=== PATIENT | female | born 1960 | race African-American/Black ===

== ENCOUNTER 2016-11-06 14:55 | Inpatient (IN) | payer OTHER ==
[~2016-11-06] VITALS: Ht 154.9 cm; Wt 86.2 kg
[2016-11-06] VITALS (18 sets, daily range): BP systolic 122–181; BP diastolic 47–84
[2016-11-06 15:55] LABS: BILIRUBIN,URINE SMALL (NEG); GLUCOSE,URINE NEGATIVE (NEG); NITRITE,URINE NEGATIVE (NEG); PH,URINE 5.5; PROTEIN,URINE NEGATIVE (NEG-TRACE); UROBILINOGEN,URINE 0.2 mg/dL (0.2 mg/dL)
[2016-11-06 15:58] LABS: BARBITURATES NEG (NEG); BENZODIAZEPINES NEG (NEG); CANNABINOIDS NEG (NEG); COCAINE NEG (NEG); METHADONE NEG (NEG); OPIATES NEG (NEG); PHENCYCLIDINE NEG (NEG)
[2016-11-06] MEDS ORDERED: hydrALAZINE 20 MG/ML VIAL. IVP ONE (16:00)
[2016-11-06] MEDS: fentaNYL PF VIAL 100 MCG/2 ML VIAL IV PRN ×2 (16:01→17:14)
[2016-11-06 16:04] LABS: BASO # 0.1 x10^3/uL (0.0-0.2); BASO % 1 % (0-3); EOS % 2 % (0-3); HEMATOCRIT 43.1 % (36.0-47.0); HEMOGLOBIN 13.9 g/dL (12.0-15.5); LYMPH # 1.9 x10^3/uL (1.0-4.8); LYMPH % 36 % (24-48); MEAN CORPUSCULAR HEMOGLOBIN 28 pg (25-35); MEAN CORPUSCULAR HGB CONC 32 g/dL (31-37); MEAN CORPUSCULAR VOLUME 87 fL (79-100); MONO % 9 % (0-9); NEUT % 53 % (31-73); PLATELET COUNT 262 x10^3/uL (140-400); RED BLOOD COUNT 4.98 x10^6/uL (3.50-5.40); RED CELL DISTRIBUTION WIDTH 14.3 % (11.5-14.5); WHITE BLOOD COUNT 5.4 x10^3/uL (4.0-11.0)
[2016-11-06 16:06] LABS: BACTERIA,URINE 0 /HPF (0-FEW); RBC,URINE 0 /HPF (0-2); SQUAMOUS EPITHELIAL CELL,UR MOD /LPF
[2016-11-06 16:13] LABS: INR 1.1 (0.8-1.1); PROTHROMBIN TIME PATIENT 13.3 SEC (11.7-14.0)
[2016-11-06 16:15] LABS: CALCIUM 9.4 mg/dL (8.5-10.1); CREATININE 0.8 mg/dL (0.6-1.0); GFR 89.1; POTASSIUM 3.9 mmol/L (3.5-5.1)
--- NOTE | 2016-11-06 16:18 | EKG ---
[facility] [address] [place] [address] Test Date: 2016-11-06 Test Time: 15:58:18 Pat Name: MIRELA PERALES Department: Room: Gender: F Education Analyst: : 1960 Requested By: YOLI HURTADO Order Number: [id number] Reading MD: Mau Ruggiero Measurements Intervals [place] Rate: 67 P: 45 [place]: 166 QRS: 27 QRSD: 82 T: 20 QT: 384 QTc: 409 Interpretive Statements SINUS RHYTHM Electronically Signed On 11-09-2016 8:42:53 CDT by Mau Ruggiero
[2016-11-06 16:21] LABS: ALBUMIN 3.7 g/dL (3.4-5.0); ALBUMIN/GLOBULIN RATIO 0.9 (1.0-1.7); TOTAL BILIRUBIN 0.3 mg/dL (0.2-1.0); TOTAL PROTEIN 7.8 g/dL (6.4-8.2)
--- NOTE | 2016-11-06 16:48 | RAD ---
CT HEAD WITHOUT CONTRAST History: htn headache . Comparison: CT head dated 07/23/2012. Procedure: Axial images are obtained of the head from the skull base through the vertex without IV contrast. Findings: Yates-white matter differentiation is preserved. The ventricles and sulci are normal for the patient's age.. No mass-effect, midline shift, hemorrhage or obvious acute infarction is identified. Basilar cisterns are patent. Bone windows demonstrate no significant calvarial abnormality.The visualized paranasal sinuses appear clear. Mastoid air cells are well aerated. IMPRESSION: No acute intracranial abnormality. PQRS Compliance Statement: One or more of the following individualized dose reduction techniques were utilized for this examination: 1. Automated exposure control 2. Adjustment of the mA and/or kV according to patient size 3. Use of iterative reconstruction technique
[2016-11-06] MEDS ORDERED: ONDANSETRON PF 4 MG/2 ML VIAL. IV PRN (17:15)
[2016-11-06] MEDS ORDERED: ACETAMINOPHEN 325 MG TABLET. PO PRN (17:15)
[2016-11-06] MEDS ORDERED: MORPHINE SULFATE 4 MG/ML DISP.SYRIN. IV PRN (17:15)
--- NOTE | 2016-11-06 17:34 | PHYS DOC ---
Past Medical History Past Medical History: No Pertinent History Past Surgical History: Cholecystectomy, Hysterectomy Alcohol Use: None Drug Use: None Adult General Chief Complaint Chief Complaint: HYPERTENSION HPI HPI Patient is a 56 year old female who presents with headache and hypertension. The patient states she woke up this morning with frontal throbbing headache. A coworker checked her blood pressure at work and found her systolic blood pressure to be greater than 200. She reports mild blurred vision. Denies speech changes, facial droop, extremity numbness or weakness, vomiting, chest pain, shortness of breath, lower extremity edema. Denies history of hypertension. Denies any known past medical history and does not take medications on a daily basis. Nonsmoker. Review of Systems Review of Systems Constitutional: Denies fever or chills Eyes: Reports blurred vision HENT: Denies nasal congestion or sore throat Respiratory: Denies cough or shortness of breath Cardiovascular: Denies chest pain or edema GI: Denies abdominal pain, nausea, vomiting Musculoskeletal: Denies back pain or joint pain Integument: Denies rash or skin lesions Neurologic: Reports headache, denies focal weakness or sensory changes Current Medications Current Medications Current Medications Medications (Trade) Dose Ordered Sig/Viv Start Time Stop Time Status Last Admin Dose Admin Fentanyl Citrate (Fentanyl 2ml Vial) 50 mcg PRN Q15MIN PRN 11/06/16 15:45 11/07/16 15:44 11/06/16 17:14 50 MCG Hydralazine HCl (Apresoline) 10 mg 1X ONCE 11/06/16 16:00 11/06/16 16:01 DC 11/06/16 16:03 10 MG Allergies Allergies Allergies Coded Allergies Type Severity Reaction Last Updated Verified No Known Drug Allergies 11/11/15 No Physical Exam Physical Exam Constitutional: obese, no acute distress, non-toxic appearance. HENT: Normocephalic, atraumatic, bilateral external ears normal, oropharynx moist, nose normal. Eyes: PERRLA, EOMI, conjunctiva normal, no discharge. Neck: supple, no stridor. no meningismus Cardiovascular: RRR, no murmurs, no edema. Lungs & Thorax: LCTAB, no wheezing, no respiratory distress. Abdomen: soft, nontender, nondistended. Skin: Warm, dry, no erythema, no rash. Back: No tenderness. Extremities: No tenderness, no edema. Neurologic: Alert and oriented X 3, CN2-12 grossly intact, symmetric strength/ sensation to UE & LE, no focal deficits noted. Psychologic: Affect normal, judgement normal, mood normal. Current Patient Data Vital Signs Vital Signs Date Time Temp Pulse Resp B/P (MAP) Pulse Ox O2 Delivery O2 Flow Rate FiO2 11/06/16 16:41 81 19 202/81 (121) 99 Room Air 11/06/16 15:08 97.9 97.9 Lab Values Laboratory Tests Test 11/06/16 15:00 11/06/16 15:50 Urine Collection Type Unknown Urine Color Yellow Urine Clarity Clear Urine pH 5.5 Urine Specific [place] 1.025 Urine Protein Negative mg/dL (NEG-TRACE) Urine Glucose (UA) Negative mg/dL (NEG) Urine Ketones (Stick) Negative mg/dL (NEG) Urine Blood Negative (NEG) Urine Nitrite Negative (NEG) Urine Bilirubin Small (NEG) Urine Urobilinogen Dipstick 0.2 mg/dL (0.2 mg/dL) Urine Leukocyte Esterase Small (NEG) Urine RBC 0 /HPF (0-2) Urine WBC 5-10 /HPF (0-4) Urine Squamous Epithelial Cells Mod /LPF Urine Transitional Epithelial Cells Few /LPF Urine Bacteria 0 /HPF (0-FEW) Urine Hyaline Casts Moderate /HPF Urine Mucus Marked /LPF Urine Opiates Screen Neg (NEG) Urine Methadone Screen Neg (NEG) Urine Barbiturates Neg (NEG) Urine Phencyclidine Screen Neg (NEG) Urine Amphetamine/Methamphetamine Neg (NEG) Urine Benzodiazepines Screen Neg (NEG) Urine Cocaine Screen Neg (NEG) Urine Cannabinoids Screen Neg (NEG) Urine Ethyl Alcohol Neg (NEG) White Blood Count 5.4 x10^3/uL (4.0-11.0) Red Blood Count 4.98 x10^6/uL (3.50-5.40) Hemoglobin 13.9 g/dL (12.0-15.5) Hematocrit 43.1 % (36.0-47.0) Mean Corpuscular Volume 87 fL (79-100) Mean Corpuscular Hemoglobin 28 pg (25-35) Mean Corpuscular Hemoglobin Concent 32 g/dL (31-37) Red Cell Distribution Width 14.3 % (11.5-14.5) Platelet Count 262 x10^3/uL (140-400) Neutrophils (%) (Auto) 53 % (31-73) Lymphocytes (%) (Auto) 36 % (24-48) Monocytes (%) (Auto) 9 % (0-9) Eosinophils (%) (Auto) 2 % (0-3) Basophils (%) (Auto) 1 % (0-3) Neutrophils # (Auto) 2.9 x10^3uL (1.8-7.7) Lymphocytes # (Auto) 1.9 x10^3/uL (1.0-4.8) Monocytes # (Auto) 0.5 x10^3/uL (0.0-1.1) Eosinophils # (Auto) 0.1 x10^3/uL (0.0-0.7) Basophils # (Auto) 0.1 x10^3/uL (0.0-0.2) Prothrombin Time 13.3 SEC (11.7-14.0) Prothrombin Time INR 1.1 (0.8-1.1) PTT 29 SEC (24-38) Sodium Level 139 mmol/L (136-145) Potassium Level 3.9 mmol/L (3.5-5.1) Chloride Level 103 mmol/L (98-107) Carbon Dioxide Level 26 mmol/L (21-32) Anion Gap 10 (6-14) Blood Urea Nitrogen 9 mg/dL (7-20) Creatinine 0.8 mg/dL (0.6-1.0) Estimated GFR (Cockcroft-Gault) 89.1 BUN/Creatinine Ratio 11 (6-20) Glucose Level 109 mg/dL (70-99) H Calcium Level 9.4 mg/dL (8.5-10.1) Total Bilirubin 0.3 mg/dL (0.2-1.0) Aspartate Amino Transferase (AST) 22 U/L (15-37) Alanine Aminotransferase (ALT) 18 U/L (14-59) Alkaline Phosphatase 72 U/L (46-116) Troponin I Quantitative < 0.017 ng/mL (0.000-0.055) GB-Jsd-[id number]-Type Natriuretic Peptide 66 pg/mL (0-124) Total Protein 7.8 g/dL (6.4-8.2) Albumin 3.7 g/dL (3.4-5.0) Albumin/Globulin Ratio 0.9 (1.0-1.7) L Laboratory Tests 11/06/16 15:50 Laboratory Tests 11/06/16 15:50 EKG EKG Interpreted by me: Normal sinus rhythm rate 67, no acute ST or T wave changes, normal intervals, no ectopy. [] Radiology/Procedures Radiology/Procedures PROCEDURE: CT HEAD WO CONTRAST CT HEAD WITHOUT CONTRAST History: htn headache . Comparison: CT head dated 07/23/2012. Procedure: Axial images are obtained of the head from the skull base through the vertex without IV contrast. Findings: Yates-white matter differentiation is preserved. The ventricles and sulci are normal for the patient's age.. No mass-effect, midline shift, hemorrhage or obvious acute infarction is identified. Basilar cisterns are patent. Bone windows demonstrate no significant calvarial abnormality.The visualized paranasal sinuses appear clear. Mastoid air cells are well aerated. IMPRESSION: No acute intracranial abnormality. PQRS Compliance Statement: One or more of the following individualized dose reduction techniques were utilized for this examination: 1. Automated exposure control 2. Adjustment of the mA and/or kV according to patient size 3. Use of iterative reconstruction technique DICTATED and SIGNED BY: BEELN VERDIN MD DATE: 11/06/16 1643[] Course & Med Decision Making Course & Med Decision Making Pertinent Labs and Imaging studies reviewed. (See chart for details) The patient presents with accelerated hypertension which is new diagnosis, and headache. Normal neurologic exam. Gave hydralazine and her blood pressure actually increased. Initiated Cardene drip. CT unremarkable for acute intracranial process. Recommended admission to hospital for further evaluation and treatment. The patient agreed with plan of care. Discussed with Dr. yates who agrees to admit to inpatient status, to the ICU. She is being admitted in stable condition. Critical care time: 35 minutes [] Dragon Disclaimer Dragon Disclaimer This electronic medical record was generated, in whole or in part, using a voice recognition dictation system. Departure Departure Impression: Primary Impression: Hypertensive emergency Disposition: ADMITTED INPATIENT Admitting Physician: Allison Yates Condition: GUARDED YOLI HURTADO MD Nov 06, 2016 17:34
--- NOTE | 2016-11-06 19:53 | PDOC1 ---
History and Physical Date of Admission Date of Admission DATE: 11/06/16 TIME: 19:48 Identification/Chief Complaint Chief Complaint headache Problems: Source Source: Chart review, Patient History of Present Illness History of Present Illness pt barreto scant med history, no meds, no MD visit in years today, came to the ER for headache, severe and generalized headache, now improved, pain was 7.10, now almost zero acclerated htn in ER, IV agents, not much better, cardene gtt started, and admit to unit Pt has prior renal stone, Hx of single kidney from , she works at [employer] Past Medical History Cardiovascular: No pertinent hx Pulmonary: No pertinent hx GI: No pertinent hx Heme/Onc: No pertinent hx Hepatobiliary: No pertinent hx Psych: No pertinent hx Rheumatologic: No pertinent hx Infectious disease: No pertinent hx ENT: No pertinent hx Past Surgical History Past Surgical History: Hysterectomy, Other (stone) Family History Family History: Other (COPD, fahter, tobaccoism) Family History: Parent Social History Smoke: No ALCOHOL: social Drugs: None Current Problem List Problem List Problems Medical Problems: (1) Hypertensive emergency Status: Acute Problems: Current Medications Current Medications Current Medications Hydralazine HCl (Apresoline) 10 mg 1X ONCE IVP Last administered on 11/06/16 16:03; Start 11/06/16 at 16:00; Stop 11/06/16 at 16:01; Status DC Fentanyl Citrate (Fentanyl 2ml Vial) 50 mcg PRN Q15MIN PRN IV PAIN GREATER THAN 3/10 Last administered on 11/06/16 17:14; Start 11/06/16 at 15:45; Stop at 15:44 Nicardipine HCl 50 mg/Sodium Chloride 270 ml @ 0 mls/hr CONT PRN IV SEE I/O RECORD Last administered on 11/06/16 17:02; Start 11/06/16 at 17:00 Ondansetron HCl (Zofran) 4 mg PRN Q8HRS PRN IV NAUSEA/VOMITING; Start 11/06/16 at 17:15; Stop 11/07/16 at 17:14 Morphine Sulfate 4 mg PRN Q2HR PRN IV PAIN; Start 11/06/16 at 17:15; Stop 11/07 at 17:14 Acetaminophen (Tylenol) 650 mg PRN Q4HRS PRN PO FEVER; Start 11/06/16 at 17:15 ; Stop 11/07/16 at 17:14 Metoprolol Tartrate (Lopressor) 25 mg BID PO ; Start 11/06/16 at 21:00; Status UNV Labetalol HCl (Normodyne) 40 mg PRN Q2HR PRN IVP HYPERTENSION, SEE COMMENTS; Start 11/06/16 at 20:00; Status UNV Zolpidem Tartrate (Ambien) 5 mg PRN QHS PRN PO INSOMNIA; Start 11/06/16 at 20: 00; Status UNV Active Scripts Active Reported No Known Medications Prior To Admisstion (Info) Each 1 Each Allergies Allergies: Coded Allergies: No Known Drug Allergies (Unverified , 11/11/15) ROS General: No: Chills, Night Sweats, Fatigue, Malaise, Appetite, Other PSYCHOLOGICAL ROS: No: Anxiety, Behavioral Disorder, Concentration difficultie , Decreased libido, Depression, Disorientation, Hallucinations, Hostility, Irritablity, Memory difficulties, Mood Swings, Obsessive thoughts, Suicidal ideation, Other Eyes: No Blurry vision, No Decreased vision, No Double vision, No Dry eyes, No Excessive tearing, No Eye Pain, No Itchy Eyes, No Loss of vision, No Photophobia , No Scotomata, No Uses contacts, No Uses glasses, No Other HEENT: YES: Heacaches, No: Visual Changes, Hearing change, Nasal congestion, Nasal discharge, Oral lesions, Sinus pain, Sore Throat, Epistaxis, Sneezing, Snoring, Tinnitus, Vertigo, Vocal changes, Other ENDOCRINE: No: Breast Changes, Galactorrhea, Hair Pattern Changes, Hot Flashes , Malaise/lethargy, Mood Swings, Palpitations, Polydipsia/polyuria, Skin Changes , Temperature Intolerance, Unexpected Weight Changes, Other Respiratory: No: Cough, Hemoptysis, Orthopnea, Pleuritic Pain, Shortness of breath, SOB with excertion, Sputum Changes, Stridor, Tachypnea, Wheezing, Other Cardiovascular: No Chest Pain, No Palpitations, No Orthopnea, No Paroxysmal Noc. Dyspnea, No Edema, No Lt Headedness, No Other Gastrointestinal: No Nausea, No Vomiting, No Abdominal Pain, No Diarrhea, No Constipation, No Melena, No Hematochezia, No Other Genitourinary: No Dysuria, No Frequency, No Incontinence, No Hematuria, No Retention, No Discharge, No Urgency, No Pain, No Flank Pain, No Other, No , No , No , No , No , No , No Musculoskeletal: No Gait Disturbance, No Joint Pain, No Joint Stiffness, No Joint Swelling, No Muscle Pain, No Muscular Weakness, No Pain In:, No Swelling In:, No Other Neurological: No Behavorial Changes, No Bowel/Bladder ControlChng, No Confusion , No Dizziness, No Gait Disturbance, No Headaches, No Impaired Coord/balance, No Memory Loss, No Numbness/Tingling, No Seizures, No Speech Problems, No Tremors, No Visual Changes, No Weakness, No Other Skin: No Dry Skin, No Eczema, No Hair Changes, No Lumps, No Mole Changes, No Mottling, No Nail Changes, No Pruritus, No Rash, No Skin Lesion Changes, No Other, No Acne Physical Exam General: Alert, Oriented X3, Cooperative, No acute distress HEENT: Atraumatic, PERRLA, EOMI, Mucous membr. moist/pink Lungs: Normal air movement Heart: no gallops, no murmurs Rectal Exam: not examined Extremities: No clubbing, No edema, Normal pulses Skin: No rashes, No significant lesion Neuro: Normal gait, Normal tone, Sensation intact, Cranial nerves 3-12 NL Psych/Mental Status: Mood NL Vitals Vitals Vital Signs Date Time Temp Pulse Resp B/P (MAP) Pulse Ox O2 Delivery O2 Flow Rate FiO2 11/06/16 19:04 84 17 172/84 (113) 97 Room Air 11/06/16 18:04 98.2 98.2 Labs Labs Laboratory Tests Test 11/06/16 15:00 11/06/16 15:50 Urine Collection Type Unknown Urine Color Yellow Urine Clarity Clear Urine pH 5.5 Urine Specific [place] 1.025 Urine Protein Negative mg/dL (NEG-TRACE) Urine Glucose (UA) Negative mg/dL (NEG) Urine Ketones (Stick) Negative mg/dL (NEG) Urine Blood Negative (NEG) Urine Nitrite Negative (NEG) Urine Bilirubin Small (NEG) Urine Urobilinogen Dipstick 0.2 mg/dL (0.2 mg/dL) Urine Leukocyte Esterase Small (NEG) Urine RBC 0 /HPF (0-2) Urine WBC 5-10 /HPF (0-4) Urine Squamous Epithelial Cells Mod /LPF Urine Transitional Epithelial Cells Few /LPF Urine Bacteria 0 /HPF (0-FEW) Urine Hyaline Casts Moderate /HPF Urine Mucus Marked /LPF Urine Opiates Screen Neg (NEG) Urine Methadone Screen Neg (NEG) Urine Barbiturates Neg (NEG) Urine Phencyclidine Screen Neg (NEG) Urine Amphetamine/Methamphetamine Neg (NEG) Urine Benzodiazepines Screen Neg (NEG) Urine Cocaine Screen Neg (NEG) Urine Cannabinoids Screen Neg (NEG) Urine Ethyl Alcohol Neg (NEG) White Blood Count 5.4 x10^3/uL (4.0-11.0) Red Blood Count 4.98 x10^6/uL (3.50-5.40) Hemoglobin 13.9 g/dL (12.0-15.5) Hematocrit 43.1 % (36.0-47.0) Mean Corpuscular Volume 87 fL (79-100) Mean Corpuscular Hemoglobin 28 pg (25-35) Mean Corpuscular Hemoglobin Concent 32 g/dL (31-37) Red Cell Distribution Width 14.3 % (11.5-14.5) Platelet Count 262 x10^3/uL (140-400) Neutrophils (%) (Auto) 53 % (31-73) Lymphocytes (%) (Auto) 36 % (24-48) Monocytes (%) (Auto) 9 % (0-9) Eosinophils (%) (Auto) 2 % (0-3) Basophils (%) (Auto) 1 % (0-3) Neutrophils # (Auto) 2.9 x10^3uL (1.8-7.7) Lymphocytes # (Auto) 1.9 x10^3/uL (1.0-4.8) Monocytes # (Auto) 0.5 x10^3/uL (0.0-1.1) Eosinophils # (Auto) 0.1 x10^3/uL (0.0-0.7) Basophils # (Auto) 0.1 x10^3/uL (0.0-0.2) Prothrombin Time 13.3 SEC (11.7-14.0) Prothromb Time International Ratio 1.1 (0.8-1.1) Activated Partial Thromboplast Time 29 SEC (24-38) Sodium Level 139 mmol/L (136-145) Potassium Level 3.9 mmol/L (3.5-5.1) Chloride Level 103 mmol/L (98-107) Carbon Dioxide Level 26 mmol/L (21-32) Anion Gap 10 (6-14) Blood Urea Nitrogen 9 mg/dL (7-20) Creatinine 0.8 mg/dL (0.6-1.0) Estimated GFR (Cockcroft-Gault) 89.1 BUN/Creatinine Ratio 11 (6-20) Glucose Level 109 mg/dL (70-99) Calcium Level 9.4 mg/dL (8.5-10.1) Total Bilirubin 0.3 mg/dL (0.2-1.0) Aspartate Amino Transf (AST/SGOT) 22 U/L (15-37) Alanine Aminotransferase (ALT/SGPT) 18 U/L (14-59) Alkaline Phosphatase 72 U/L (46-116) Troponin I Quantitative < 0.017 ng/mL (0.000-0.055) NU-Izt-O-Type Natriuretic Peptide 66 pg/mL (0-124) Total Protein 7.8 g/dL (6.4-8.2) Albumin 3.7 g/dL (3.4-5.0) Albumin/Globulin Ratio 0.9 (1.0-1.7) Laboratory Tests Test 11/06/16 15:00 11/06/16 15:50 Urine Collection Type Unknown Urine Color Yellow Urine Clarity Clear Urine pH 5.5 Urine Specific [place] 1.025 Urine Protein Negative mg/dL (NEG-TRACE) Urine Glucose (UA) Negative mg/dL (NEG) Urine Ketones (Stick) Negative mg/dL (NEG) Urine Blood Negative (NEG) Urine Nitrite Negative (NEG) Urine Bilirubin Small (NEG) Urine Urobilinogen Dipstick 0.2 mg/dL (0.2 mg/dL) Urine Leukocyte Esterase Small (NEG) Urine RBC 0 /HPF (0-2) Urine WBC 5-10 /HPF (0-4) Urine Squamous Epithelial Cells Mod /LPF Urine Transitional Epithelial Cells Few /LPF Urine Bacteria 0 /HPF (0-FEW) Urine Hyaline Casts Moderate /HPF Urine Mucus Marked /LPF Urine Opiates Screen Neg (NEG) Urine Methadone Screen Neg (NEG) Urine Barbiturates Neg (NEG) Urine Phencyclidine Screen Neg (NEG) Urine Amphetamine/Methamphetamine Neg (NEG) Urine Benzodiazepines Screen Neg (NEG) Urine Cocaine Screen Neg (NEG) Urine Cannabinoids Screen Neg (NEG) Urine Ethyl Alcohol Neg (NEG) White Blood Count 5.4 x10^3/uL (4.0-11.0) Red Blood Count 4.98 x10^6/uL (3.50-5.40) Hemoglobin 13.9 g/dL (12.0-15.5) Hematocrit 43.1 % (36.0-47.0) Mean Corpuscular Volume 87 fL (79-100) Mean Corpuscular Hemoglobin 28 pg (25-35) Mean Corpuscular Hemoglobin Concent 32 g/dL (31-37) Red Cell Distribution Width 14.3 % (11.5-14.5) Platelet Count 262 x10^3/uL (140-400) Neutrophils (%) (Auto) 53 % (31-73) Lymphocytes (%) (Auto) 36 % (24-48) Monocytes (%) (Auto) 9 % (0-9) Eosinophils (%) (Auto) 2 % (0-3) Basophils (%) (Auto) 1 % (0-3) Neutrophils # (Auto) 2.9 x10^3uL (1.8-7.7) Lymphocytes # (Auto) 1.9 x10^3/uL (1.0-4.8) Monocytes # (Auto) 0.5 x10^3/uL (0.0-1.1) Eosinophils # (Auto) 0.1 x10^3/uL (0.0-0.7) Basophils # (Auto) 0.1 x10^3/uL (0.0-0.2) Prothrombin Time 13.3 SEC (11.7-14.0) Prothromb Time International Ratio 1.1 (0.8-1.1) Activated Partial Thromboplast Time 29 SEC (24-38) Sodium Level 139 mmol/L (136-145) Potassium Level 3.9 mmol/L (3.5-5.1) Chloride Level 103 mmol/L (98-107) Carbon Dioxide Level 26 mmol/L (21-32) Anion Gap 10 (6-14) Blood Urea Nitrogen 9 mg/dL (7-20) Creatinine 0.8 mg/dL (0.6-1.0) Estimated GFR (Cockcroft-Gault) 89.1 BUN/Creatinine Ratio 11 (6-20) Glucose Level 109 mg/dL (70-99) Calcium Level 9.4 mg/dL (8.5-10.1) Total Bilirubin 0.3 mg/dL (0.2-1.0) Aspartate Amino Transf (AST/SGOT) 22 U/L (15-37) Alanine Aminotransferase (ALT/SGPT) 18 U/L (14-59) Alkaline Phosphatase 72 U/L (46-116) Troponin I Quantitative < 0.017 ng/mL (0.000-0.055) BX-Sqe-Y-Type Natriuretic Peptide 66 pg/mL (0-124) Total Protein 7.8 g/dL (6.4-8.2) Albumin 3.7 g/dL (3.4-5.0) Albumin/Globulin Ratio 0.9 (1.0-1.7) VTE Prophylaxis Ordered VTE Prophylaxis Devices: Yes VTE Pharmacological Prophylaxi: No Assessment/Plan Assessment/Plan Accelerated Htn admitted to ICU, cardene gtt, will add PO metoprolol, try to transition to PO CCB in Am single kidney, unsure if long needed for renal artery stenosis, CV consult, eval if BP much better in AM I held off on starting LEIDY-i for CV eval CT head negative Obesity, BMI 35 CECILIO BYRNES MD Nov 06, 2016 19:53
[2016-11-06] MEDS ORDERED: ZOLPIDEM 5 MG TABLET. PO PRN (20:00)
[2016-11-06] MEDS ORDERED: LABETALOL 20 MG/4 ML DISP.SYRIN. IVP PRN (20:00)
[2016-11-06] MEDS: METOPROLOL TART IMMED RELEASE 25 MG TABLET. PO SCH (21:07)
[2016-11-07] VITALS (17 sets, daily range): BP systolic 112–172; BP diastolic 49–72
--- NOTE | 2016-11-07 01:53 | ACF ---
Admission Forms Criteria HEADACHES Clinical Indications for Admission to Inpatient Care (Place 'X' for any and all applicable criteria): Admission is indicated for ANY ONE of the following(1)(2)(3)(4): [X]I. Inpatient admission required rather than observational care (Also use Headaches: Observation Care as appropriate) because of ANY ONE of the following: [ ]a) Severe pain requiring acute inpatient management [ ]b) Altered mental status that is severe or persistent [ ]c) Vomiting or dehydration that is severe or persistent [ ]d) New-onset focal neurologic deficit that is severe or persistent [X]e) Hypertension requiring inpatient treatment [ ]f) Severe (new) neurologic findings requiring inpatient care as indicated by ANY ONE of following(9)(10): [ ]1) Papilledema [ ]2) Cerebral edema [ ]3) Mass effect on CT scan [ ]4) Cerebral bleeding, ischemia, or vasospasm(16) [ ]5) Hydrocephalus(17) [ ]6) Uncontrolled seizures [ ]g) IV infusion of anticoagulation, platelet inhibitors vasoactive, or antiarrhythmic medication. [ ]h) Cerebral bleeding, hydrocephalus, or vasospasm monitoring (16) [ ]i) Increased intracranial pressure or cerebral edema monitoring (17) [ ]j) Other condition, treatment or monitoring requiring inpatient admission [ ]II. Unruptured but threatening aneurysm or vascular malformation [ ]III. Venous sinus thrombosis [ ]IV. Increased intracranial pressure [ ]V. Cerebral spinal fluid leak with decreased intracranial pressure [ ]. Medication-overuse headache that has failed all outpatient management options [ ]VII. Vasculitis (eg, giant cell (temporal) arteritis, central nervous system vasculitis) requiring IV corticosteroids, IV antithrombotic therapy, or inpatient monitoring (eg, visual symptoms or findings, other ischemic manifestations)[A](10)(11) Extended stay beyond goal length of stay may be needed for (27): [ ]a) Intractable migraine [ ]b) Subarachnoid or intracranial hemorrhage [ ]c) Malignant hypertension [ ]d) Detoxification from drug withdrawal in medication-overuse headache (29) The original [facility] content created by Marisa Girard has been revised. The portions of the content which have been revised are identified through the use of italic text or in bold, and Marisa Girard has neither reviewed nor approved the modified material.All other unmodified content is copyright [facility]. Please see references footnoted in the original [facility] edition 2016 Admission Criteria Met?: Yes DENISE COLOEY Nov 07, 2016 01:53
[2016-11-07 05:16] LABS: BASO # 0.1 x10^3/uL (0.0-0.2); BASO % 1 % (0-3); EOS % 2 % (0-3); HEMATOCRIT 42.2 % (36.0-47.0); HEMOGLOBIN 13.6 g/dL (12.0-15.5); LYMPH # 2.1 x10^3/uL (1.0-4.8); LYMPH % 34 % (24-48); MEAN CORPUSCULAR HEMOGLOBIN 28 pg (25-35); MEAN CORPUSCULAR HGB CONC 32 g/dL (31-37); MEAN CORPUSCULAR VOLUME 87 fL (79-100); MONO % 10 % (0-9); NEUT % 54 % (31-73); PLATELET COUNT 273 x10^3/uL (140-400); RED BLOOD COUNT 4.85 x10^6/uL (3.50-5.40); RED CELL DISTRIBUTION WIDTH 14.6 % (11.5-14.5); WHITE BLOOD COUNT 6.3 x10^3/uL (4.0-11.0)
[2016-11-07 05:41] LABS: CREATININE 0.9 mg/dL (0.6-1.0); GFR 77.8; POTASSIUM 3.9 mmol/L (3.5-5.1)
[2016-11-07] MEDS: METOPROLOL TART IMMED RELEASE 25 MG TABLET. PO SCH (08:02)
[2016-11-07] MEDS ORDERED: amLODIPine BESYLATE 5 MG TABLET PO SCH (09:00)
--- NOTE | 2016-11-07 10:29 | RAD ---
US RENAL DUPLEX Clinical Indication: HTN Comparison: None. Findings: The right kidney is not well visualized due to patient's body habitus and overlying bowel gas. The left kidney measures 12.6 x 6.9 x 5.1 cm. The proximal left renal artery measures 145 cm/s with resistive index of 0.77. The middle left renal artery measures 152 cm/s with a resistive index of 0.80. The distal left renal artery measures 83 cm/s with a resistive index of 0.79. The aorta measures 130 cm/s. The left renal artery to aortic ratio is 1.17. IMPRESSION: 1. Normal left renal ultrasound and duplex Doppler. 2. The right kidney is not well-visualized due to the patient's body habitus and overlying bowel gas.
--- NOTE | 2016-11-07 13:06 | PDOC ---
PROGRESS NOTES Chief Complaint Chief Complaint Accelerated HTN single kidney, no renal A stenosis Obesity, BMI 35 plan: off cardine drip overnight BP ok without meds, HR LOWER side ok to transfer out of ICU add amlodipine 5mg daily, pt never took HTN meds. may increase dose if need more dc metoprolol renal duplex A done, no stenosis dvt ppx History of Present Illness History of Present Illness headache better no chest pain, sob bp ok when off cardine drip kwame at 60s Vitals Vitals Vital Signs Date Time Temp Pulse Resp B/P (MAP) Pulse Ox O2 Delivery O2 Flow Rate FiO2 11/07/16 12:00 97.5 69 18 164/62 (96) 97 Room Air 97.5 Physical Exam General: Alert, Oriented X3, Cooperative, No acute distress Heart: Regular rate, Normal S1, Normal S2 Lungs: Clear Abdomen: Normal bowel sounds, Soft Extremities: No clubbing, No edema, Normal pulses Skin: No rashes, No significant lesion Labs LABS Laboratory Tests Test 11/06/16 15:00 11/06/16 15:50 11/07/16 04:40 11/07/16 04:49 Urine Collection Type Unknown Urine Color Yellow Urine Clarity Clear Urine pH 5.5 Urine Specific [place] 1.025 Urine Protein Negative mg/dL (NEG-TRACE) Urine Glucose (UA) Negative mg/dL (NEG) Urine Ketones (Stick) Negative mg/dL (NEG) Urine Blood Negative (NEG) Urine Nitrite Negative (NEG) Urine Bilirubin Small (NEG) Urine Urobilinogen Dipstick 0.2 mg/dL (0.2 mg/dL) Urine Leukocyte Esterase Small (NEG) Urine RBC 0 /HPF (0-2) Urine WBC 5-10 /HPF (0-4) Urine Squamous Epithelial Cells Mod /LPF Urine Transitional Epithelial Cells Few /LPF Urine Bacteria 0 /HPF (0-FEW) Urine Hyaline Casts Moderate /HPF Urine Mucus Marked /LPF Urine Opiates Screen Neg (NEG) Urine Methadone Screen Neg (NEG) Urine Barbiturates Neg (NEG) Urine Phencyclidine Screen Neg (NEG) Urine Amphetamine/Methamphetamine Neg (NEG) Urine Benzodiazepines Screen Neg (NEG) Urine Cocaine Screen Neg (NEG) Urine Cannabinoids Screen Neg (NEG) Urine Ethyl Alcohol Neg (NEG) White Blood Count 5.4 x10^3/uL (4.0-11.0) 6.3 x10^3/uL (4.0-11.0) Red Blood Count 4.98 x10^6/uL (3.50-5.40) 4.85 x10^6/uL (3.50-5.40) Hemoglobin 13.9 g/dL (12.0-15.5) 13.6 g/dL (12.0-15.5) Hematocrit 43.1 % (36.0-47.0) 42.2 % (36.0-47.0) Mean Corpuscular Volume 87 fL (79-100) 87 fL (79-100) Mean Corpuscular Hemoglobin 28 pg (25-35) 28 pg (25-35) Mean Corpuscular Hemoglobin Concent 32 g/dL (31-37) 32 g/dL (31-37) Red Cell Distribution Width 14.3 % (11.5-14.5) 14.6 % (11.5-14.5) Platelet Count 262 x10^3/uL (140-400) 273 x10^3/uL (140-400) Neutrophils (%) (Auto) 53 % (31-73) 54 % (31-73) Lymphocytes (%) (Auto) 36 % (24-48) 34 % (24-48) Monocytes (%) (Auto) 9 % (0-9) 10 % (0-9) Eosinophils (%) (Auto) 2 % (0-3) 2 % (0-3) Basophils (%) (Auto) 1 % (0-3) 1 % (0-3) Neutrophils # (Auto) 2.9 x10^3uL (1.8-7.7) 3.4 x10^3uL (1.8-7.7) Lymphocytes # (Auto) 1.9 x10^3/uL (1.0-4.8) 2.1 x10^3/uL (1.0-4.8) Monocytes # (Auto) 0.5 x10^3/uL (0.0-1.1) 0.6 x10^3/uL (0.0-1.1) Eosinophils # (Auto) 0.1 x10^3/uL (0.0-0.7) 0.1 x10^3/uL (0.0-0.7) Basophils # (Auto) 0.1 x10^3/uL (0.0-0.2) 0.1 x10^3/uL (0.0-0.2) Prothrombin Time 13.3 SEC (11.7-14.0) Prothromb Time International Ratio 1.1 (0.8-1.1) Activated Partial Thromboplast Time 29 SEC (24-38) Sodium Level 139 mmol/L (136-145) 140 mmol/L (136-145) Potassium Level 3.9 mmol/L (3.5-5.1) 3.9 mmol/L (3.5-5.1) Chloride Level 103 mmol/L (98-107) 104 mmol/L (98-107) Carbon Dioxide Level 26 mmol/L (21-32) 27 mmol/L (21-32) Anion Gap 10 (6-14) 9 (6-14) Blood Urea Nitrogen 9 mg/dL (7-20) 14 mg/dL (7-20) Creatinine 0.8 mg/dL (0.6-1.0) 0.9 mg/dL (0.6-1.0) Estimated GFR (Cockcroft-Gault) 89.1 77.8 BUN/Creatinine Ratio 11 (6-20) Glucose Level 109 mg/dL (70-99) 103 mg/dL (70-99) Calcium Level 9.4 mg/dL (8.5-10.1) 9.0 mg/dL (8.5-10.1) Total Bilirubin 0.3 mg/dL (0.2-1.0) Aspartate Amino Transf (AST/SGOT) 22 U/L (15-37) Alanine Aminotransferase (ALT/SGPT) 18 U/L (14-59) Alkaline Phosphatase 72 U/L (46-116) Troponin I Quantitative < 0.017 ng/mL (0.000-0.055) ZH-Uqi-A-Type Natriuretic Peptide 66 pg/mL (0-124) Total Protein 7.8 g/dL (6.4-8.2) Albumin 3.7 g/dL (3.4-5.0) Albumin/Globulin Ratio 0.9 (1.0-1.7) Review of Systems Review of Systems no fever, chills, sob or chest pain Assessment and Plan Assessmemt and Plan Problems Medical Problems: (1) Hypertensive emergency Status: Acute Problems: Comment Review of Relevant I have reviewed the following items thang (where applicable) has been applied. Labs Laboratory Tests Test 11/06/16 15:00 11/06/16 15:50 11/07/16 04:40 11/07/16 04:49 Urine Collection Type Unknown Urine Color Yellow Urine Clarity Clear Urine pH 5.5 Urine Specific [place] 1.025 Urine Protein Negative mg/dL (NEG-TRACE) Urine Glucose (UA) Negative mg/dL (NEG) Urine Ketones (Stick) Negative mg/dL (NEG) Urine Blood Negative (NEG) Urine Nitrite Negative (NEG) Urine Bilirubin Small (NEG) Urine Urobilinogen Dipstick 0.2 mg/dL (0.2 mg/dL) Urine Leukocyte Esterase Small (NEG) Urine RBC 0 /HPF (0-2) Urine WBC 5-10 /HPF (0-4) Urine Squamous Epithelial Cells Mod /LPF Urine Transitional Epithelial Cells Few /LPF Urine Bacteria 0 /HPF (0-FEW) Urine Hyaline Casts Moderate /HPF Urine Mucus Marked /LPF Urine Opiates Screen Neg (NEG) Urine Methadone Screen Neg (NEG) Urine Barbiturates Neg (NEG) Urine Phencyclidine Screen Neg (NEG) Urine Amphetamine/Methamphetamine Neg (NEG) Urine Benzodiazepines Screen Neg (NEG) Urine Cocaine Screen Neg (NEG) Urine Cannabinoids Screen Neg (NEG) Urine Ethyl Alcohol Neg (NEG) White Blood Count 5.4 x10^3/uL (4.0-11.0) 6.3 x10^3/uL (4.0-11.0) Red Blood Count 4.98 x10^6/uL (3.50-5.40) 4.85 x10^6/uL (3.50-5.40) Hemoglobin 13.9 g/dL (12.0-15.5) 13.6 g/dL (12.0-15.5) Hematocrit 43.1 % (36.0-47.0) 42.2 % (36.0-47.0) Mean Corpuscular Volume 87 fL (79-100) 87 fL (79-100) Mean Corpuscular Hemoglobin 28 pg (25-35) 28 pg (25-35) Mean Corpuscular Hemoglobin Concent 32 g/dL (31-37) 32 g/dL (31-37) Red Cell Distribution Width 14.3 % (11.5-14.5) 14.6 % (11.5-14.5) Platelet Count 262 x10^3/uL (140-400) 273 x10^3/uL (140-400) Neutrophils (%) (Auto) 53 % (31-73) 54 % (31-73) Lymphocytes (%) (Auto) 36 % (24-48) 34 % (24-48) Monocytes (%) (Auto) 9 % (0-9) 10 % (0-9) Eosinophils (%) (Auto) 2 % (0-3) 2 % (0-3) Basophils (%) (Auto) 1 % (0-3) 1 % (0-3) Neutrophils # (Auto) 2.9 x10^3uL (1.8-7.7) 3.4 x10^3uL (1.8-7.7) Lymphocytes # (Auto) 1.9 x10^3/uL (1.0-4.8) 2.1 x10^3/uL (1.0-4.8) Monocytes # (Auto) 0.5 x10^3/uL (0.0-1.1) 0.6 x10^3/uL (0.0-1.1) Eosinophils # (Auto) 0.1 x10^3/uL (0.0-0.7) 0.1 x10^3/uL (0.0-0.7) Basophils # (Auto) 0.1 x10^3/uL (0.0-0.2) 0.1 x10^3/uL (0.0-0.2) Prothrombin Time 13.3 SEC (11.7-14.0) Prothromb Time International Ratio 1.1 (0.8-1.1) Activated Partial Thromboplast Time 29 SEC (24-38) Sodium Level 139 mmol/L (136-145) 140 mmol/L (136-145) Potassium Level 3.9 mmol/L (3.5-5.1) 3.9 mmol/L (3.5-5.1) Chloride Level 103 mmol/L (98-107) 104 mmol/L (98-107) Carbon Dioxide Level 26 mmol/L (21-32) 27 mmol/L (21-32) Anion Gap 10 (6-14) 9 (6-14) Blood Urea Nitrogen 9 mg/dL (7-20) 14 mg/dL (7-20) Creatinine 0.8 mg/dL (0.6-1.0) 0.9 mg/dL (0.6-1.0) Estimated GFR (Cockcroft-Gault) 89.1 77.8 BUN/Creatinine Ratio 11 (6-20) Glucose Level 109 mg/dL (70-99) 103 mg/dL (70-99) Calcium Level 9.4 mg/dL (8.5-10.1) 9.0 mg/dL (8.5-10.1) Total Bilirubin 0.3 mg/dL (0.2-1.0) Aspartate Amino Transf (AST/SGOT) 22 U/L (15-37) Alanine Aminotransferase (ALT/SGPT) 18 U/L (14-59) Alkaline Phosphatase 72 U/L (46-116) Troponin I Quantitative < 0.017 ng/mL (0.000-0.055) TB-Zsc-W-Type Natriuretic Peptide 66 pg/mL (0-124) Total Protein 7.8 g/dL (6.4-8.2) Albumin 3.7 g/dL (3.4-5.0) Albumin/Globulin Ratio 0.9 (1.0-1.7) Laboratory Tests Test 11/06/16 15:00 11/06/16 15:50 11/07/16 04:40 11/07/16 04:49 Urine Collection Type Unknown Urine Color Yellow Urine Clarity Clear Urine pH 5.5 Urine Specific [place] 1.025 Urine Protein Negative mg/dL (NEG-TRACE) Urine Glucose (UA) Negative mg/dL (NEG) Urine Ketones (Stick) Negative mg/dL (NEG) Urine Blood Negative (NEG) Urine Nitrite Negative (NEG) Urine Bilirubin Small (NEG) Urine Urobilinogen Dipstick 0.2 mg/dL (0.2 mg/dL) Urine Leukocyte Esterase Small (NEG) Urine RBC 0 /HPF (0-2) Urine WBC 5-10 /HPF (0-4) Urine Squamous Epithelial Cells Mod /LPF Urine Transitional Epithelial Cells Few /LPF Urine Bacteria 0 /HPF (0-FEW) Urine Hyaline Casts Moderate /HPF Urine Mucus Marked /LPF Urine Opiates Screen Neg (NEG) Urine Methadone Screen Neg (NEG) Urine Barbiturates Neg (NEG) Urine Phencyclidine Screen Neg (NEG) Urine Amphetamine/Methamphetamine Neg (NEG) Urine Benzodiazepines Screen Neg (NEG) Urine Cocaine Screen Neg (NEG) Urine Cannabinoids Screen Neg (NEG) Urine Ethyl Alcohol Neg (NEG) White Blood Count 5.4 x10^3/uL (4.0-11.0) 6.3 x10^3/uL (4.0-11.0) Red Blood Count 4.98 x10^6/uL (3.50-5.40) 4.85 x10^6/uL (3.50-5.40) Hemoglobin 13.9 g/dL (12.0-15.5) 13.6 g/dL (12.0-15.5) Hematocrit 43.1 % (36.0-47.0) 42.2 % (36.0-47.0) Mean Corpuscular Volume 87 fL (79-100) 87 fL (79-100) Mean Corpuscular Hemoglobin 28 pg (25-35) 28 pg (25-35) Mean Corpuscular Hemoglobin Concent 32 g/dL (31-37) 32 g/dL (31-37) Red Cell Distribution Width 14.3 % (11.5-14.5) 14.6 % (11.5-14.5) Platelet Count 262 x10^3/uL (140-400) 273 x10^3/uL (140-400) Neutrophils (%) (Auto) 53 % (31-73) 54 % (31-73) Lymphocytes (%) (Auto) 36 % (24-48) 34 % (24-48) Monocytes (%) (Auto) 9 % (0-9) 10 % (0-9) Eosinophils (%) (Auto) 2 % (0-3) 2 % (0-3) Basophils (%) (Auto) 1 % (0-3) 1 % (0-3) Neutrophils # (Auto) 2.9 x10^3uL (1.8-7.7) 3.4 x10^3uL (1.8-7.7) Lymphocytes # (Auto) 1.9 x10^3/uL (1.0-4.8) 2.1 x10^3/uL (1.0-4.8) Monocytes # (Auto) 0.5 x10^3/uL (0.0-1.1) 0.6 x10^3/uL (0.0-1.1) Eosinophils # (Auto) 0.1 x10^3/uL (0.0-0.7) 0.1 x10^3/uL (0.0-0.7) Basophils # (Auto) 0.1 x10^3/uL (0.0-0.2) 0.1 x10^3/uL (0.0-0.2) Prothrombin Time 13.3 SEC (11.7-14.0) Prothromb Time International Ratio 1.1 (0.8-1.1) Activated Partial Thromboplast Time 29 SEC (24-38) Sodium Level 139 mmol/L (136-145) 140 mmol/L (136-145) Potassium Level 3.9 mmol/L (3.5-5.1) 3.9 mmol/L (3.5-5.1) Chloride Level 103 mmol/L (98-107) 104 mmol/L (98-107) Carbon Dioxide Level 26 mmol/L (21-32) 27 mmol/L (21-32) Anion Gap 10 (6-14) 9 (6-14) Blood Urea Nitrogen 9 mg/dL (7-20) 14 mg/dL (7-20) Creatinine 0.8 mg/dL (0.6-1.0) 0.9 mg/dL (0.6-1.0) Estimated GFR (Cockcroft-Gault) 89.1 77.8 BUN/Creatinine Ratio 11 (6-20) Glucose Level 109 mg/dL (70-99) 103 mg/dL (70-99) Calcium Level 9.4 mg/dL (8.5-10.1) 9.0 mg/dL (8.5-10.1) Total Bilirubin 0.3 mg/dL (0.2-1.0) Aspartate Amino Transf (AST/SGOT) 22 U/L (15-37) Alanine Aminotransferase (ALT/SGPT) 18 U/L (14-59) Alkaline Phosphatase 72 U/L (46-116) Troponin I Quantitative < 0.017 ng/mL (0.000-0.055) QR-Qfk-N-Type Natriuretic Peptide 66 pg/mL (0-124) Total Protein 7.8 g/dL (6.4-8.2) Albumin 3.7 g/dL (3.4-5.0) Albumin/Globulin Ratio 0.9 (1.0-1.7) Medications Current Medications Hydralazine HCl (Apresoline) 10 mg 1X ONCE IVP Last administered on 11/06/16 16:03; Start 11/06/16 at 16:00; Stop 11/06/16 at 16:01; Status DC Fentanyl Citrate (Fentanyl 2ml Vial) 50 mcg PRN Q15MIN PRN IV PAIN GREATER THAN 3/10 Last administered on 11/06/16 17:14; Start 11/06/16 at 15:45; Stop at 15:44 Nicardipine HCl 50 mg/Sodium Chloride 270 ml @ 0 mls/hr CONT PRN IV SEE I/O RECORD Last administered on 11/06/16 22:01; Start 11/06/16 at 17:00; Stop 11/07 at 12:00; Status DC Ondansetron HCl (Zofran) 4 mg PRN Q8HRS PRN IV NAUSEA/VOMITING; Start 11/06/16 at 17:15; Stop 11/07/16 at 17:14 Morphine Sulfate 4 mg PRN Q2HR PRN IV PAIN; Start 11/06/16 at 17:15; Stop 11/07 at 17:14 Acetaminophen (Tylenol) 650 mg PRN Q4HRS PRN PO FEVER; Start 11/06/16 at 17:15 ; Stop 11/07/16 at 17:14 Metoprolol Tartrate (Lopressor) 25 mg BID PO Last administered on 11/06/16 21: 07; Start 11/06/16 at 21:00; Stop 11/07/16 at 08:05; Status DC Labetalol HCl (Normodyne) 40 mg PRN Q2HR PRN IVP HYPERTENSION, SEE COMMENTS; Start 11/06/16 at 20:00 Zolpidem Tartrate (Ambien) 5 mg PRN QHS PRN PO INSOMNIA; Start 11/06/16 at 20: 00 Amlodipine Besylate (Norvasc) 5 mg DAILY PO Last administered on 11/07/16t 08: 52; Start 11/07/16 at 09:00 Active Scripts Active Reported No Known Medications Prior To Admisstion (Info) Each 1 Each Vitals/I & O Vital Sign - Last 24 Hours 11/06/16 11/06/16 11/06/16 11/06/16 15:08 16:03 16:41 17:04 Temp 97.9 97.9 Pulse 78 61 81 Resp 20 19 B/P (MAP) 215/90 (131) 227/98 202/81 (121) 191/79 (116) Pulse Ox 97 99 O2 Delivery Room Air Room Air 11/06/16 11/06/16 11/06/16 11/06/16 17:14 18:04 18:13 18:46 Temp 98.2 98.2 Pulse 100 80 Resp 20 18 B/P (MAP) 178/80 (112) 159/69 (99) 181/58 (99) Pulse Ox 97 96 O2 Delivery Room Air Room Air Room Air 11/06/16 11/06/16 11/06/16 11/06/16 19:04 19:15 19:30 19:45 Pulse 84 96 78 76 Resp 17 18 18 18 B/P (MAP) 172/84 (113) 164/51 (88) 140/52 (81) 155/62 (93) Pulse Ox 97 98 96 96 O2 Delivery Room Air Room Air Room Air Room Air 11/06/16 11/06/16 11/06/16 11/06/16 20:00 20:15 20:30 20:45 Temp 97.7 97.7 Pulse 76 74 72 74 Resp 16 B/P (MAP) 137/60 (85) 147/52 (83) 141/51 (81) 147/58 (87) Pulse Ox 96 95 95 95 O2 Delivery Room Air Room Air Room Air Room Air 11/06/16 11/06/16 11/06/16 11/06/16 21:00 21:07 22:00 22:15 Pulse 80 82 78 76 B/P (MAP) 150/53 (85) 150/53 131/60 (83) 147/61 (89) Pulse Ox 96 95 O2 Delivery Room Air Room Air Room Air 7/24/17 7/24/17 7/24/17 7/24/17 22:30 22:45 23:00 23:15 Pulse 74 66 62 62 B/P (MAP) 137/57 (83) 129/63 (85) 136/48 (77) 123/47 (72) Pulse Ox 94 94 95 95 O2 Delivery Room Air Room Air Room Air Room Air 11/06/16 11/07/16 11/07/16 11/07/16 23:30 00:00 00:30 01:00 Pulse 60 60 60 60 Resp 14 B/P (MAP) 122/49 (73) 131/51 (77) 136/53 (80) 122/60 (80) Pulse Ox 94 94 96 O2 Delivery Room Air Room Air Room Air Room Air 11/07/16 11/07/16 11/07/16 11/07/16 01:30 02:00 02:30 03:00 Pulse 58 58 58 58 Resp 14 14 14 14 B/P (MAP) 121/58 (79) 128/53 (78) 129/54 (79) 128/54 (78) O2 Delivery Room Air Room Air Room Air Room Air 11/07/16 11/07/16 11/07/16 11/07/16 04:00 05:00 06:00 07:00 Temp 97.9 97.9 Pulse 62 60 66 62 Resp 15 15 17 15 B/P (MAP) 140/64 (89) 129/62 (84) 131/57 (81) 133/58 (83) Pulse Ox 96 96 97 O2 Delivery Room Air Room Air Room Air Room Air 11/07/16 11/07/16 11/07/16 11/07/16 07:56 08:00 08:52 12:00 Temp 97.5 97.5 Pulse 70 69 Resp 27 18 B/P (MAP) 131/50 (77) 131/50 164/62 (96) Pulse Ox 97 O2 Delivery Room Air Room Air Room Air Intake and Output 11/06/16 11/06/16 11/07/16 15:00 23:00 07:00 Intake Total 1010 ml 372 ml Output Total 350 ml Balance 1010 ml 22 ml VLADIMIR ARNOLD MD Nov 07, 2016 13:05
[2016-11-07] MEDS ORDERED: traMADol 50 MG TABLET PO PRN (13:15)
[2016-11-07] MEDS ORDERED: ONDANSETRON PF 4 MG/2 ML VIAL. IV PRN (13:15)
[2016-11-07] MEDS ORDERED: MORPHINE SULFATE 2 MG/ML DISP.SYRIN. IV PRN (13:15)
[2016-11-07] MEDS ORDERED: DOCUSATE SODIUM 100 MG CAPSULE. PO PRN (13:15)
[2016-11-07] MEDS ORDERED: hydrALAZINE 20 MG/ML VIAL. IVP PRN ×2 (13:15→15:15)
[2016-11-07] MEDS ORDERED: ACETAMINOPHEN 325 MG TABLET. PO PRN (13:15)
[2016-11-07] MEDS: ENOXAPARIN 40 MG/0.4 ML SYRINGE. SQ SCH (14:00)
--- NOTE | 2016-11-07 15:07 | PDOC ---
PROGRESS NOTES Chief Complaint Chief Complaint SIEGEL Accelerated HTN ASSESSMENT AND PLAN: 1. HTN: still poorly controlled, on Norvasc 5. BB stopped 2/2 borderline kwame. increase Norvasc; decrease threshhold for hydralazine PRN 2. Single kidney; renal US without renal artery stenosis 3. Obesity, BMI 35 4. Prophylaxis: lovenox History of Present Illness History of Present Illness SIEGEL resolved. no CP Vitals Vitals Vital Signs Date Time Temp Pulse Resp B/P (MAP) Pulse Ox O2 Delivery O2 Flow Rate FiO2 11/07/16 14:29 97.8 75 18 172/55 (94) 96 Room Air 97.8 Physical Exam General: Alert, Oriented X3, Cooperative, No acute distress Heart: Regular rate Lungs: Clear Abdomen: Normal bowel sounds, Soft Extremities: No clubbing, No edema Skin: No rashes Labs LABS Laboratory Tests Test 11/06/16 15:50 11/07/16 04:40 11/07/16 04:49 White Blood Count 5.4 x10^3/uL (4.0-11.0) 6.3 x10^3/uL (4.0-11.0) Red Blood Count 4.98 x10^6/uL (3.50-5.40) 4.85 x10^6/uL (3.50-5.40) Hemoglobin 13.9 g/dL (12.0-15.5) 13.6 g/dL (12.0-15.5) Hematocrit 43.1 % (36.0-47.0) 42.2 % (36.0-47.0) Mean Corpuscular Volume 87 fL (79-100) 87 fL (79-100) Mean Corpuscular Hemoglobin 28 pg (25-35) 28 pg (25-35) Mean Corpuscular Hemoglobin Concent 32 g/dL (31-37) 32 g/dL (31-37) Red Cell Distribution Width 14.3 % (11.5-14.5) 14.6 % (11.5-14.5) Platelet Count 262 x10^3/uL (140-400) 273 x10^3/uL (140-400) Neutrophils (%) (Auto) 53 % (31-73) 54 % (31-73) Lymphocytes (%) (Auto) 36 % (24-48) 34 % (24-48) Monocytes (%) (Auto) 9 % (0-9) 10 % (0-9) Eosinophils (%) (Auto) 2 % (0-3) 2 % (0-3) Basophils (%) (Auto) 1 % (0-3) 1 % (0-3) Neutrophils # (Auto) 2.9 x10^3uL (1.8-7.7) 3.4 x10^3uL (1.8-7.7) Lymphocytes # (Auto) 1.9 x10^3/uL (1.0-4.8) 2.1 x10^3/uL (1.0-4.8) Monocytes # (Auto) 0.5 x10^3/uL (0.0-1.1) 0.6 x10^3/uL (0.0-1.1) Eosinophils # (Auto) 0.1 x10^3/uL (0.0-0.7) 0.1 x10^3/uL (0.0-0.7) Basophils # (Auto) 0.1 x10^3/uL (0.0-0.2) 0.1 x10^3/uL (0.0-0.2) Prothrombin Time 13.3 SEC (11.7-14.0) Prothromb Time International Ratio 1.1 (0.8-1.1) Activated Partial Thromboplast Time 29 SEC (24-38) Sodium Level 139 mmol/L (136-145) 140 mmol/L (136-145) Potassium Level 3.9 mmol/L (3.5-5.1) 3.9 mmol/L (3.5-5.1) Chloride Level 103 mmol/L (98-107) 104 mmol/L (98-107) Carbon Dioxide Level 26 mmol/L (21-32) 27 mmol/L (21-32) Anion Gap 10 (6-14) 9 (6-14) Blood Urea Nitrogen 9 mg/dL (7-20) 14 mg/dL (7-20) Creatinine 0.8 mg/dL (0.6-1.0) 0.9 mg/dL (0.6-1.0) Estimated GFR (Cockcroft-Gault) 89.1 77.8 BUN/Creatinine Ratio 11 (6-20) Glucose Level 109 mg/dL (70-99) 103 mg/dL (70-99) Calcium Level 9.4 mg/dL (8.5-10.1) 9.0 mg/dL (8.5-10.1) Total Bilirubin 0.3 mg/dL (0.2-1.0) Aspartate Amino Transf (AST/SGOT) 22 U/L (15-37) Alanine Aminotransferase (ALT/SGPT) 18 U/L (14-59) Alkaline Phosphatase 72 U/L (46-116) Troponin I Quantitative < 0.017 ng/mL (0.000-0.055) SH-Yzo-L-Type Natriuretic Peptide 66 pg/mL (0-124) Total Protein 7.8 g/dL (6.4-8.2) Albumin 3.7 g/dL (3.4-5.0) Albumin/Globulin Ratio 0.9 (1.0-1.7) STAR LOWERY MD Nov 07, 2016 15:07
[2016-11-07] MEDS ORDERED: amLODIPine BESYLATE 5 MG TABLET PO ONE (17:30)
[2016-11-08 03:26] VITALS: BP 163/68
[2016-11-08 05:07] LABS: BASO % 1 % (0-3); EOS % 3 % (0-3); HEMATOCRIT 40.1 % (36.0-47.0); HEMOGLOBIN 12.8 g/dL (12.0-15.5); LYMPH # 2.4 x10^3/uL (1.0-4.8); LYMPH % 41 % (24-48); MEAN CORPUSCULAR HEMOGLOBIN 28 pg (25-35); MEAN CORPUSCULAR HGB CONC 32 g/dL (31-37); MEAN CORPUSCULAR VOLUME 88 fL (79-100); MONO % 10 % (0-9); NEUT % 46 % (31-73); PLATELET COUNT 249 x10^3/uL (140-400); RED BLOOD COUNT 4.57 x10^6/uL (3.50-5.40); RED CELL DISTRIBUTION WIDTH 15.2 % (11.5-14.5); WHITE BLOOD COUNT 5.8 x10^3/uL (4.0-11.0)
[2016-11-08 05:59] LABS: CALCIUM 8.3 mg/dL (8.5-10.1); CREATININE 0.9 mg/dL (0.6-1.0); GFR 77.8; POTASSIUM 3.8 mmol/L (3.5-5.1)
[2016-11-08 07:50] VITALS: BP 143/63
[2016-11-08] MEDS ORDERED: amLODIPine BESYLATE 10 MG TABLET PO SCH (09:00)
[2016-11-08 10:55] VITALS: BP 140/51
[2016-11-08] MEDS ORDERED: AMLO10TA2 PO (11:31)
[2016-11-08] MEDS: ENOXAPARIN 40 MG/0.4 ML SYRINGE. SQ SCH (14:00)
--- NOTE | 2016-11-09 01:16 | DS ---
DATE OF DISCHARGE: 11/08/2016 CHIEF COMPLAINT: Headache, hypertensive urgency. HOSPITAL COURSE: The patient is a 56-year-old -[place] woman who previously had not seen a physician in years who presented to the Emergency Room with severe generalized headache. In the ER, she was found with hypertensive urgency and promptly admitted for further management. She initially was started on Cardizem drip with good resolution of her hypertension, she was switched to Norvasc. This required increase to 10 mg by day 2. She tolerated the medication without problems. Blood pressure was well controlled and she was discharged to home. DISCHARGE PHYSICAL EXAMINATION: VITAL SIGNS: From today show a blood pressure of 140/51, heart rate of 67, respiratory rate at 16. She is afebrile. GENERAL: This is a 56-year-old -[place] woman, alert and oriented, in no acute distress. LUNGS: Clear. HEART: Regular rate and rhythm. ABDOMEN: Has positive bowel sounds, soft, nontender. EXTREMITIES: Show no edema. DISCHARGE DATE: 11/08/2016. DISCHARGE DIAGNOSIS: Hypertensive urgency. DISCHARGE DISPOSITION: To home. DISCHARGE CONDITION: Improved. DISCHARGE MEDICATIONS: Norvasc 10. DISCHARGE INSTRUCTIONS: The patient should find PCP [facility]. STAR LOWERY MD DR: EMILY/nts JOB#: [id number] / [id number] DENICE
== END 2016-11-08 14:57 | disposition home or self-care (01) | DRG 305 ==
LOC: ER 14:55 → 1 WEST ICU 16:50 → 6 SOUTH 11-07 11:47
PROVIDERS: ADMIT Internal Medicine; ATTEND Internal Medicine
DX: I16.1 Hypertensive emergency (principal); I10 Essential (primary) hypertension; E66.9 Obesity, unspecified; R51 Headache; Z68.35 Body mass index [BMI] 35.0-35.9, adult; Z87.442 Personal history of urinary calculi; Z82.5 Family history of asthma and other chronic lower respiratory diseases; Z90.710 Acquired absence of both cervix and uterus; H53.8 Other visual disturbances; Z90.5 Acquired absence of kidney
CPT/HCPCS: 36415; 70450; 80048; 80053; 81001; 83880; 84484; 85027; 85610; 85730; 87086; 87641; 93005; 93975; 96374; 96375; G0481; J0360; J3010; J7050; 99291-25; J7030

== ENCOUNTER → 2016-12-07 | Outpatient (CLI) | payer OTHER ==
[2016-11-08 10:55] VITALS: BP 140/51
[~2016-12-07] MED LIST: AMLO10TA2 PO
[2016-12-07 08:46] LABS: ALBUMIN 3.9 g/dL (3.4-5.0); ALBUMIN/GLOBULIN RATIO 0.9 (1.0-1.7); CALCIUM 8.8 mg/dL (8.5-10.1); CHOLESTEROL/HDL RATIO 3.5; CREATININE 0.7 mg/dL (0.6-1.0); POTASSIUM 3.9 mmol/L (3.5-5.1); TOTAL BILIRUBIN 0.2 mg/dL (0.2-1.0); TOTAL PROTEIN 8.4 g/dL (6.4-8.2)
[2016-12-07 08:57] LABS: FREE T4 1.07 ng/dL (0.76-1.46)
== END | disposition home or self-care (01) ==
LOC: LAB 08:07
PROVIDERS: ATTEND Family Medicine
DX: Z13.220 Encounter for screening for lipoid disorders (principal); I10 Essential (primary) hypertension
CPT/HCPCS: 36415; 80053; 80061; 84439; 84443

== ENCOUNTER → 2017-03-19 | Outpatient (CLI) | payer OTHER ==
[2017-03-19 09:11] LABS: BASO # 0.1 x10^3/uL (0.0-0.2); BASO % 1 % (0-3); EOS % 2 % (0-3); HEMATOCRIT 42.7 % (36.0-47.0); LYMPH # 2.2 x10^3/uL (1.0-4.8); LYMPH % 44 % (24-48); MEAN CORPUSCULAR HEMOGLOBIN 29 pg (25-35); MEAN CORPUSCULAR HGB CONC 33 g/dL (31-37); MEAN CORPUSCULAR VOLUME 88 fL (79-100); MONO % 10 % (0-9); NEUT % 44 % (31-73); PLATELET COUNT 310 x10^3/uL (140-400); RED BLOOD COUNT 4.85 x10^6/uL (3.50-5.40); RED CELL DISTRIBUTION WIDTH 14.3 % (11.5-14.5)
[2017-03-19 09:27] LABS: PROTHROMBIN TIME PATIENT 12.6 SEC (11.7-14.0)
[2017-03-19 09:30] LABS: ALBUMIN 3.8 g/dL (3.4-5.0); CALCIUM 9.6 mg/dL (8.5-10.1); CREATININE 0.8 mg/dL (0.6-1.0); GFR 89.1; POTASSIUM 3.8 mmol/L (3.5-5.1)
[2017-03-19 10:47] LABS: BILIRUBIN,URINE NEGATIVE (NEG); GLUCOSE,URINE NEGATIVE (NEG); NITRITE,URINE NEGATIVE (NEG); PH,URINE 5.5; PROTEIN,URINE NEGATIVE (NEG-TRACE); UROBILINOGEN,URINE 0.2 mg/dL (0.2 mg/dL)
[2017-03-19 11:03] LABS: BACTERIA,URINE FEW /HPF (0-FEW); RBC,URINE RARE /HPF (0-2); SQUAMOUS EPITHELIAL CELL,UR FEW /LPF
--- NOTE | 2017-03-19 13:33 | RAD ---
Chest, 2 views, 03/19/2017: History: Preop evaluation, hypertension Comparison is made to a study from 07/23/2012. The heart size and pulmonary vascularity are normal. No pulmonary infiltrates are seen. There is no evidence of pleural fluid. There are moderate scattered spurs in the spine. IMPRESSION: No acute cardiopulmonary abnormality is detected.
== END | disposition home or self-care (01) ==
LOC: SURGPAT 14:23
PROVIDERS: ATTEND Orthopaedic Surgery
DX: Z01.812 Encounter for preprocedural laboratory examination (principal); M17.0 Bilateral primary osteoarthritis of knee
CPT/HCPCS: 36415; 71020; 80048; 81001; 82040; 85025; 85610; 85651; 85730; 87086; 87641

== ENCOUNTER 2017-04-03 05:56 | Inpatient (IN) | payer OTHER ==
[~2017-04-03] VITALS: Ht 157.5 cm; Wt 84.4 kg
[2017-04-03] VITALS (8 sets, daily range): BP systolic 125–149; BP diastolic 61–73
[2017-04-03] MEDS ORDERED: TRANEXAMIC ACID 1,000 MG in IV NORMAL SALINE 50ML 50 ML INJ ONE ×2 (06:00→08:00)
[2017-04-03] MEDS ORDERED: MORPHINE SULFATE 5 MG, KETOROLAC 30 MG, ROPIVacaine 0.5% PF 60 ML, EPINEPHrine 0.5 MG i... INT ART ONE ×5 (06:00)
[2017-04-03] MEDS ORDERED: HYDROcodone/APAP 7.5/325MG 1 TAB TABLET ONE (06:45)
[2017-04-03] MEDS ORDERED: CELECOXIB 200 MG CAPSULE. ONE (06:45)
[2017-04-03] MEDS: IV RINGERS,LACTATED 1000ML 1,000 ML IV SCH ×2 (06:47→11:03)
[2017-04-03] MEDS ORDERED: ONDANSETRON PF 4 MG/2 ML VIAL. IV PRN (07:00)
[2017-04-03] MEDS ORDERED: HYDROcodone/APAP 7.5/325MG 1 TAB TABLET PO ONE (07:00)
[2017-04-03] MEDS ORDERED: PROCHLORPERAZINE 10 MG/2 ML VIAL. IV PRN ×2 (07:00→11:00)
[2017-04-03] MEDS ORDERED: MORPHINE SULFATE 2 MG/ML DISP.SYRIN. IV PRN ×2 (07:00→11:00)
[2017-04-03] MEDS ORDERED: fentaNYL PF VIAL 100 MCG/2 ML VIAL IV PRN ×3 (07:00→11:00)
[2017-04-03] MEDS ORDERED: HYDROmorphone 2 MG/ML VIAL IV PRN (07:00)
[2017-04-03] MEDS ORDERED: CELECOXIB 200 MG CAPSULE. PO ONE (07:00)
[2017-04-03] MEDS ORDERED: LIDOCAINE 1% PF 2 ML VIAL. ID PRN (07:00)
[2017-04-03] MEDS ORDERED: MIDAZOLAM HCL/PF 2 MG/2 ML VIAL. ONE (07:13)
[2017-04-03] MEDS ORDERED: LIDOCAINE 2% PF Vial for OR 5 ML VIAL. ONE (07:13)
[2017-04-03] MEDS ORDERED: PROPOFOL 20 ML IV ONE (07:13)
[2017-04-03 07:19] LABS: INR 1.1 (0.8-1.1); PROTHROMBIN TIME PATIENT 13.4 SEC (11.7-14.0)
[2017-04-03] MEDS ORDERED: fentaNYL PF VIAL 100 MCG/2 ML VIAL ONE ×2 (08:22→10:46)
--- NOTE | 2017-04-03 08:25 | HP ---
ADMIT DATE: 04/03/2017 CHIEF COMPLAINT: Right knee pain. HISTORY OF PRESENT ILLNESS: The patient has had many years of bilateral knee pain, right much worse than left. She has difficulty walking and with her activities of daily living. Has previously failed other nonoperative treatment including activity modification, injections, use of a cane or other support, but has been putting it off and presented previously in the clinic for further definitive treatment. PAST MEDICAL HISTORY: Significant for hypertension. PAST SURGICAL HISTORY: Total hysterectomy with oophorectomy and cholecystectomy. FAMILY HISTORY: Arthritis in her mother, cancer and emphysema in her father. One sister , but several other siblings that are generally healthy. SOCIAL HISTORY: Denies smoking. Occasional alcohol, denies drug use. MEDICATIONS: List includes amlodipine 10 mg daily. ALLERGIES: She has no known drug allergies. REVIEW OF SYSTEMS: Denies any fever, chills, chest pain, shortness of breath, recent weight loss or gain. No constitutional symptoms or recent illness. PHYSICAL EXAMINATION: VITAL SIGNS: Per admission sheet. HEENT: Atraumatic, normocephalic. HEART: Regular rate and rhythm. LUNGS: Clear to auscultation bilaterally. ABDOMEN: Benign. EXTREMITIES: Examination of the right knee reveals moderate flexion contracture, slight varus, ligamentously stable. Antalgic gait. Normal motion and alignment of bilateral hips and ankles. Slight flexion contracture and moderate patellofemoral crepitus in the left knee as well. Distal pulses and sensation are intact in both lower extremities throughout. IMAGING: X-rays show severe tricompartmental degenerative changes, right worse than left knee. IMPRESSION: Degenerative joint disease, bilateral knees, right worse than left. TREATMENT PLAN: We had previously discussed risks, benefits, postoperative course of total knee arthroplasty including the possibility of infection, nerve or blood vessel damage, medical or other anesthetic complications, continued pain among others. All her questions were answered. Consent was obtained and she agrees to proceed with operative evaluation and treatment, which will occur today with [facility] admission to follow. ADELA KIRKPATRICK MD DR: ANTONIO/freddy JOB#: [id number] / [id number] STEPHANIE Guerrero MD
[2017-04-03] MEDS ORDERED: DEXAMETHASONE SOD PHOS 20 MG/5 ML VIAL. ONE (08:26)
[2017-04-03] MEDS ORDERED: ONDANSETRON PF 4 MG/2 ML VIAL. ONE (08:26)
[2017-04-03] MEDS ORDERED: PHENYLEPHRINE in 0.9% NACL PF 1 MG/10 ML SYRINGE. IV ONE (08:37)
[2017-04-03] MEDS ORDERED: SEVOFLURANE > 120 MINUTES. IH ONE (09:58)
[2017-04-03] MEDS ORDERED: ZOLPIDEM 5 MG TABLET. PO PRN (11:00)
[2017-04-03] MEDS ORDERED: CALCIUM CARBONATE 500 MG TAB.CHEW PO PRN (11:00)
[2017-04-03] MEDS ORDERED: oxyCODONE/APAP 5/325 1 TAB TABLET PO PRN (11:00)
[2017-04-03] MEDS ORDERED: MORPHINE SULFATE 10 MG/ML VIAL. IV PRN (11:00)
[2017-04-03] MEDS ORDERED: traMADol 50 MG TABLET PO PRN ×2 (11:00)
[2017-04-03] MEDS ORDERED: DEXTROSE 50% 25 GM / 50ML DISP.SYRIN. IV PRN (11:00)
[2017-04-03] MEDS ORDERED: 0.9 % SODIUM CHLORIDE 10 ML DISP.SYRIN. IV PRN (11:00)
[2017-04-03] MEDS ORDERED: diphenhydrAMINE 50 MG/ML VIAL IV PRN (11:00)
[2017-04-03] MEDS ORDERED: oxyCODONE/APAP 7.5/325 1 TAB TABLET PO PRN (11:00)
[2017-04-03] MEDS ORDERED: ACETAMINOPHEN 325 MG TABLET. PO PRN (11:00)
[2017-04-03] MEDS ORDERED: MORPHINE SULFATE 4 MG/ML DISP.SYRIN. IV PRN ×2 (11:00)
[2017-04-03] MEDS: fentaNYL PF VIAL 100 MCG/2 ML VIAL IV PRN ×2 (11:02→11:57)
--- NOTE | 2017-04-03 11:26 | PDOC4 ---
Operative Note Operative Note Date of surgery: 04/03/2017 Preoperative diagnosis: Degenerative joint disease right knee, severe contracture right knee with preoperative range of motion 0-15 Postoperative diagnosis: Same with severe tricompartmental degenerative changes significant femoral deformity and contracture Operative procedure: Right total knee arthroplasty Surgeon: Anne Assist: Chrissy Anesthesia: Gen. endotracheal Estimated blood loss 150 mL Complications: None Operative indications: Patient is a 56-year-old female with severe ongoing worsening pain in both knees right much worse than left she's had severe problems with her range of motion difficulties with daily activities. We had gone over the fact that she has severe arthritis and contracture in her knee which we will try to correct to the best of our ability she has a particularly difficult knee and we went through risks then of its postoperative course of possible infection nerve or blood vessel damage continued pain instability medical or other anesthetic complications among others she wishes to proceed with operative evaluation and treatment having given informed consent. Operative text: Patient was identified procedure verified patient placed in the supine position on operating table. After adequate amounts of general endotracheal anesthesia were administered the right lower extremity was placed with a thigh tourniquet prepped and draped in standard sterile fashion. After timeout was performed patient procedure identified and verified a midline incision was made tourniquet was not inflated a medial parapatellar approach was carried out fat pad was excised patella was taken laterally and she had such a severe contracture that she would really not go into flexion readily and I actually had to make the tibial cut with the extra medullary cutting guide first. Collateral ligaments were preserved cruciate ligaments sacrificed she was then able to be put up into adequate flexion to use the intramedullary femoral cutting guide which was cut extra distally to account for her flexion contracture and a size 4 femoral guide was selected after a size 5 initially due to poor coverage over the posterior lateral condyle. AP lateral chamfer cuts were made and ligament balancing carried out box cut was made to accommodate a posterior stabilized implant which was trialed at a size 15. Patella was prepared lateral patellar bone excised for resurfacing patella. Some additional patellar excision was carried out due to a very thick [place] graham patella and particularly I suspect due to the long-standing contracture had a somewhat diminutive patellar tendon which I was concerned with minimizing the stress on. Excellent tracking was noted tibia was drilled and broached trial components were removed aqua Mantis device was used to coagulate the joint capsule bleeders and the following Bell [employer] Nephew components were placed with polymethylmethacrylate rally HV bone cement a size 3 journey nonporous tibial baseplate a size 4 journey to Oxinium bicruciate stabilized femoral component and a size 32 mm resurfacing round patellar component were all cemented in place and excess cement was removed 15 mm spacer was used to hold the knee in extension. Ligament balance was noted to be excellent thorough irrigation carried out normal saline solution spacer was removed and a 15 mm journey 2 cross-linked polyethylene insert was placed along with a Hemovac drain and intra -articular pain catheter. Some of the pain catheter mixture was inadvertently spilled but the remainder of about 10 mL was injected in the joint capsule and surrounding areas closure accomplished with #2 Ethibond suture reinforced with # 1 PDS strata fix suture subcutaneous closure with buried #1 and 2-0 Vicryl subcuticular 3-0 Monocryl at the skin russ dressing with Acticoat was used patient was returned to recovery room in stable condition having tolerated procedure well tourniquet was not used throughout the procedure Chrissy lee was present for the prepping draping assisted in the procedure including skin closure ADELA KIRKPATRICK MD Apr 03, 2017 11:26
--- NOTE | 2017-04-03 11:34 | RAD ---
Indication: Postop right knee. Time of exam 11:12 AM 2 views of the right knee demonstrate postop changes of total knee arthroplasty. The prosthetic elements are in good position. No fracture or loosening is seen. Overlying surgical drains are noted. Impression: Satisfactory postop appearance to the right knee.
[2017-04-03] MEDS: IV DEXTROSE 5 %-0.45 % NACL 1,000 ML IV SCH ×2 (13:12→20:47)
[2017-04-03] MEDS: amLODIPine BESYLATE 10 MG TABLET PO SCH (13:13)
[2017-04-03] MEDS ORDERED: WARFARIN 7.5 MG TABLET. PO ONE (16:00)
[2017-04-03] MEDS: FERROUS SULFATE 325 MG TABLET. PO SCH (16:52)
[2017-04-03] MEDS: KETOROLAC 30 MG, BUPIVACAINE MPF 0.25% 20 ML, EPINEPHrine 0.5 MG in TOTAL VOLUME SYRING... INT ART SCH (17:59)
[2017-04-03] MEDS: HYDROcodone/APAP 10/325 1 TAB TABLET PO PRN (20:00)
[2017-04-03] MEDS: CELECOXIB 200 MG CAPSULE. PO SCH (20:58)
[2017-04-04 04:12] LABS: INR 1.3 (0.8-1.1); PROTHROMBIN TIME PATIENT 15.5 SEC (11.7-14.0)
[2017-04-04] MEDS ORDERED: MAGNESIUM HYDROXIDE 2,400 MG/30 ML ORAL.SUSP. PO PRN (06:00)
[2017-04-04] MEDS: KETOROLAC 30 MG, BUPIVACAINE MPF 0.25% 20 ML, EPINEPHrine 0.5 MG in TOTAL VOLUME SYRING... INT ART SCH (06:18)
[2017-04-04 06:37] LABS: HEMOGLOBIN 10.9 g/dL (12.0-15.5); RED BLOOD COUNT 3.94 x10^6/uL (3.50-5.40); RED CELL DISTRIBUTION WIDTH 14.5 % (11.5-14.5); WHITE BLOOD COUNT 16.6 x10^3/uL (4.0-11.0)
[2017-04-04 06:38] VITALS: BP 141/65
[2017-04-04] MEDS: CELECOXIB 200 MG CAPSULE. PO SCH ×2 (08:51→21:26)
[2017-04-04] MEDS: amLODIPine BESYLATE 10 MG TABLET PO SCH (08:51)
[2017-04-04] MEDS: MULTIVITAMIN with MINERAL TABLET. PO SCH (08:51)
[2017-04-04] MEDS: FERROUS SULFATE 325 MG TABLET. PO SCH ×2 (08:51→17:04)
[2017-04-04] MEDS: SENNOSIDES/DOCUSATE 8.6/50MG TABLET. PO SCH (08:51)
[2017-04-04] MEDS: HYDROcodone/APAP 10/325 1 TAB TABLET PO PRN ×3 (08:52→17:04)
[2017-04-04 11:15] VITALS: BP 129/74
[2017-04-04] MEDS ORDERED: BISACODYL 10 MG SUPP.RECT. PR PRN (16:00)
[2017-04-04] MEDS ORDERED: WARFARIN 5 MG TABLET. PO ONE (16:00)
[2017-04-04 18:06] VITALS: BP 140/63
--- NOTE | 2017-04-04 18:12 | PDOC ---
PROGRESS NOTES Subjective Subjective Problems overnight: Overall doing very well and is pleased with her pain relief on the right knee she said the left knee is somewhat sore. She is thrilled with her increased range of motion Objective Vital Signs Vital Signs Date Time Temp Pulse Resp B/P (MAP) Pulse Ox O2 Delivery O2 Flow Rate FiO2 04/04/17 18:06 97.3 71 18 140/63 (88) 98 Room Air 97.3 04/03/17 15:32 1.0 Physical Exam On exam her Hemovac is out pain catheter intact dressing clean dry intact she has excellent range of motion good stability intact distal neurovascular status Labs Laboratory Tests Test 04/03/17 06:25 04/04/17 03:35 Prothrombin Time 13.4 SEC (11.7-14.0) 15.5 SEC (11.7-14.0) Prothromb Time International Ratio 1.1 (0.8-1.1) 1.3 (0.8-1.1) Activated Partial Thromboplast Time 27 SEC (24-38) White Blood Count 16.6 x10^3/uL (4.0-11.0) Red Blood Count 3.94 x10^6/uL (3.50-5.40) Hemoglobin 10.9 g/dL (12.0-15.5) Hematocrit 35.0 % (36.0-47.0) Mean Corpuscular Volume 89 fL (79-100) Mean Corpuscular Hemoglobin 28 pg (25-35) Mean Corpuscular Hemoglobin Concent 31 g/dL (31-37) Red Cell Distribution Width 14.5 % (11.5-14.5) Platelet Count 291 x10^3/uL (140-400) Laboratory Tests Test 04/04/17 03:35 White Blood Count 16.6 x10^3/uL (4.0-11.0) Red Blood Count 3.94 x10^6/uL (3.50-5.40) Hemoglobin 10.9 g/dL (12.0-15.5) Hematocrit 35.0 % (36.0-47.0) Mean Corpuscular Volume 89 fL (79-100) Mean Corpuscular Hemoglobin 28 pg (25-35) Mean Corpuscular Hemoglobin Concent 31 g/dL (31-37) Red Cell Distribution Width 14.5 % (11.5-14.5) Platelet Count 291 x10^3/uL (140-400) Prothrombin Time 15.5 SEC (11.7-14.0) Prothromb Time International Ratio 1.3 (0.8-1.1) Imaging Postop x-rays show excellent alignment right total knee arthroplasty Assessment Assessment POD# [1], S/P [right total knee arthroplasty] Problems: Plan Plan of Care Continue mobilize with physical therapy standard total knee precautions weightbearing as tolerated Coumadin anticoagulation Plans for short rehabilitation stay on discharge ADELA KIRKPATRICK MD Apr 04, 2017 18:12
[2017-04-05] MEDS: HYDROcodone/APAP 7.5/325MG 1 TAB TABLET PO PRN ×5 (00:40→20:57)
[2017-04-05 05:10] LABS: HEMATOCRIT 28.3 % (36.0-47.0); HEMOGLOBIN 9.3 g/dL (12.0-15.5)
[2017-04-05 05:17] LABS: INR 1.6 (0.8-1.1); PROTHROMBIN TIME PATIENT 18.2 SEC (11.7-14.0)
[2017-04-05 05:52] VITALS: BP 124/56
[2017-04-05 07:53] VITALS: BP 132/68
[2017-04-05] MEDS: SENNOSIDES/DOCUSATE 8.6/50MG TABLET. PO SCH (07:53)
[2017-04-05] MEDS: CELECOXIB 200 MG CAPSULE. PO SCH ×2 (07:53→20:56)
[2017-04-05] MEDS: MULTIVITAMIN with MINERAL TABLET. PO SCH (07:53)
[2017-04-05] MEDS: FERROUS SULFATE 325 MG TABLET. PO SCH ×2 (07:53→16:46)
[2017-04-05] MEDS: amLODIPine BESYLATE 10 MG TABLET PO SCH (07:56)
--- NOTE | 2017-04-05 12:27 | PDOC ---
PROGRESS NOTES Subjective Subjective Problems overnight:Getting around well, pain controlled, no complaints Objective Vital Signs Vital Signs Date Time Temp Pulse Resp B/P (MAP) Pulse Ox O2 Delivery O2 Flow Rate FiO2 04/05/17 09:31 Room Air 04/05/17 07:56 85 132/68 04/05/17 06:34 16 04/05/17 05:52 97.2 94 97.2 04/03/17 15:32 1.0 Physical Exam Good motion and stability, neuro intact, drains out, incision clean, intact Labs Laboratory Tests Test 04/04/17 03:35 04/05/17 04:40 White Blood Count 16.6 x10^3/uL (4.0-11.0) Red Blood Count 3.94 x10^6/uL (3.50-5.40) Hemoglobin 10.9 g/dL (12.0-15.5) 9.3 g/dL (12.0-15.5) Hematocrit 35.0 % (36.0-47.0) 28.3 % (36.0-47.0) Mean Corpuscular Volume 89 fL (79-100) Mean Corpuscular Hemoglobin 28 pg (25-35) Mean Corpuscular Hemoglobin Concent 31 g/dL (31-37) 33 g/dL (31-37) Red Cell Distribution Width 14.5 % (11.5-14.5) Platelet Count 291 x10^3/uL (140-400) Prothrombin Time 15.5 SEC (11.7-14.0) 18.2 SEC (11.7-14.0) Prothromb Time International Ratio 1.3 (0.8-1.1) 1.6 (0.8-1.1) Laboratory Tests Test 04/05/17 04:40 Hemoglobin 9.3 g/dL (12.0-15.5) Hematocrit 28.3 % (36.0-47.0) Mean Corpuscular Hemoglobin Concent 33 g/dL (31-37) Prothrombin Time 18.2 SEC (11.7-14.0) Prothromb Time International Ratio 1.6 (0.8-1.1) Assessment Assessment POD# [2], S/P [total knee] Problems: Plan Plan of Care Continue mobilize with PT Plan [facility] on discharge Coumadin per pharmacy ADELA KIRKPATRICK MD Apr 05, 2017 12:27
--- NOTE | 2017-04-05 13:25 | PATHOLOGY ---
PATHOLOGY REPORT * * * * * * * * FINAL DIAGNOSIS: Segments of bone and soft tissue, right total knee arthroplasty: - Advanced degenerative arthritis. (JPM:db; 04/05/2017) REPORT ELECTRONICALLY SIGNED BY: Álvaro Nava M.D. DATE/TIME: 04/05/2017 13:25 * * * * * * * * GROSS PATHOLOGY: Received in formalin labeled "Keli Muhammad, right knee bone and tissue," are multiple segments of bone, including tibial plateau, measuring 15.2 x 14.5 x 3.2 cm in aggregate dimensions admixed with soft tissue. The specimen shows focal eburnation of the articular surfaces. Kitchen Worker sections of bone and soft tissue are submitted in cassette A1, following decalcification. (DAC; 04/04/2017) INITIAL CPT CODE(S): A; 44417, 55639 Professional services performed [place] [facility] [place] [address] Technical services performed by [facility] at [address] [place] [address], [facility] [address] [address]. SPECIMEN(S) RECEIVED: A.Right knee bone and tissue CLINICAL HISTORY: Right knee pain, OA PATIENT: KELI MUHAMMAD /AGE: 4 1960 (Age: 56) PATIENT #: [id number] ALT CASE #: SPECIMEN COLLECTION DATE: 04/03/2017 SPECIMEN RECEIVED DATE: 04/03/2017 [facility] - [address] [place] [address] - PHONE: [phone] * * * END OF REPORT * * *
[2017-04-05] MEDS ORDERED: WARFARIN 3 MG TABLET. PO ONE (16:00)
[2017-04-05 18:39] VITALS: BP 133/50
[2017-04-06 06:00] VITALS: BP 123/66
[2017-04-06 06:09] LABS: HEMATOCRIT 28.4 % (36.0-47.0); HEMOGLOBIN 9.3 g/dL (12.0-15.5)
[2017-04-06 06:25] LABS: INR 1.7 (0.8-1.1); PROTHROMBIN TIME PATIENT 19.2 SEC (11.7-14.0)
[2017-04-06] MEDS: FERROUS SULFATE 325 MG TABLET. PO SCH (08:27)
[2017-04-06] MEDS: SENNOSIDES/DOCUSATE 8.6/50MG TABLET. PO SCH (08:27)
[2017-04-06] MEDS: MULTIVITAMIN with MINERAL TABLET. PO SCH (08:27)
[2017-04-06] MEDS: CELECOXIB 200 MG CAPSULE. PO SCH (08:27)
[2017-04-06] MEDS: HYDROcodone/APAP 10/325 1 TAB TABLET PO PRN ×2 (08:28→12:17)
[2017-04-06] MEDS: amLODIPine BESYLATE 10 MG TABLET PO SCH (08:28)
[2017-04-06] MEDS ORDERED: CELE200C PO (10:17)
[2017-04-06] MEDS ORDERED: MULT-638 PO (10:18)
[2017-04-06] MEDS ORDERED: ZOLP5TAB PO (10:23)
[2017-04-06] MEDS ORDERED: SENN1TAB7 PO (10:24)
[2017-04-06] MEDS ORDERED: WARF4TAB7 PO (10:26)
[2017-04-06] MEDS ORDERED: HYDR-965 PO (10:34)
[2017-04-06 12:18] VITALS: BP 116/64
[2017-04-06] MEDS ORDERED: WARFARIN 3 MG TABLET. PO SCH (13:00)
[2017-04-06] MEDS ORDERED: WARFARIN 4 MG TABLET. PO SCH (13:00)
--- NOTE | 2017-04-06 15:37 | DS ---
DATE OF DISCHARGE: 04/06/2017 PRINCIPAL DIAGNOSES: Degenerative right knee with significant flexion contracture and limited mobility. PROCEDURE: Right total knee arthroplasty. DISPOSITION: To [facility]. Follow up with Dr. Rodríguez in 2 weeks. MEDICATIONS: Include Coumadin as directed by anticoagulation clinic, [facility] 7.5/325 one p.o. q. 6 hours p.r.n. pain. Resume preoperative medications. ACTIVITY: Standard total knee protocol, weightbearing as tolerated. Maintain RUBENS drain, drain may be clipped once the suction shuts off in 1 week if there is no drainage. If there is any type of drainage visible on the dressing, please replace with an Aquacel dressing. BRIEF DESCRIPTION OF HOSPITAL COURSE: The patient underwent an uncomplicated total knee arthroplasty, went well through physical therapy, remained medically stable and was discharged to [facility] in stable condition. ADELA RODRÍGUEZ MD DR: ANTONIO/freddy JOB#: [id number] / [id number]
== END 2017-04-06 13:49 | DRG 470 ==
LOC: OPSVCIP 05:56 → 4 SOUTHEST 12:09
PROVIDERS: ADMIT Orthopaedic Surgery; ATTEND Orthopaedic Surgery
PROC: 0SRC0J9 Replacement of Right Knee Joint with Synthetic Substitute, Cemented, Open Approach (ICD-10-PCS; principal; 2017-04-03 07:30)
DX: M17.11 Unilateral primary osteoarthritis, right knee (principal); I10 Essential (primary) hypertension; Z90.710 Acquired absence of both cervix and uterus; Z82.5 Family history of asthma and other chronic lower respiratory diseases; Z90.49 Acquired absence of other specified parts of digestive tract; Z90.722 Acquired absence of ovaries, bilateral; Z82.61 Family history of arthritis; Z80.9 Family history of malignant neoplasm, unspecified
CPT/HCPCS: 36415; 73560; 85014; 85018; 85027; 85610; 85730; 86850; 86900; 86901; 88305; 88311; C1713; J0171; J0690; J0780; J1100; J1885; J2250; J2270; J2370; J2405; J2704; J2795; J3010; J3490; J7030; J7120; 97110; 97116; 97150; 97535; C1769; J2001

== ENCOUNTER → 2018-07-08 | Outpatient (CLI) | payer OTHER ==
[~2018-07-08] MED LIST changes: -AMLO10TA2 PO; +AMLO10TA8 PO; +CELE200C PO; +HYDR-3165 PO; +LISI10TA2 PO; +MELO15TA23 PO; +MULT-638 PO; +OXYC1TAB15 PO; +OXYC1TAB19 PO; +SENN-161 PO; +WARF-78 PO; +WARF4TAB64 PO; +WARF4TAB68 PO; +ZOLP5TAB PO
[2018-07-08 10:04] LABS: BASO # 0.1 x10^3/uL (0.0-0.2); BASO % 1 % (0-3); EOS # 0.1 x10^3/uL (0.0-0.7); EOS % 2 % (0-3); HEMATOCRIT 43.4 % (36.0-47.0); HEMOGLOBIN 14.3 g/dL (12.0-15.5); LYMPH # 2.2 x10^3/uL (1.0-4.8); LYMPH % 39 % (24-48); MEAN CORPUSCULAR HEMOGLOBIN 28 pg (25-35); MEAN CORPUSCULAR HGB CONC 33 g/dL (31-37); MEAN CORPUSCULAR VOLUME 86 fL (79-100); MONO # 0.5 x10^3/uL (0.0-1.1); MONO % 9 % (0-9); NEUT # 2.7 x10^3uL (1.8-7.7); NEUT % 49 % (31-73); PLATELET COUNT 282 x10^3/uL (140-400); RED BLOOD COUNT 5.07 x10^6/uL (3.50-5.40); WHITE BLOOD COUNT 5.6 x10^3/uL (4.0-11.0)
[2018-07-08 10:04] LABS: BILIRUBIN,URINE NEGATIVE (NEG); CLARITY,URINE CLEAR; COLOR,URINE YELLOW; NITRITE,URINE NEGATIVE (NEG); PH,URINE 5.5; PROTEIN,URINE NEGATIVE (NEG-TRACE); UROBILINOGEN,URINE 0.2 mg/dL (0.2 mg/dL)
--- NOTE | 2018-07-08 10:14 | EKG ---
[facility] [address] [place] [address] Test Date: 2018-07-08 Test Time: 10:11:20 Pat Name: MIRELA PERALES Department: Room: Gender: F Corporate Intern: BANG : 1960 Requested By: ADELA KIRKPATRICK Order Number: [id number] Reading MD: Mau Ruggiero MD Measurements Intervals [place] Rate: 68 P: 52 AL: 174 QRS: 29 QRSD: 78 T: 27 QT: 384 QTc: 413 Interpretive Statements SINUS RHYTHM Electronically Signed On 07-08-2018 11:12:24 CDT by Mau Ruggiero MD
[2018-07-08 10:16] LABS: PROTHROMBIN TIME PATIENT 12.8 SEC (11.7-14.0)
[2018-07-08 10:23] LABS: ALBUMIN 3.8 g/dL (3.4-5.0); CALCIUM 9.4 mg/dL (8.5-10.1); CREATININE 0.8 mg/dL (0.6-1.0); GFR 88.8
[2018-07-08 10:24] LABS: POTASSIUM 4.2 mmol/L (3.5-5.1)
[2018-07-08 10:28] LABS: SQUAMOUS EPITHELIAL CELL,UR MANY /LPF
[2018-07-08 10:29] LABS: BACTERIA,URINE MODERATE /HPF (0-FEW)
--- NOTE | 2018-07-08 11:44 | RAD ---
EXAM: Chest, 2 views. HISTORY: Preoperative evaluation. Shortness of breath. COMPARISON: 03/19/2017 FINDINGS: 2 views of the chest are obtained. There is no infiltrate, pleural effusion or pneumothorax. The heart is normal in size. IMPRESSION: No acute pulmonary finding. Electronically signed by: Yuliana Kinsey MD (07/08/2018 11:41 AM) [facility]
== END | disposition home or self-care (01) ==
LOC: SURGPAT 09:16
PROVIDERS: ATTEND Orthopaedic Surgery
DX: Z01.818 Encounter for other preprocedural examination (principal); I10 Essential (primary) hypertension; Z96.652 Presence of left artificial knee joint
CPT/HCPCS: 36415; 71046; 80048; 81001; 82040; 85025; 85610; 85651; 85730; 87086; 87641; 93005

== ENCOUNTER 2018-07-23 05:41 | Inpatient (IN) | payer OTHER ==
[2018-07-23] VITALS (8 sets, daily range): BP systolic 114–138; BP diastolic 44–63
[~2018-07-23] VITALS: Ht 154.9 cm; Wt 88.0 kg
[~2018-07-23 05:41] MED LIST changes: -MELO15TA23 PO; -OXYC1TAB15 PO; -OXYC1TAB19 PO; -WARF-78 PO; -WARF4TAB68 PO
[2018-07-23] MEDS ORDERED: TRANEXAMIC ACID 1,000 MG in IV NS 50ML -- 1ST BAG INJ ONE (06:00)
[2018-07-23] MEDS ORDERED: MORPHINE SULFATE 5 MG, KETOROLAC 30MG VIAL 30 MG, ROPIVacaine 0.5% PF 60 ML, EPINEPHrin... INT ART ONE ×5 (06:00)
[2018-07-23] MEDS ORDERED: MELOXICAM 7.5 MG TABLET PO PRN (06:00)
[2018-07-23] MEDS ORDERED: WARF-78 PO (06:28)
[2018-07-23] MEDS ORDERED: MELO15TA23 PO (06:29)
[2018-07-23] MEDS: HYDROcodone/APAP 7.5/325MG 1 TAB TABLET PO PRN ×2 (06:36→11:57)
[2018-07-23 06:52] LABS: PROTHROMBIN TIME PATIENT 12.9 SEC (11.7-14.0)
[2018-07-23] MEDS ORDERED: MORPHINE SULFATE 2 MG/ML VIAL. IV PRN ×2 (07:00→07:45)
[2018-07-23] MEDS ORDERED: HYDROmorphone 2 MG/ML VIAL IV PRN (07:00)
[2018-07-23] MEDS ORDERED: IV RINGERS,LACTATED 1000ML 1,000 ML IV SCH (07:00)
[2018-07-23] MEDS ORDERED: PROCHLORPERAZINE 10 MG/2 ML VIAL. IV PRN (07:00)
[2018-07-23] MEDS ORDERED: ONDANSETRON PF 4 MG/2 ML VIAL. IV PRN (07:00)
[2018-07-23] MEDS ORDERED: fentaNYL PF VIAL 100 MCG/2 ML VIAL IV PRN ×2 (07:00→07:45)
[2018-07-23] MEDS ORDERED: ONDANSETRON PF 4 MG/2 ML VIAL. ONE (07:11)
[2018-07-23] MEDS ORDERED: LIDOCAINE 2% PF 5 ML VIAL. ONE (07:11)
[2018-07-23] MEDS ORDERED: fentaNYL PF VIAL 100 MCG/2 ML VIAL ONE ×3 (07:11→11:17)
[2018-07-23] MEDS ORDERED: PROPOFOL 20 ML IV ONE (07:11)
[2018-07-23] MEDS ORDERED: DEXAMETHASONE SOD PHOS 20 MG/5 ML VIAL. ONE (07:11)
[2018-07-23] MEDS ORDERED: MIDAZOLAM HCL/PF 2 MG/2 ML VIAL. ONE (07:11)
[2018-07-23] MEDS ORDERED: DEXTROSE 50% 25 GM / 50ML DISP.SYRIN. IV PRN (07:45)
[2018-07-23] MEDS ORDERED: diphenhydrAMINE 50 MG/ML VIAL IV PRN (07:45)
[2018-07-23] MEDS ORDERED: CALCIUM CARBONATE 500 MG TAB.CHEW PO PRN (07:45)
[2018-07-23] MEDS ORDERED: METOCLOPRAMIDE HCL 10 MG/2 ML VIAL. IV PRN (07:45)
[2018-07-23] MEDS ORDERED: PROCHLORPERAZINE 5 MG TABLET. PO PRN (07:45)
[2018-07-23] MEDS ORDERED: ZOLPIDEM 5 MG TABLET. PO PRN (07:45)
[2018-07-23] MEDS ORDERED: 0.9 % SODIUM CHLORIDE 10 ML DISP.SYRIN. IV PRN (07:45)
[2018-07-23] MEDS ORDERED: TRANEXAMIC ACID 1,000 MG in IV NS 50ML -- 2ND BAG INJ ONE (08:00)
--- NOTE | 2018-07-23 09:04 | PREOP HP ---
DATE OF SERVICE: 07/23/2018 CHIEF COMPLAINT: Left knee pain. HISTORY OF PRESENT ILLNESS: The patient has had a right total knee arthroplasty, doing very well, has severe activity-related pain on her left knee that has been unresponsive to injections and worse since her increased activities since having replaced the right knee. She is severely affected in her work and activities of daily living, worse pain is on startup, but she has pain with increased activities overall. PAST MEDICAL HISTORY: Hypertension, primary osteoarthritis, both knees. PAST SURGICAL HISTORY: Right total knee arthroplasty in 03/2017, cholecystectomy, hysterectomy and oophorectomy. FAMILY HISTORY: Mother is alive. Father with cancer and emphysema. One sister has . Other family members are generally healthy. She has 2 brothers and 6 other sisters. SOCIAL HISTORY: Denies smoking. Occasional alcohol use. Denies drug use. MEDICATIONS: List includes amlodipine, lisinopril and acetaminophen. ALLERGIES: She has no known drug allergies. REVIEW OF SYSTEMS: Denies any chest pain, shortness of breath, constitutional symptoms. PHYSICAL EXAMINATION: VITAL SIGNS: Per admission sheet. HEENT: Atraumatic, normocephalic. HEART: Regular rate and rhythm. LUNGS: Clear to auscultation bilaterally. ABDOMEN: Benign. EXTREMITIES: Examination of the right knee shows a well-healed incision with excellent motion, patellofemoral tracking, ligament balance. Left knee exam slight varus, significant patellofemoral crepitus, joint line tenderness. No gross ligamentous instability. X-rays show severe tricompartmental degenerative changes, left knee. IMPRESSION: 1. Left knee degenerative joint disease. 2. History of low functioning right total knee arthroplasty. TREATMENT PLAN: We had gone over again risks, benefits, postoperative course of total knee arthroplasty, which she is aware of, but this is a review of possible infection, nerve or blood vessel damage, medical or other anesthetic complications among others. All her questions were answered. She wishes to proceed with total knee arthroplasty. [facility] admission to follow. ADELA KIRKPATRICK MD DR: ANTONIO/freddy JOB#: [id number] / [id number]
[2018-07-23] MEDS ORDERED: SEVOFLURANE > 120 MINUTES. IH ONE (09:54)
--- NOTE | 2018-07-23 11:10 | RAD ---
Examination: 2 views of the left knee HISTORY: History of postop COMPARISON: 02/21/2017 FINDINGS: Total knee arthroplasty changes in normal alignment. There is no acute fracture or dislocation identified. Postoperative air and drain identified in the knee joint. Small knee joint effusion is identified. Postsurgical changes identified in the posterior patella. IMPRESSION: Total knee arthroplasty changes in normal alignment Electronically signed by: Floyd Machado MD (07/23/2018 11:08 AM) [id number]
[2018-07-23] MEDS: fentaNYL PF VIAL 100 MCG/2 ML VIAL IV PRN ×2 (11:20→11:57)
[2018-07-23] MEDS: ONDANSETRON PF 4 MG/2 ML VIAL. IV SCH ×2 (12:00→18:00)
[2018-07-23] MEDS ORDERED: IV NORMAL SALINE 1000ML BAG 1,000 ML IV SCH (12:00)
[2018-07-23] MEDS: ONDANSETRON ODT 4 MG TAB.RAPDIS. PO SCH ×2 (12:00→18:00)
--- NOTE | 2018-07-23 12:10 | PDOC4 ---
Operative Note Operative Note Date of surgery: 07/23/2018 Preoperative diagnosis: Degenerative joint disease left knee Postoperative diagnosis: Same with severe contracture and joint deformity Operative procedure: Left total knee arthro-plasty Surgeon: Anne Assist: Kermit Craft nurse practitioner Anesthesia: Gen. Tourniquet time approximately 116 minutes Estimated blood loss: 25 mL Complications: None Specimens: Articular surfaces to pathology Operative indications: Keli is a 58-year-old female who has had excellent results from a previous right knee arthroplasty and has severe degenerative change pain limited motion and difficulty with daily activities and the left knee increasingly since her activity has increased. I had gone over with her risks benefits postoperative course of total knee arthroplasty which she is familiar with the fact that she has very limited range of motion in her knee and restoring that and strength would be quite difficult possibly requiring a longer rehabilitation process. We talked about possibility of infection nerve or blood vessel damage medical or other anesthetic complications continued pain among others all her questions were answered she wishes to proceed with surgical evaluation and treatment. Operative text: Patient was identified procedure verified patient placed in the supine position on the operating table. After adequate amounts of general anesthesia were administered the left lower extremity was prepped and draped in standard sterile fashion with a thigh tourniquet. After timeout was performed patient procedure identified and verified the left lower extremity was exsanguinated by Esmarch bandage tourniquet inflated to 350 mmHg and a standard midline incision was made and a medial parapatellar approach. She was found have very severe deformity of her patella and very limited range of motion probably only about 15-30 of flexion altogether limited by bony deformity. Fat pad was excised patella was everted and although the intramedullary femoral guide was used to make a distal cut an additional 4 mm was taken due to her severe flexion contracture. Still due to her severe posterior condyle deformity flexion could not be achieved to complete the femoral cuts therefore a tibial cut was made with extramedullary cutting guide and good initial medial lateral ligament balance was noted in extension. Posterior cruciate ligament was minimally competent and was sacrificed. I was finally able to get the knee into a flexion to examine the severe deformity to the posterior condyles and a posterior referencing was impossible therefore epicondylar axis was used and a slight 3 external rotation measured off of that to make an anterior cut to then reference the size 5 distal femoral cutting block with an doc wing to pin it in place and then anterior posterior and chamfer cuts were then made. Excellent balancing and ligament stability was noted in flexion and extension. Femoral component was placed and the box was cut to allow a posterior stabilized construct. Trialing was carried out with the tibial tray size 3 and an 11 mm spacer which provided excellent stability and full range of motion ligament balance in flexion extension. Tibia was then drilled and broached patella was prepared with a resurfacing patella medialized as much as possible lateral patellar bone cut at a chamfer to avoid any potential bony impingement. Excellent tracking was noted but her tightness of her quadriceps was significant in terms of limiting her terminal flexion with the patella and a tracking alignment. Synovectomy was performed to avoid any capsular tightness from impeding her full range of motion. Trial components were removed thorough irrigation carried out normal saline solution and the following Bell & Nephew components were then cemented in place with polymethylmethacrylate cement. A size 3 journey tibial baseplate a size 5 Oxinium posterior stabilized femoral component a size 11 temporary spacer and a size 32 mm resurfacing patella excess cement was removed knee was held in extension until the cement was verified to be dry. Thorough irrigation again carried out normal saline solution and an 11 mm spacer was locked in place. A very thorough retinacular closure was accomplished initially with interrupted #2 Ethibond suture at rucks Grecia half centimeter intervals reinforced with a strata fix #1 PDS running suture. Pain catheter and Hemovac drain had previously been placed and the joint capsule and surrounding tissue were injected with pain catheter mixture. Excellent patellofemoral tracking was noted but her quadriceps were noted to be quite tight limiting her full flexion subcutaneous closure with buried Vicryl suture subcuticular 3-0 Monocryl strata fix was placed along with a Acticoat membrane and russ dressing. Tourniquet was deflated during the closure after total tourniquet time slightly less than 2 hours toes were noted be warm pink find deflation of tourniquet patient was returned recovery room in stable condition having tolerated procedure well. Kermit Craft nurse practitioner was present for the procedure including assisting in the prepping draping retraction and skin closure ADELA KIRKPATRICK MD Jul 23, 2018 12:10
--- NOTE | 2018-07-23 12:30 | NUR ---
Received from PACU per bed, alert/oriented, Hemovac & IAC intact, Shiela dressing in place, ALDO kenny & SCD on right, KIMBERLY on left, states discomfort level 6/10, ice pack to knee and elevated on pillow, oriented to surroundings, significant other at bedside call light within reach
--- NOTE | 2018-07-23 12:58 | NUR ---
Geovany held denies nausea or vomiting
[2018-07-23] MEDS ORDERED: WARFARIN 7.5 MG TABLET. PO ONE (16:00)
[2018-07-23] MEDS: FERROUS SULFATE 325 MG TABLET. PO SCH (17:01)
[2018-07-23] MEDS: KETOROLAC 30MG VIAL 30 MG, BUPIVACAINE MPF 0.25% 20 ML, EPINEPHrine 0.5 MG in TOTAL VOL... INT ART SCH (18:26)
--- NOTE | 2018-07-23 18:32 | NUR ---
Zofran held nausea or vomiting noted
--- NOTE | 2018-07-24 01:50 | NUR ---
Geovany held. Morphine given for c/o pain rating 5/10.
[2018-07-24 03:10] VITALS: BP 113/46
[2018-07-24] MEDS ORDERED: MAGNESIUM HYDROXIDE 2,400 MG/30 ML ORAL.SUSP. PO PRN (06:00)
[2018-07-24] MEDS: ONDANSETRON ODT 4 MG TAB.RAPDIS. PO SCH ×2 (06:00)
[2018-07-24] MEDS: ONDANSETRON PF 4 MG/2 ML VIAL. IV SCH ×2 (06:00)
[2018-07-24] MEDS: KETOROLAC 30MG VIAL 30 MG, BUPIVACAINE MPF 0.25% 20 ML, EPINEPHrine 0.5 MG in TOTAL VOL... INT ART SCH (06:03)
--- NOTE | 2018-07-24 06:16 | NUR ---
Voided 50cc clear yellow urine. Bladder scan shows 53cc. Encouraged po intake. Hasn't taken any water. BP 126/52. IAC initiated. Currently denies pain.
[2018-07-24 06:21] VITALS: BP 126/52
[2018-07-24] MEDS: FERROUS SULFATE 325 MG TABLET. PO SCH ×2 (07:26→15:34)
--- NOTE | 2018-07-24 07:36 | PDOC ---
ORTHO PROGRESS NOTES Subjective Patient states feeling well. Post-op Day: 1 Procedure L TKA Vitals Vital Signs Date Time Temp Pulse Resp B/P (MAP) Pulse Ox O2 Delivery O2 Flow Rate FiO2 07/24/18 07:23 Room Air 07/24/18 06:21 98.6 76 16 126/52 (76) 93 98.6 07/23/18 15:45 2.0 Labs Laboratory Tests Test 07/23/18 06:08 Prothrombin Time 12.9 SEC (11.7-14.0) Prothromb Time International Ratio 1.0 (0.8-1.1) Activated Partial Thromboplast Time 29 SEC (24-38) Notes Awake and alert Assessment and Plan POD # 1 S/P L TKA dressings dry and intact motor and sensory intact distally PT today TONG MCDERMOTT APRN Jul 24, 2018 07:36
[2018-07-24] MEDS: MULTIVITAMIN with MINERAL TABLET. PO SCH (07:45)
[2018-07-24] MEDS: SENNOSIDES/DOCUSATE 8.6/50MG TABLET. PO SCH (07:45)
[2018-07-24] MEDS: LISINOPRIL 10 MG TABLET PO SCH (07:46)
[2018-07-24] MEDS: ACETAMINOPHEN 500 MG TABLET PO SCH ×3 (07:46→21:00)
[2018-07-24] MEDS: oxyCODONE/APAP 5/325 1 TAB TABLET PO PRN ×3 (07:46→18:51)
[2018-07-24] MEDS: amLODIPine BESYLATE 10 MG TABLET PO SCH (07:47)
[2018-07-24 08:07] LABS: HEMATOCRIT 31.3 % (36.0-47.0); HEMOGLOBIN 10.2 g/dL (12.0-15.5)
[2018-07-24 08:17] LABS: PROTHROMBIN TIME PATIENT 17.6 SEC (11.7-14.0)
--- NOTE | 2018-07-24 11:36 | NUR ---
Patient came back from her morning PT in the gym in which her Hemovac site was bleeding onto her pants. Upon assessment, it was noted that the Hemovac got pulled out and was just being held on by tape. Hemovac was completed discontinued around 1130 and the site was cleansed for ChloraPrep and covered with gauze as well as a foam dressing. Will continue to monitor.
[2018-07-24] MEDS ORDERED: ONDANSETRON ODT 4 MG TAB.RAPDIS. PO PRN (12:00)
[2018-07-24] MEDS ORDERED: ONDANSETRON PF 4 MG/2 ML VIAL. IV PRN (12:00)
--- NOTE | 2018-07-24 13:31 | NUR ---
Pharmacy Warfarin Dosing Note S: Pharmacy consulted to assist with anticoagulation therapy started 07/23/18 O: MIRELA PERALES is a 58 year old F with TKA, left LABS: Last INR: 1.5 Last HGB: 10.2 Last HCT: 31.3 Last PLT: - Last dose of 7.5 mg given on 07/23/18 at 1620 A:INR of 1.5 is below desired range. Target range for this patient is: 1.6 - 2.5 P: Warfarin dose: 3 mg Today at 1600 Bridge Therapy: None Next INR due 07/25/18 Pharmacy anticoagulation service will continue to follow. JACQUIE FONTAINE [facility], 07/24/18 [id number]
[2018-07-24] MEDS ORDERED: BISACODYL 10 MG SUPP.RECT. PR PRN (16:00)
[2018-07-24] MEDS ORDERED: WARFARIN 3 MG TABLET. PO ONE (16:00)
--- NOTE | 2018-07-24 17:43 | NUR ---
Rajan wrap removed. Hemovac drain site still having a small amount of bleeding present in which the dressing was changed. IAC removed without complications and covered. RUBENS dressing intact and working properly with a scant amount of bloody drainage present on the dressing. Patient laying in bed with ice on her knee. Will continue to monitor.
[2018-07-24 17:59] VITALS: BP 141/50
--- NOTE | 2018-07-24 22:29 | NUR ---
Foam changed to left knee due to drainage. ABD and kerlex also used. ALDO hose applied to left leg. Refused KIMBERLY/SCD.
[2018-07-25] MEDS: ACETAMINOPHEN 500 MG TABLET PO SCH ×4 (03:00→21:38)
[2018-07-25] MEDS: oxyCODONE/APAP 5/325 1 TAB TABLET PO PRN ×4 (05:32→21:38)
[2018-07-25 05:42] VITALS: BP 114/37
[2018-07-25 07:58] LABS: HEMATOCRIT 29.4 % (36.0-47.0); HEMOGLOBIN 9.4 g/dL (12.0-15.5)
[2018-07-25] MEDS: FERROUS SULFATE 325 MG TABLET. PO SCH ×2 (08:00→17:00)
[2018-07-25] MEDS: MULTIVITAMIN with MINERAL TABLET. PO SCH (08:06)
[2018-07-25] MEDS: SENNOSIDES/DOCUSATE 8.6/50MG TABLET. PO SCH (08:10)
[2018-07-25 08:16] LABS: PROTHROMBIN TIME PATIENT 19.2 SEC (11.7-14.0)
--- NOTE | 2018-07-25 10:20 | PDOC ---
PROGRESS NOTES Subjective Subjective Problems overnight: Pain controlled on Percocet, no IV currently as PICC line was removed and tolerating oral meds Objective Vital Signs Vital Signs Date Time Temp Pulse Resp B/P (MAP) Pulse Ox O2 Delivery O2 Flow Rate FiO2 07/25/18 09:46 Room Air 07/25/18 06:39 20 07/25/18 05:42 98.8 88 114/37 (62) 93 98.8 07/23/18 15:45 2.0 Physical Exam Wound VAC clean dry intact with boundary layer no redness or erythema only mild swelling intact distal neurovascular status Labs Laboratory Tests Test 07/24/18 07:30 07/25/18 06:37 Hemoglobin 10.2 g/dL (12.0-15.5) 9.4 g/dL (12.0-15.5) Hematocrit 31.3 % (36.0-47.0) 29.4 % (36.0-47.0) Mean Corpuscular Hemoglobin Concent 33 g/dL (31-37) 32 g/dL (31-37) Prothrombin Time 17.6 SEC (11.7-14.0) 19.2 SEC (11.7-14.0) Prothromb Time International Ratio 1.5 (0.8-1.1) 1.6 (0.8-1.1) Laboratory Tests Test 07/25/18 06:37 Hemoglobin 9.4 g/dL (12.0-15.5) Hematocrit 29.4 % (36.0-47.0) Mean Corpuscular Hemoglobin Concent 32 g/dL (31-37) Prothrombin Time 19.2 SEC (11.7-14.0) Prothromb Time International Ratio 1.6 (0.8-1.1) Imaging Postop x-rays show excellent position total knee arthroplasty Assessment Assessment POD# [2], S/P [reimplantation total knee arthroplasty] Plan Plan of Care Coumadin anticoagulation per pharmacy Likely home with home health Weightbearing as tolerated minimal knee flexion due to allowing wound and flap to heal ADELA KIRKPATRICK MD Jul 25, 2018 10:20
[2018-07-25 12:40] VITALS: BP 142/60
[2018-07-25] MEDS: LISINOPRIL 10 MG TABLET PO SCH (12:50)
[2018-07-25] MEDS: amLODIPine BESYLATE 10 MG TABLET PO SCH (12:51)
--- NOTE | 2018-07-25 13:13 | NUR ---
Pharmacy Warfarin Dosing Note S: Pharmacy consulted to assist with anticoagulation therapy started 07/23/18 O: MIRELA PERALES is a 58 year old F with TKA left LABS: Last INR: 1.6 Last HGB: 9.4 Last HCT: 29.4 Last PLT: - Last dose of 3 mg given on 07/24/18 at 1540 A:INR of 1.6 is within desired range. Target range for this patient is: 1.6 - 2.5 P: Warfarin dose: 3 mg Today at 1600 Bridge Therapy: None Next INR due 4/12 AM Pharmacy anticoagulation service will continue to follow. KEI CHEUNG RPH, 07/25/18 [id number]
--- NOTE | 2018-07-25 15:49 | PATHOLOGY ---
[facility] Accession Number: [id number] . 01 Material submitted: . knee - LEFT KNEE BONE. Modifiers: left . 01 Clinical history: . Left knee osteoarthritis . 02 Diagnosis: Segments of bone and soft tissue, left total knee arthroplasty: - Advanced degenerative arthritis. (JPM/db; 07/24/2018) LBQ/07/24/2018 . 02 Electronically signed: . Álvaro Nava MD, Pathologist NPI- [id number] . 01 Gross description: . The specimen is received in formalin, labeled "Keli Muhammad, left knee bone", are multiple segments of verdugo-yellow bone consisting of recognizable portion of tibia plateau, patella, and jhonson-white, rubbery, meniscus and yellow-verdugo soft tissue. The specimen measures 12.5 x 9.0 x 3.0 cm in aggregate. Eburnation and peripheral osteophytes are identified. [employer] Developer tissue is submitted in A1 after decalcification. ([facility]; 07/23/2018) SHS/SHS . 02 Pathologist provided ICD-10: M17.12 . 02 CPT . 668221, 637187 Specimen Comment: A courtesy copy of this report has been sent to Specimen Comment: [phone]. Specimen Comment: Report sent to DR MOHAN Specimen Comment: A duplicate report has been generated due to demographic updates. Performed at: 01 [facility] [address] [facility] [address], [place] [id number] MD Mario Singh MD Phone: [phone] Performed at: 02 [facility] [address] [place], [place] [id number] MD Álvaro Nava MD Phone: [phone]
[2018-07-25] MEDS ORDERED: WARFARIN 3 MG TABLET. PO ONE (16:00)
--- NOTE | 2018-07-25 16:33 | NUR ---
Tylenol on schedule not given. Pt taking Percocet.
[2018-07-25 18:35] VITALS: BP 128/56
[2018-07-26] MEDS: ACETAMINOPHEN 500 MG TABLET PO SCH ×3 (03:08→13:07)
[2018-07-26] MEDS: oxyCODONE/APAP 5/325 1 TAB TABLET PO PRN ×4 (03:09→16:14)
[2018-07-26 04:47] LABS: HEMOGLOBIN 9.5 g/dL (12.0-15.5)
[2018-07-26 04:56] LABS: PROTHROMBIN TIME PATIENT 17.4 SEC (11.7-14.0)
[2018-07-26 06:00] VITALS: BP 148/47
[2018-07-26] MEDS ORDERED: POLYETHYLENE GLYCOL 3350 17 GM PACKET. PO PRN (06:45)
[2018-07-26] MEDS: FERROUS SULFATE 325 MG TABLET. PO SCH (08:00)
[2018-07-26] MEDS: MULTIVITAMIN with MINERAL TABLET. PO SCH (08:24)
[2018-07-26] MEDS: SENNOSIDES/DOCUSATE 8.6/50MG TABLET. PO SCH (08:24)
[2018-07-26] MEDS: amLODIPine BESYLATE 10 MG TABLET PO SCH (08:26)
[2018-07-26 10:14] VITALS: BP 111/52
--- NOTE | 2018-07-26 10:48 | NUR ---
Pharmacy Warfarin Dosing Note S:Pharmacy consulted to assist with anticoagulation therapy started 07/23/18 with target INR: 1.6 - 2.5 O:MIRELA PERALES is a 58 year old F with TKA, left Allergies:No Known Drug Allergies Height: 5 feet, 1 inches Weight: 88 kg LABS: Last INR: 1.5 Last HGB: 9.5 Last HCT: 30.0 Last PLT: - A:INR below desired Range. Target Range for this patient is: 1.6 - 2.5 P: Warfarin dose: 4 mg will be given today prior to discharge. Give 4 mg daily. Draw INR on 07/29/18, and request attending physician to dose warfarin for a goal INR 1.6 - 2.5 through end of therapy 08/19/18 (4 weeks of therapy). Indication for warfarin is prevention of VTE after major joint surgery. JACQUIE FONTAINE [facility], 07/26/18 104
[2018-07-26] MEDS ORDERED: WARF4TAB68 PO (11:35)
--- NOTE | 2018-07-26 11:56 | NUR ---
MIRELA IS DOING FAIR. RATING HER PAIN BETWEEN 4-7. SHE HAS GOOD PULSES, SENSATION AND FLEXION AND EXTENSION IN BILATERAL FEET. CONTINUES TO HAVE DIFFICULTY IN FLEXION NYLA KNEES.
[2018-07-26 12:53] VITALS: BP 132/45
[2018-07-26] MEDS ORDERED: WARFARIN 4 MG TABLET. PO ONE (13:00)
[2018-07-26 13:06] VITALS: BP 132/45
[2018-07-26] MEDS: LISINOPRIL 10 MG TABLET PO SCH (13:06)
[2018-07-26] MEDS ORDERED: OXYC1TAB15 PO (15:48)
--- NOTE | 2018-07-26 15:53 | SNU/HH DC ---
DISCHARGE ORDERS DISCHARGE INFORMATION: CONDITION ON DISCHARGE: Stable CODE STATUS: Code Status: Full USP: SNF STAY <30 DAYS: Yes HOSPICE: HOSPICE: No HOSPICE EVAL & TREAT: No LTAC: ADMIT TO LTAC: No POST DISCHARGE ORDERS: ACTIVITY ORDERS: Other, see below (WBAT with knee in extension, very gentle knee flexion only to protect quad repair, quad is tight due to preop stiffness) WEIGHT BEARING STATUS: Full weight bearing BATHING ORDERS: Shower-keep dressing dry, No Tub Bath until see WOUND/INCISION CARE: Ice to area for comfort, Keep wound/cast CDI, Keep wound elevated, Do not change dressing OTHER WOUND INSTRUCTIONS: remove plastic and batteries on SundayJULY 30; unscrew from dressing and CHECKS AFTER DISCHARGE: CHECKS AFTER DISCHARGE: Check blood press - daily COMMENTS: follow facility's policy per PTT; should be on cou FOLLOW-UP: ADDITIONAL FOLLOW-UP: call [phone] for a 2 week post op appt with Dr. Rodríguez ANTICOAGULATION F/U NEEDED: Pebbles li MD to manage and monitor coumadin TREATMENT/EQUIPMENT ORDERS: ADAPTIVE EQUIPMENT NEEDED: None, Front wheeled walker Physical Therapy For: Evalulation/Treatment (WBAT knee in extension, very gentle knee flexion only to protect quad repair due to severe preop stiffness) Occupational Therapy For: Evaluation/Treatment DISCHARGE MEDICATIONS: Home Meds Active Scripts Amlodipine Besylate (AMLODIPINE BESYLATE) 10 Mg Tablet, 10 MG PO DAILY, #30 TAB Prov:STAR LOWERY MD 11/08/16 Reported Medications Warfarin Sodium (COUMADIN) 4 Mg Tablet, 4 MG PO 1X for BLOOD THINNER, TAB 07/26/18 Meloxicam (MELOXICAM) 15 Mg Tablet, 15 MG PO 1X for ANTIINFLAM, TAB 07/23/18 Lisinopril (LISINOPRIL) 10 Mg Tablet, 1 TAB PO DAILY for HTN, #30 TAB 5 Refills 07/08/18 Zolpidem Tartrate (AMBIEN) 5 Mg Tablet, 1 TAB PO QHS for INSOMNIA for 30 Days, # 30 TAB 0 Refills Meds not given this hospital admission. May resume home medications as approved by Physician. 04/06/17 ADELA RODRÍGUEZ MD Jul 26, 2018 15:53
--- NOTE | 2018-07-26 16:16 | NUR ---
report called to Yuliana daniel. pain pill given for ride/transfer. paperwork faxed
--- NOTE | 2018-07-26 16:27 | NUR ---
dismissed to [facility]
--- NOTE | 2018-07-29 10:36 | DS ---
DATE OF DISCHARGE: 07/26/2018 of left knee with severe left knee contracture and joint deformity. PROCEDURE: Include a left total knee arthroplasty. DISCHARGE MEDICATIONS: Resume her preoperative medications as well as Percocet 5/325 one p.o. q. 4 hours p.r.n. pain, Coumadin as directed by anticoagulation clinic, currently doses 4 mg daily. DISCHARGE INSTRUCTIONS: Follow up with Dr. Rodríguez in 2 weeks. Maintain RUBENS dressing. Coumadin will be managed by house physician at [facility]. These include weightbearing as tolerated with , very limited gentle knee flexion quadriceps repair due to severe preoperative contracture and quadriceps tightness. BRIEF DESCRIPTION OF HOSPITAL COURSE: The patient underwent an uncomplicated total knee arthroplasty on the left. Postoperatively, remained medically stable. She advanced gently through physical therapy with weightbearing as tolerated and restrictions of knee flexion due to her severe repair. She Coumadin and other vital signs remained stable throughout her stay and she was discharged to [facility] in stable condition. ADELA RODRÍGUEZ MD DR: ANTONIO/freddy JOB#: [id number] / [id number] STEPHANIE Guerrero MD
== END 2018-07-26 16:32 | DRG 470 ==
LOC: OPSVCIP 05:41 → 4 SOUTHEST 12:33
PROVIDERS: ADMIT Orthopaedic Surgery; ATTEND Orthopaedic Surgery
PROC: 0SRD069 Replacement of Left Knee Joint with Oxidized Zirconium on Polyethylene Synthetic Substitute, Cemented, Open Approach (ICD-10-PCS; principal; 2018-07-23 07:30)
DX: M17.12 Unilateral primary osteoarthritis, left knee (principal); I10 Essential (primary) hypertension; M24.562 Contracture, left knee; M21.962 Unspecified acquired deformity of left lower leg; Z96.651 Presence of right artificial knee joint; Z90.710 Acquired absence of both cervix and uterus; Z90.721 Acquired absence of ovaries, unilateral; Z79.899 Other long term (current) drug therapy; Z90.49 Acquired absence of other specified parts of digestive tract; Z82.5 Family history of asthma and other chronic lower respiratory diseases
CPT/HCPCS: 36415; 73560; 85014; 85018; 85610; 85730; 86850; 86900; 86901; 88305; 88311; A7015; C1713; J0171; J0696; J1100; J1885; J2001; J2250; J2270; J2405; J2704; J2795; J3010; J3490; J7030; J7120; 97116; 97150; 97530; 97535; C1769

== ENCOUNTER 2018-09-17 09:26 | Day surgery (SDC) | payer OTHER ==
[~2018-09-17] VITALS: Ht 154.9 cm; Wt 83.0 kg
[~2018-09-17 09:26] MED LIST changes: +HYDROmorphone 2 MG/ML VIAL IV PRN; +IV RINGERS,LACTATED 1000ML 1,000 ML IV SCH; +LIDOCAINE 1% PF 2 ML VIAL. ID PRN; +MELO15TA23 PO; +MORPHINE SULFATE 2 MG/ML VIAL. IV PRN; +ONDANSETRON PF 4 MG/2 ML VIAL. IV PRN; +OXYC1TAB15 PO; +PROCHLORPERAZINE 10 MG/2 ML VIAL. IV PRN; +WARF-78 PO; +WARF4TAB68 PO; +ceFAZolin 2GM PREMIX 2 GM/50 ML BAG IV ONE; +fentaNYL PF VIAL 100 MCG/2 ML VIAL IV PRN
[2018-09-17] MEDS ORDERED: OXYC1TAB19 PO (11:42)
[2018-09-17] MEDS ORDERED: DEXAMETHASONE SOD PHOS 4 MG/ML VIAL ONE ×2 (11:45→12:00)
[2018-09-17] MEDS ORDERED: fentaNYL PF VIAL 100 MCG/2 ML VIAL ONE ×5 (11:45→14:52)
[2018-09-17] MEDS ORDERED: LIDOCAINE 2% PF 5 ML VIAL. ONE ×2 (11:45→12:00)
[2018-09-17] MEDS ORDERED: ONDANSETRON PF 4 MG/2 ML VIAL. ONE ×2 (11:45→12:00)
[2018-09-17] MEDS ORDERED: PROPOFOL 20 ML IV ONE (11:45)
[2018-09-17] MEDS ORDERED: MIDAZOLAM HCL/PF 2 MG/2 ML VIAL. ONE ×2 (11:45→12:00)
[2018-09-17] MEDS ORDERED: BUPIVAC MPF-EPI 0.5%-1:200000 30 ML VIAL. ONE ×2 (11:47→12:41)
[2018-09-17] MEDS ORDERED: PROPOFOL 10 MG/ML (20ML) VIAL. IV ONE (12:00)
[2018-09-17] MEDS ORDERED: BUPIVAC MPF-EPI 0.5%-1:200000 30 ML VIAL. INJ ONE (13:33)
[2018-09-17] MEDS ORDERED: ALBUTEROL SULFATE 2.5 MG/3 ML NEBU. ONE (14:21)
[2018-09-17] MEDS ORDERED: oxyCODONE/APAP 7.5/325 1 TAB TABLET PO ONE (14:45)
--- NOTE | 2018-09-17 14:45 | PDOC4 ---
Operative Note Operative Note Date of surgery: 09/17/2018 Preoperative diagnosis history left total knee arthroplasty with limited range of motion adhesive capsulitis Postoperative diagnosis: Same Operative procedure: Left knee arthroscopy lysis of adhesions and manipulation under anesthesia Surgeon: Anne Anesthesia: Gen. Estimated blood loss: 5 mL Complications: None Operative indications: Keli is a 58-year-old female who has very poor range of motion of a previous total knee arthroplasty on the right done elsewhere with essentially only motion about over an arc of 25-30. She had severe degenerative change and deformity and underwent a left total knee arthroplasty by me now about 2 months out and has similar stiffness on the left knee to what she did on the right despite my orders and plans for aggressive physical therapy. I had gone over with her the scarring at this point really will not allow her to progress even with physical therapy or other techniques and we explored the possibility of an arthroscopic procedure where we go in and clean out her scar tissue and restore much motion as possible and then attempt to keep that motion with ongoing physical therapy. She asked of both knees can be done at once but I told her that I preferred to do the most recent first because this can be a painful process and it requires extensive physical therapy to stretch and strengthen and keep the motion that she aren't he has. I told her we could later talk about performing this on the other knee if she gets excess on this knee but that is by no means guaranteed. We talked about the possibility of infection nerve or blood vessel damage among other possible complications but by far recurrence of her stiffness is the most common. All her questions were answered she wishes to proceed with surgical evaluation and treatment as above. Operative text: Patient was identified procedure verified patient placed in the supine position on the operating table. After adequate amounts of general a nesthesia were administered the left lower extremity was prepped and draped in standard sterile fashion with a thigh tourniquet. After timeout was performed patient procedure identified and verified exam under anesthesia first indicated an initial range of motion only about 25-30 arc of flexion. Ligaments were stable blood patellofemoral joint although stiff appeared to be well aligned. Medial and lateral portals were established and the arthroscopic trocar was used to perform initial lysis of adhesions to allow mobility of the scope inside the joint. Alignment of the patellofemoral joint was overall good she had extensive adhesions in the suprapatellar pouch area as well as the medial and lateral gutters all of which were lysed with the arthroscopic shaver and excess scar tissue removed to prevent re-formation. Gentle manipulation was then carried out initially noting some release of her quadriceps adhesions and gaining approximately 60 of flexion and mildly improve extension to about -15 further extensive lysis of adhesions were carried out with an arthroscopic switching stick to elevate any scar tissue of the quadriceps tightened off the anterior femur as well as medial lateral aspects of femur with further gentle manipulation I was able to flex the knee slightly past 90 but then she was extremely tight she continued to track well at the patellofemoral joint and I did not want to go further because I felt there was a significant risk of fracture with pushing the tissues further. Her final range of motion approximately 11 to 92 flexion and again good ligamentous stability patellofemoral tracking were noted throughout the joint was drained of arthroscopic fluid portals closed with nylon suture the joint capsule and portal areas specifically were injected with half percent plain Marcaine sterile dressings were applied followed by an Rajan wrap patient was returned to recovery room in stable condition having tolerated the procedure well. She was given strict restrictions to proceed with immediate physical therapy and aggressive range of motion to keep as much as possible of the motion that was restored ADELA KIRKPATRICK MD Sep 17, 2018 14:45
--- NOTE | 2018-09-17 15:06 | DISCH ---
DISCHARGE INSTRUCTIONS Condition on Discharge Condition on Discharge: Stable Activity After Discharge Activity Instructions for Disc: Other, see below (immediate aggressive range of motion to the need to keep the new range of motion obtained, start physical therapy CASSIDY, CPM machine to be arranged for home use) Bathing Instructions: Shower-keep dressing dry, No Tub Bath until see Lifting Instructions after Dis: No heavy lifting, No pulling or pushing, Do not lift >10 pounds Exercise Instruction after Dis: Exercise per therapy Driving Instructions after Dis: Do not drive Weight Bearing Status after Di: As tolerated Diet after Discharge Diet after Discharge: Regular Diet Texture: Regular Swallowing Supervision: None needed Wound Incision Care Wound/Incision Care: Ice to area for comfort, Keep wound elevated, Change dressing (May remove dressing in 3 days may then shower no soaking until sutures removed) Community/Resources/Services Services at Discharge: PT EVALUATE & TREAT (written prescription issued, please call today for an appointment in outpatient physical therapy at [place] tomorrow, staff has been notified) Contacting the DRHao after DC Call your doctor for: Concerns you may have Follow-Up Follow up with: Dr. Rodríguez 1 week Treatment/Equipment after DC Adaptive Equipment Issued: None ADELA RODRÍGUEZ MD Sep 17, 2018 15:06
[2018-09-17 15:25] VITALS: BP 151/55
[2018-09-17] MEDS ORDERED: ALBUTEROL SULFATE 2.5 MG/3 ML NEBU. NEB ONE (16:00)
== END 2018-09-17 16:05 | disposition home or self-care (01) ==
LOC: SURG 09:26
PROVIDERS: ATTEND Orthopaedic Surgery
DX: M75.02 Adhesive capsulitis of left shoulder (principal); M25.662 Stiffness of left knee, not elsewhere classified; M17.0 Bilateral primary osteoarthritis of knee; K66.0 Peritoneal adhesions (postprocedural) (postinfection); I10 Essential (primary) hypertension; Z90.710 Acquired absence of both cervix and uterus; Z90.722 Acquired absence of ovaries, bilateral; Z90.49 Acquired absence of other specified parts of digestive tract; Z96.653 Presence of artificial knee joint, bilateral; Z72.89 Other problems related to lifestyle
CPT/HCPCS: 27570; 29825; 94640; A7015; J0696; J1100; J2001; J2250; J2405; J2704; J3010; J3490; J7120; J7613

== ENCOUNTER 2018-10-08 15:59 | Emergency (ER) | payer OTHER ==
[~2018-10-08] VITALS: Ht 154.9 cm; Wt 81.6 kg
[~2018-10-08 15:59] MED LIST changes: -HYDROmorphone 2 MG/ML VIAL IV PRN; -IV RINGERS,LACTATED 1000ML 1,000 ML IV SCH; -LIDOCAINE 1% PF 2 ML VIAL. ID PRN; -MORPHINE SULFATE 2 MG/ML VIAL. IV PRN; -ONDANSETRON PF 4 MG/2 ML VIAL. IV PRN; +OXYC1TAB19 PO; -PROCHLORPERAZINE 10 MG/2 ML VIAL. IV PRN; -ceFAZolin 2GM PREMIX 2 GM/50 ML BAG IV ONE; -fentaNYL PF VIAL 100 MCG/2 ML VIAL IV PRN
[2018-10-08 16:30] LABS: BASO % 0 % (0-3); EOS # 0.2 x10^3/uL (0.0-0.7); EOS % 3 % (0-3); HEMATOCRIT 33.1 % (36.0-47.0); HEMOGLOBIN 10.8 g/dL (12.0-15.5); LYMPH # 2.4 x10^3/uL (1.0-4.8); LYMPH % 44 % (24-48); MEAN CORPUSCULAR HEMOGLOBIN 26 pg (25-35); MEAN CORPUSCULAR HGB CONC 33 g/dL (31-37); MEAN CORPUSCULAR VOLUME 80 fL (79-100); MONO # 0.6 x10^3/uL (0.0-1.1); MONO % 11 % (0-9); NEUT # 2.3 x10^3uL (1.8-7.7); NEUT % 42 % (31-73); PLATELET COUNT 508 x10^3/uL (140-400); RED BLOOD COUNT 4.11 x10^6/uL (3.50-5.40); RED CELL DISTRIBUTION WIDTH 17.3 % (11.5-14.5); WHITE BLOOD COUNT 5.4 x10^3/uL (4.0-11.0)
--- NOTE | 2018-10-08 16:38 | PHYS DOC ---
Past Medical History Past Medical History: Hypertension Past Surgical History: Cholecystectomy, Hysterectomy, Knee Replacement Additional Past Surgical Histo: R/L KNEE Alcohol Use: None Drug Use: None Adult General Chief Complaint Chief Complaint: DIZZY/LIGHT HEADED HPI HPI Patient is a 58 year old 58-year-old female with history of hypertension on amlodipine presenting to the ED today complaining of 5 out of 10 throbbing frontal headache with dizziness especially when laying down and sensation of the room spinning that began yesterday evening. Patient states her blood pressures have also been running high since yesterday. Patient denies any fever coughing or congestion. Denies any chest pain or shortness of breath. PCP Dr. Stephanie Khan's Review of Systems Review of Systems Constitutional: Denies fever or chills [] Eyes: Denies change in visual acuity, redness, or eye pain [] HENT: Denies nasal congestion or sore throat [] Respiratory: Denies cough or shortness of breath [] Cardiovascular: Reports high blood pressure GI: Denies abdominal pain, nausea, vomiting, bloody stools or diarrhea [] : Denies dysuria or hematuria [] Musculoskeletal: Denies back pain or joint pain [] Integument: Denies rash or skin lesions [] Neurologic: Reports headache and dizziness, denies focal weakness or sensory changes [] All other systems were reviewed and found to be within normal limits, except as documented in this note. Current Medications Current Medications Current Medications Medications (Trade) Dose Ordered Sig/Viv Start Time Stop Time Status Last Admin Dose Admin Acetaminophen (Tylenol) 500 mg 1X ONCE 10/08/18 17:00 10/08/18 17:01 DC 10/08/18 16:36 500 MG Clonidine HCl (Catapres) 0.1 mg 1X ONCE 10/08/18 18:30 10/08/18 18:31 DC 10/08/18 18:52 0.1 MG Meclizine HCl (Antivert) 12.5 mg 1X ONCE 10/08/18 17:00 10/08/18 17:01 DC 10/08/18 16:37 12.5 MG Sodium Chloride 1,000 ml @ 1,000 mls/hr 1X ONCE 10/08/18 17:00 10/08/18 17:59 DC 10/08/18 16:37 1,000 MLS/HR Allergies Allergies Allergies Coded Allergies Type Severity Reaction Last Updated Verified No Known Drug Allergies 09/17/18 No Physical Exam Physical Exam Constitutional: Well developed, well nourished, no acute distress, non-toxic appearance. [] HENT: Normocephalic, atraumatic, bilateral external ears normal, oropharynx moist, no oral exudates, nose normal. [] Eyes: PERRLA, EOMI, conjunctiva normal, no discharge. [] Neck: Normal range of motion, no tenderness, supple, no stridor. [] Cardiovascular:Heart rate regular rhythm, no murmur [] Lungs & Thorax: Bilateral breath sounds clear to auscultation [] Abdomen: Bowel sounds normal, soft, no tenderness, no masses, no pulsatile masses. [] Skin: Warm, dry, no erythema, no rash. [] Back: No tenderness, no CVA tenderness. [] Extremities: No tenderness, no cyanosis, no clubbing, ROM intact, no edema. [] Neurologic: Alert and oriented X 3, normal motor function, normal sensory function, no focal deficits noted. Cranial nerves II-XII intact Psychologic: Affect normal, judgement normal, mood normal. [] Current Patient Data Vital Signs Vital Signs Date Time Temp Pulse Resp B/P (MAP) Pulse Ox O2 Delivery O2 Flow Rate FiO2 10/08/18 19:47 63 17 96 10/08/18 18:52 193/78 10/08/18 16:09 98.0 Room Air 98.0 Lab Values Laboratory Tests Test 10/08/18 16:20 10/08/18 17:15 White Blood Count 5.4 x10^3/uL (4.0-11.0) Red Blood Count 4.11 x10^6/uL (3.50-5.40) Hemoglobin 10.8 g/dL (12.0-15.5) L Hematocrit 33.1 % (36.0-47.0) L Mean Corpuscular Volume 80 fL (79-100) Mean Corpuscular Hemoglobin 26 pg (25-35) Mean Corpuscular Hemoglobin Concent 33 g/dL (31-37) Red Cell Distribution Width 17.3 % (11.5-14.5) H Platelet Count 508 x10^3/uL (140-400) H Neutrophils (%) (Auto) 42 % (31-73) Lymphocytes (%) (Auto) 44 % (24-48) Monocytes (%) (Auto) 11 % (0-9) H Eosinophils (%) (Auto) 3 % (0-3) Basophils (%) (Auto) 0 % (0-3) Neutrophils # (Auto) 2.3 x10^3uL (1.8-7.7) Lymphocytes # (Auto) 2.4 x10^3/uL (1.0-4.8) Monocytes # (Auto) 0.6 x10^3/uL (0.0-1.1) Eosinophils # (Auto) 0.2 x10^3/uL (0.0-0.7) Basophils # (Auto) 0.0 x10^3/uL (0.0-0.2) Sodium Level 141 mmol/L (136-145) Potassium Level 3.7 mmol/L (3.5-5.1) Chloride Level 104 mmol/L (98-107) Carbon Dioxide Level 27 mmol/L (21-32) Anion Gap 10 (6-14) Blood Urea Nitrogen 7 mg/dL (7-20) Creatinine 0.8 mg/dL (0.6-1.0) Estimated GFR (Cockcroft-Gault) 88.5 BUN/Creatinine Ratio 9 (6-20) Glucose Level 95 mg/dL (70-99) Calcium Level 9.3 mg/dL (8.5-10.1) Magnesium Level 2.1 mg/dL (1.8-2.4) Total Bilirubin 0.2 mg/dL (0.2-1.0) Aspartate Amino Transferase (AST) 15 U/L (15-37) Alanine Aminotransferase (ALT) 14 U/L (14-59) Alkaline Phosphatase 196 U/L (46-116) H Creatine Kinase 74 U/L (26-192) Creatine Kinase MB (Mass) 0.7 ng/mL (0.0-3.6) Creatine Kinase MB Relative Index % (0-4) Troponin I Quantitative < 0.017 ng/mL (0.000-0.055) BG-Kpu-R-Type Natriuretic Peptide 70 pg/mL (0-124) Total Protein 8.4 g/dL (6.4-8.2) H Albumin 3.2 g/dL (3.4-5.0) L Albumin/Globulin Ratio 0.6 (1.0-1.7) L Thyroid Stimulating Hormone (TSH) 1.581 uIU/mL (0.358-3.74) Urine Collection Type Void Urine Color Yellow Urine Clarity Cloudy Urine pH 6.0 Urine Specific [place] 1.020 Urine Protein Negative mg/dL (NEG-TRACE) Urine Glucose (UA) Negative mg/dL (NEG) Urine Ketones (Stick) Negative mg/dL (NEG) Urine Blood Trace (NEG) Urine Nitrite Negative (NEG) Urine Bilirubin Negative (NEG) Urine Urobilinogen Dipstick 1.0 mg/dL (0.2 mg/dL) Urine Leukocyte Esterase Small (NEG) Urine RBC Occ /HPF (0-2) Urine WBC 5-10 /HPF (0-4) Urine Squamous Epithelial Cells Occ /LPF Urine Bacteria Mod /HPF (0-FEW) Urine Opiates Screen Neg (NEG) Urine Methadone Screen Neg (NEG) Urine Barbiturates Neg (NEG) Urine Phencyclidine Screen Neg (NEG) Urine Amphetamine/Methamphetamine Neg (NEG) Urine Benzodiazepines Screen Neg (NEG) Urine Cocaine Screen Neg (NEG) Urine Cannabinoids Screen Neg (NEG) Urine Ethyl Alcohol Neg (NEG) Laboratory Tests 10/08/18 16:20 Laboratory Tests 10/08/18 16:20 EKG EKG 16:[address] Valenzuela sinus rhythm HR 76 no STEMI[] Radiology/Procedures Radiology/Procedures []PROCEDURE: PORTABLE CHEST 1V AP chest x-ray COMPARISON: Chest x-ray July 08, 2018. HISTORY: Dizziness. FINDINGS: Heart size normal. Mediastinal silhouette is normal. No pneumothorax, pulmonary opacities or pleural effusions. Bones are unremarkable. IMPRESSION: No acute process. Electronically signed by: Joceline Syed MD (10/08/2018 5:30 PM) [facility] DICTATED and SIGNED BY: JOCELINE SYED MD DATE: 10/08/18 0268 PROCEDURE: CT HEAD WO CONTRAST CT HEAD INDICATION: Dizziness COMPARISON: 11/06/2016 Exposure: One or more of the following individualized dose reduction techniques were utilized for this examination: 1. Automated exposure control 2. Adjustment of the mA and/or kV according to patient size 3. Use of iterative reconstruction technique TECHNIQUE: 5 mm contiguous axial images were obtained from the skull base to the vertex in both bone and soft tissue algorithm. FINDINGS: Mild bilateral periventricular white matter hypodensities likely chronic small ischemic disease. No evidence of acute intracranial hemorrhage. No extra-axial fluid collections. No mass effect or midline shift. Ventricular size is appropriate. Basal cisterns are patent. No fractures identified.Yates-white differentiation is preserved.Globes and orbits are within normal limits. Paranasal sinuses and mastoid air cells are clear. IMPRESSION: No acute intracranial findings. Electronically signed by: Floyd Machado MD (10/08/2018 5:00 PM) [facility] DICTATED and SIGNED BY: FLOYD MACHADO MD DATE: 10/08/18 1700 Course & Med Decision Making Course & Med Decision Making Pertinent Labs and Imaging studies reviewed. (See chart for details) This is a 58-year-old male patient presenting to the ED today with headache, dizziness and high blood pressure since last night. Has history of hypertension. She is currently on lisinopril. EKG is negative, troponin is normal, CBC-no acute findings, CMP no acute findings including normal creatinine and BUN. Urine analysis is noted for small amount of leukocytes with WBC-d/c on cephalaxin. Vitals on arrival to the ED temperature 98.0 heart rate 75 blood pressure 196/88, O2 sats 97% on room air. CT of the head is negative for any acute findings, chest x-ray is negative. I spoke to Dr. Devries. Informed him already ordered clonidine for patient as well as meclizine, he requested we check the blood pressure if it starts going down patient can be discharged to home and she needs to follow-up with her own PCP. BP right now 2012 184/72 will d/c to home f/u with Dr. Mohan in 1-2 days. Dragon Disclaimer Dragon Disclaimer This electronic medical record was generated, in whole or in part, using a voice recognition dictation system. Departure Departure Impression: Primary Impression: Hypertensive urgency Additional Impressions: Headache Dizziness UTI (urinary tract infection) Disposition: HOME, SELF-CARE Condition: STABLE Referrals: STEPHANIE MOHAN MD (PCP) follow up in 3 days. Patient Instructions: Hypertension, Urinary Tract Infection Additional Instructions: You were evaluated in the emergency room for high blood pressure with headache and dizziness. You can take Tylenol as needed for your headache or ibuprofen. Please follow-up with your PCP in the next 1-2 days. Please come back to the ED at any point symptoms worsen. Continue taking your blood pressure medicines. You have a UTI please complete your antibiotics. Take Meclizine for dizziness Scripts Meclizine Hcl (MECLIZINE HCL) 12.5 Mg Tablet 1 TAB PO TID PRN for DIZZINESS, #20 TAB 3 Refills Prov: EARL FIERRO APRN 10/08/18 Cephalexin (CEPHALEXIN) 500 Mg Capsule 1 CAP PO BID, #14 CAP Prov: EARL FIERRO APRN 10/08/18 Problem Qualifiers Additional Impressions: Headache Headache type: unspecified Headache chronicity pattern: unspecified pattern Intractability: not intractable Qualified Codes: R51 - Headache UTI (urinary tract infection) Urinary tract infection type: site unspecified Hematuria presence: without hematuria Qualified Codes: N39.0 - Urinary tract infection, site not specified EARL FIERRO APRN Oct 08, 2018 16:38
[2018-10-08 16:42] LABS: CALCIUM 9.3 mg/dL (8.5-10.1); CREATININE 0.8 mg/dL (0.6-1.0); GFR 88.5; POTASSIUM 3.7 mmol/L (3.5-5.1)
[2018-10-08 16:48] LABS: ALBUMIN 3.2 g/dL (3.4-5.0); ALBUMIN/GLOBULIN RATIO 0.6 (1.0-1.7); MAGNESIUM 2.1 mg/dL (1.8-2.4); TOTAL BILIRUBIN 0.2 mg/dL (0.2-1.0); TOTAL PROTEIN 8.4 g/dL (6.4-8.2)
[2018-10-08 16:58] LABS: CREATINE KINASE 74 U/L (26-192)
[2018-10-08] MEDS ORDERED: ACETAMINOPHEN 500 MG TABLET PO ONE (17:00)
[2018-10-08] MEDS ORDERED: MECLIZINE HCL 12.5 MG TABLET. PO ONE (17:00)
[2018-10-08] MEDS ORDERED: IV NORMAL SALINE 1000ML BAG 1,000 ML IV ONE (17:00)
--- NOTE | 2018-10-08 17:03 | RAD ---
CT HEAD INDICATION: Dizziness COMPARISON: 11/06/2016 Exposure: One or more of the following individualized dose reduction techniques were utilized for this examination: 1. Automated exposure control 2. Adjustment of the mA and/or kV according to patient size 3. Use of iterative reconstruction technique TECHNIQUE: 5 mm contiguous axial images were obtained from the skull base to the vertex in both bone and soft tissue algorithm. FINDINGS: Mild bilateral periventricular white matter hypodensities likely chronic small ischemic disease. No evidence of acute intracranial hemorrhage. No extra-axial fluid collections. No mass effect or midline shift. Ventricular size is appropriate. Basal cisterns are patent. No fractures identified.Yates-white differentiation is preserved.Globes and orbits are within normal limits. Paranasal sinuses and mastoid air cells are clear. IMPRESSION: No acute intracranial findings. Electronically signed by: Floyd Machado MD (10/08/2018 5:00 PM) [facility]
[2018-10-08 17:24] LABS: BILIRUBIN,URINE NEGATIVE (NEG); CLARITY,URINE CLOUDY; COLOR,URINE YELLOW; NITRITE,URINE NEGATIVE (NEG); PROTEIN,URINE NEGATIVE (NEG-TRACE)
[2018-10-08 17:30] LABS: BACTERIA,URINE MOD /HPF (0-FEW); RBC,URINE OCC /HPF (0-2); SQUAMOUS EPITHELIAL CELL,UR OCC /LPF
[2018-10-08 17:31] LABS: BARBITURATES NEG (NEG); BENZODIAZEPINES NEG (NEG); CANNABINOIDS NEG (NEG); COCAINE NEG (NEG); METHADONE NEG (NEG); OPIATES NEG (NEG); PHENCYCLIDINE NEG (NEG)
[2018-10-08 17:32] LABS: AMPHETAMINE/METHAMPHETAMINE NEG (NEG)
--- NOTE | 2018-10-08 17:32 | RAD ---
AP chest x-ray COMPARISON: Chest x-ray July 08, 2018. HISTORY: Dizziness. FINDINGS: Heart size normal. Mediastinal silhouette is normal. No pneumothorax, pulmonary opacities or pleural effusions. Bones are unremarkable. IMPRESSION: No acute process. Electronically signed by: Duc Syed MD (10/08/2018 5:30 PM) [facility]
[2018-10-08] MEDS ORDERED: cloNIDine HCL 0.1 MG TABLET PO ONE (18:30)
[2018-10-08 19:47] VITALS: BP 184/72
[2018-10-08] MEDS ORDERED: CEPH500C PO (20:17)
[2018-10-08] MEDS ORDERED: MECL12.52 PO (20:17)
--- NOTE | 2018-10-09 07:19 | EKG ---
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
== END 2018-10-08 20:20 | disposition home or self-care (01) ==
LOC: ER 15:59
DX: R51 Headache (principal); R42 Dizziness and giddiness; I16.0 Hypertensive urgency; N39.0 Urinary tract infection, site not specified; I10 Essential (primary) hypertension; Z90.710 Acquired absence of both cervix and uterus; Z90.49 Acquired absence of other specified parts of digestive tract
CPT/HCPCS: 36415; 70450; 71045; 80053; 80307; 81001; 82553; 83735; 83880; 84443; 84484; 85025; 93005; 96360; 99285; J7030; J8597

== ENCOUNTER 2019-05-12 22:58 | Inpatient (IN) | payer OTHER ==
[~2019-05-12] VITALS: Ht 154.9 cm; Wt 82.1 kg
[~2019-05-12 22:58] MED LIST changes: +CEPH500C PO; +MECL12.573 PO
--- NOTE | 2019-05-12 23:21 | RAD ---
EXAM: CT Head without IV contrast CLINICAL HISTORY: COMPARISON: None. TECHNIQUE: Routine CT of the head without contrast. Soft tissues and bone windows were reviewed. PQRS compliance statement - One or more of the following individualized dose reduction techniques were utilized for this study: 1. Automated exposure control 2. Adjustment of the mA and/or kV according to patient size 3. Use of iterative reconstruction technique FINDINGS: There is no evidence of hemorrhage, mass or extra-axial fluid collection. Hdz-white differentiation is maintained with no evidence of edema. There is no mass effect or shift of the intracranial structures. The ventricles, basilar cisterns and cortical sulci are normal in size and configuration for the patients stated age. The cerebellum and brainstem are unremarkable. The calvarium demonstrates no evidence of fracture or focal lesion. There is normal aeration of the visualized paranasal sinuses and mastoid air cells. The visualized portions of the orbits are normal. IMPRESSION: No evidence for acute intracranial hemorrhage Findings discussed with TEQUILA TURNER at 05/12/2019 11:17 PM. FOR INTERNAL CODING PURPOSES RESULT CODE: (C) Electronically signed by: Ramez Garza MD (05/12/2019 11:18 PM) [facility]
[2019-05-12 23:28] LABS: BASO # 0.1 x10^3/uL (0.0-0.2); BASO % 1 % (0-3); EOS # 0.1 x10^3/uL (0.0-0.7); EOS % 1 % (0-3); HEMATOCRIT 43.3 % (36.0-47.0); HEMOGLOBIN 13.9 g/dL (12.0-15.5); LYMPH % 23 % (24-48); MEAN CORPUSCULAR HEMOGLOBIN 27 pg (25-35); MEAN CORPUSCULAR HGB CONC 32 g/dL (31-37); MEAN CORPUSCULAR VOLUME 83 fL (79-100); MONO # 0.9 x10^3/uL (0.0-1.1); MONO % 10 % (0-9); NEUT # 5.6 x10^3/uL (1.8-7.7); NEUT % 64 % (31-73); PLATELET COUNT 333 x10^3/uL (140-400); RED BLOOD COUNT 5.23 x10^6/uL (3.50-5.40); RED CELL DISTRIBUTION WIDTH 16.8 % (11.5-14.5); WHITE BLOOD COUNT 8.8 x10^3/uL (4.0-11.0)
--- NOTE | 2019-05-12 23:32 | RAD ---
EXAM: AP View of the chest DATE: 05/12/2019 11:14 PM INDICATION: Shortness of air, code stroke COMPARISON: No Prior FINDINGS: The heart is not enlarged. Mediastinal and hilar contours are normal. Prominent soft soft tissues overlying the lung bases limits evaluation. Within these constraints, the lungs are clear. No pleural effusion or pneumothorax. IMPRESSION: 1. No radiographic evidence for acute cardiopulmonary process. Electronically signed by: Ramez Garza MD (05/12/2019 11:29 PM) [facility]
[2019-05-12 23:37] LABS: CALCIUM 9.3 mg/dL (8.5-10.1); CREATININE 0.9 mg/dL (0.6-1.0); GFR 77.3; POTASSIUM 3.9 mmol/L (3.5-5.1); PROTHROMBIN TIME PATIENT 13.2 SEC (11.7-14.0)
[2019-05-12 23:44] LABS: ALBUMIN 3.8 g/dL (3.4-5.0); ALBUMIN/GLOBULIN RATIO 0.8 (1.0-1.7); MAGNESIUM 1.9 mg/dL (1.8-2.4); TOTAL BILIRUBIN 0.1 mg/dL (0.2-1.0); TOTAL PROTEIN 8.5 g/dL (6.4-8.2)
[2019-05-13] VITALS (7 sets, daily range): BP systolic 154–182; BP diastolic 49–70
--- NOTE | 2019-05-13 06:55 | PHYS DOC ---
Past Medical History Past Medical History: Hypertension Past Surgical History: Cholecystectomy, Hysterectomy, Knee Replacement Additional Past Surgical Histo: R/L KNEE Alcohol Use: Rarely Drug Use: None Adult General Chief Complaint Chief Complaint: NEURO SYMPTOMS/DEFICITS HPI HPI Patient is a 58 year old -H[place]ian Haitian female who is an employee at [employer] who presents with acute neurologic changes. Patient reports dizziness, expressive and ataxia. Symptoms began 45 minutes prior to ED arrival and resolved on route to the ED. Stroke alert activation on ED arrival. Of,[] Review of Systems Review of Systems Review of symptoms as per history of present illness. All other review symptoms are negative. All other systems were reviewed and found to be within normal limits, except as documented in this note. Allergies Allergies Allergies Coded Allergies Type Severity Reaction Last Updated Verified No Known Drug Allergies 09/17/18 No Physical Exam Physical Exam Constitutional: Well developed, well nourished, no acute distress, non-toxic appearance. [] HENT: Normocephalic, atraumatic, bilateral external ears normal, oropharynx moist, nose normal. [] Eyes: PERRLA, EOMI, conjunctiva normal, no discharge. [] Neck: Normal range of motion, no tenderness. [] Cardiovascular:Heart rate regular rhythm, no murmur [] Lungs & Thorax: Bilateral breath sounds clear to auscultation [] Abdomen: Bowel sounds normal, soft, no tenderness. [] Skin: Warm, dry, no erythema, no rash. [] Back: No tenderness, no CVA tenderness. [] Extremities: No tenderness, no edema. [] Neurologic: Alert and oriented X 3, CN 2-12 grossly intact, normal motor function, normal sensory function, no focal deficits noted. NIH SS of 0 per nurse stroke assessment[] Psychologic: Affect normal, judgement normal, mood normal. [] Current Patient Data Vital Signs Vital Signs Date Time Temp Pulse Resp B/P (MAP) Pulse Ox O2 Delivery O2 Flow Rate FiO2 05/13/19 00:26 63 16 98 05/12/19 22:58 97.5 176/59 (98) Room Air 97.5 Lab Values Laboratory Tests Test 05/12/19 23:21 White Blood Count 8.8 x10^3/uL (4.0-11.0) Red Blood Count 5.23 x10^6/uL (3.50-5.40) Hemoglobin 13.9 g/dL (12.0-15.5) Hematocrit 43.3 % (36.0-47.0) Mean Corpuscular Volume 83 fL (79-100) Mean Corpuscular Hemoglobin 27 pg (25-35) Mean Corpuscular Hemoglobin Concent 32 g/dL (31-37) Red Cell Distribution Width 16.8 % (11.5-14.5) H Platelet Count 333 x10^3/uL (140-400) Neutrophils (%) (Auto) 64 % (31-73) Lymphocytes (%) (Auto) 23 % (24-48) L Monocytes (%) (Auto) 10 % (0-9) H Eosinophils (%) (Auto) 1 % (0-3) Basophils (%) (Auto) 1 % (0-3) Neutrophils # (Auto) 5.6 x10^3/uL (1.8-7.7) Lymphocytes # (Auto) 2.0 x10^3/uL (1.0-4.8) Monocytes # (Auto) 0.9 x10^3/uL (0.0-1.1) Eosinophils # (Auto) 0.1 x10^3/uL (0.0-0.7) Basophils # (Auto) 0.1 x10^3/uL (0.0-0.2) Prothrombin Time 13.2 SEC (11.7-14.0) Prothrombin Time INR 1.0 (0.8-1.1) Activated Partial Thromboplast Time 29 SEC (24-38) Sodium Level 140 mmol/L (136-145) Potassium Level 3.9 mmol/L (3.5-5.1) Chloride Level 103 mmol/L (98-107) Carbon Dioxide Level 26 mmol/L (21-32) Anion Gap 11 (6-14) Blood Urea Nitrogen 15 mg/dL (7-20) Creatinine 0.9 mg/dL (0.6-1.0) Estimated GFR (Cockcroft-Gault) 77.3 BUN/Creatinine Ratio 17 (6-20) Glucose Level 101 mg/dL (70-99) H Calcium Level 9.3 mg/dL (8.5-10.1) Magnesium Level 1.9 mg/dL (1.8-2.4) Total Bilirubin 0.1 mg/dL (0.2-1.0) L Aspartate Amino Transferase (AST) 22 U/L (15-37) Alanine Aminotransferase (ALT) 14 U/L (14-59) Alkaline Phosphatase 104 U/L (46-116) Total Protein 8.5 g/dL (6.4-8.2) H Albumin 3.8 g/dL (3.4-5.0) Albumin/Globulin Ratio 0.8 (1.0-1.7) L Thyroid Stimulating Hormone (TSH) 2.520 uIU/mL (0.358-3.74) Ethyl Alcohol Level < 10 mg/dL (0-10) Laboratory Tests 05/12/19 23:21 Laboratory Tests 05/12/19 23:21 EKG EKG [EKG: reviewed] Radiology/Procedures Radiology/Procedures [CT head: NAD] Course & Med Decision Making Course & Med Decision Making Pertinent Labs and Imaging studies reviewed. (See chart for details) [[facility] SS of O. ASA given. Will admit. ] Dragon Disclaimer Dragon Disclaimer This electronic medical record was generated, in whole or in part, using a voice recognition dictation system. Departure Departure Impression: Primary Impression: CVA (cerebral vascular accident) Disposition: ADMITTED INPATIENT Condition: STABLE Referrals: NO PCP (PCP) TEQUILA TURNER DO May 13, 2019 06:55
--- NOTE | 2019-05-13 07:03 | EKG ---
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
[2019-05-13 09:43] LABS: CHOLESTEROL/HDL RATIO 4.4
--- NOTE | 2019-05-13 10:14 | RAD ---
EXAM: Carotid Doppler sonogram. HISTORY: Unsteady gait. Slurred speech. Blurred vision. TECHNIQUE: Yates scale and color Doppler sonographic evaluation of the neck with spectral waveform analysis was performed and static images are submitted for review. FINDINGS: There is mild atherosclerotic plaque within the right carotid bifurcation and moderate atherosclerotic plaque within the left carotid bifurcation. The peak systolic velocity within the right common carotid artery is 123 cm/sec. The peak systolic velocity within the right internal carotid artery is 90 cm/sec and the end diastolic velocity within the right internal carotid artery is 22 cm/sec. The right ICA/CCA ratio is 0.84. The peak systolic velocity within the left common carotid artery is 94 cm/sec. The peak systolic velocity within the left internal carotid artery is 117 cm/sec and the end diastolic velocity within the left internal carotid artery is 29 cm/sec. The left ICA/CCA ratio is 1.34. There is normal antegrade flow within both vertebral arteries. IMPRESSION: No Doppler evidence of hemodynamically significant stenosis. PQRS Compliance Statement - Stenosis calculations for CT, MR and conventional angiography are based upon measurement of the distal ICA diameter in accordance with the NASCET methodology. Stenosis calculations for carotid ultrasound studies are derived from validated velocity criteria which are known to correlate with the NASCET methodology. Electronically signed by: Yuliana Kinsey MD (05/13/2019 10:11 AM) [facility]
[2019-05-13] MEDS ORDERED: ACETAMINOPHEN 500 MG TABLET PO PRN (11:30)
[2019-05-13] MEDS ORDERED: hydrALAZINE 20 MG/ML VIAL. IVP PRN (11:30)
[2019-05-13] MEDS ORDERED: MECLIZINE HCL 12.5 MG TABLET. PO PRN (11:30)
[2019-05-13] MEDS ORDERED: ONDANSETRON PF 4 MG/2 ML VIAL. IVP PRN (11:30)
[2019-05-13] MEDS ORDERED: ACETAMINOPHEN/CODEINE 300/30MG TABLET. PO PRN (11:30)
[2019-05-13] MEDS ORDERED: oxyCODONE/APAP 7.5/325 1 TAB TABLET PO PRN (11:30)
[2019-05-13] MEDS: amLODIPine BESYLATE 10 MG TABLET PO SCH (12:35)
--- NOTE | 2019-05-13 13:18 | NUR ---
SS following for discharge planning. SS reviewed pt chart. Pt is from home and is currently on room air. PT/OT ordered. SS will continue to follow for discharge planning.
[2019-05-13 13:35] LABS: BARBITURATES NEG (NEG); BENZODIAZEPINES NEG (NEG); CANNABINOIDS NEG (NEG); COCAINE NEG (NEG); METHADONE NEG (NEG); OPIATES NEG (NEG); PHENCYCLIDINE NEG (NEG)
[2019-05-13 13:36] LABS: AMPHETAMINE/METHAMPHETAMINE NEG (NEG)
--- NOTE | 2019-05-13 15:10 | RAD ---
MRI Brain without contrast History: Left-sided facial drooping, slurred speech starting 05/12/2019 Technique: Multiplanar, multisequential noncontrast MR imaging was performed of the brain. Comparison: There is no previous MRI brain exam available, correlation made with head CT May 12, 2019 Findings: There is restricted diffusion centered in the left caudate nucleus up to about 1 cm transverse by about 3 cm AP, somewhat hypointense on the ADC map. There is subtle associated T2 and FLAIR hypertense signal. There is also some subtle diffusion signal abnormality of the left lentiform nucleus, also hypointense on ADC map, measures about 0.8 cm transverse by about 1.4 cm AP. There is no midline shift. Ventricular size is within normal limits. There is other multifocal [id number] T2 and FLAIR hyperintense signal abnormality of the supratentorial parenchyma bilaterally. Some foci have a perpendicular orientation relative to lateral ventricles images such as of bilateral centrum semiovale. There are a couple of small old lacunar infarcts of the left basal ganglia. There is focus of decreased signal sequences of the right cerebellum likely sequela of hemosiderin deposition, not associated with significant calcification on CT. There is preservation of the major arterial intracranial flow voids at the skull base. Paranasal sinuses and mastoid air cells are overall aerated. Cerebellar tonsils are normal in location. There is nonspecific mild heterogeneity of the marrow of the nonexpanded clivus. There is no abnormality of pineal gland or pituitary gland. Impression: 1. There are foci of restricted diffusion of the left caudate nucleus and lentiform nucleus, evidence of recent acute or early subacute infarcts. 2. There is other multifocal T2 and FLAIR hyperintense signal abnormality of the supratentorial parenchyma bilaterally, nonspecific findings which may be due to chronic microvascular ischemic disease especially if risk factors such as hypertension or diabetes and also given the presence of recent infarcts although sequela of an inflammatory demyelinating disease would be difficult to exclude based on imaging features given the foci which have a perpendicular orientation relative to the lateral ventricles. 3. Focus of signal change of the right cerebellum is likely sequela of previous hemorrhage. Critcal results were discussed with patient's nurse Natalie at 05/13/2019 3:06 PM, to inform doctor of findings. Electronically signed by: Joe Skaggs MD (05/13/2019 3:07 PM) [facility]
[2019-05-13] MEDS: ASPIRIN 325 MG TABLET PO SCH (15:47)
--- NOTE | 2019-05-13 16:03 | PDOC1 ---
History and Physical Date of Admission Date of Admission DATE: 05/13/19 TIME: 15:58 Identification/Chief Complaint Chief Complaint bumping into gaviria, slurred speech lasted 10 mins Source Source: Caregiver, Chart review, Patient History of Present Illness History of Present Illness 58 AA female, works at [employer] when her co workers noticed her bumping into gaviria, transient slurred speech, and for a few mins she could not write properly, MRI shows: Impression: 1. There are foci of restricted diffusion of the left caudate nucleus and lentiform nucleus, evidence of recent acute or early subacute infarcts. 2. There is other multifocal T2 and FLAIR hyperintense signal abnormality of the supratentorial parenchyma bilaterally, nonspecific findings which may be due to chronic microvascular ischemic disease especially if risk factors such as hypertension or diabetes and also given the presence of recent infarcts although sequela of an inflammatory demyelinating disease would be difficult to exclude based on imaging features given the foci which have a perpendicular orientation relative to the lateral ventricles. 3. Focus of signal change of the right cerebellum is likely sequela of previous hemorrhage. CT head, CXR, carotid neg.Echo bubble pending Was not on asa at home, hx of gait problesm in past, UDS neg etoh SOme small cerebellar hemorrhage maybe in the past NOn smoker, non drinker BP was high on admit She is back to her baseline now and on ER arrival NIH 0 Past Medical History Cardiovascular: No pertinent hx, HTN Pulmonary: No pertinent hx GI: No pertinent hx Heme/Onc: No pertinent hx Hepatobiliary: No pertinent hx Psych: No pertinent hx Rheumatologic: No pertinent hx Infectious disease: No pertinent hx Past Surgical History Past Surgical History: Hysterectomy, Other Family History Family History: Other Family History: Parent Social History Smoke: No ALCOHOL: none Drugs: None Current Medications Current Medications Current Medications Hydralazine HCl (Apresoline Inj) 10 mg PRN Q4HRS PRN IVP ELEVATED BP, SEE COMMENTS; Start 05/13/19 at 11:30 Acetaminophen (Tylenol) 500 mg PRN Q6HRS PRN PO MILD PAIN / TEMP; Start 05/13/19 at 11:30 Acetaminophen/ Codeine Phosphate (Tylenol #3) 1 tab PRN Q6HRS PRN PO MODERATE PAIN; Start 05/13/19 at 11:30 Ondansetron HCl (Zofran) 4 mg PRN Q6HRS PRN IVP NAUSEA/VOMITING; Start 05/13/19 at 11:30 Amlodipine Besylate (Norvasc) 10 mg DAILY PO Last administered on 05/13/19at 12:35; Start 05/13/19 at 11:45 Meclizine HCl (Antivert) 12.5 mg PRN TID PRN PO DIZZINESS; Start 05/13/19 at 11:30 Oxycodone/ Acetaminophen (Percocet 7.5/ 325) 1 tab PRN Q4HRS PRN PO SEVERE PAIN; Start 05/13/19 at 11:30 Aspirin (Yvette Aspirin) 325 mg DAILYWBKFT PO Last administered on 05/13/19at 15:47; Start 05/13/19 at 14:00 Simvastatin (Zocor) 10 mg QHS PO ; Start 05/13/19 at 21:00 Active Scripts Active Meclizine Hcl 12.5 Mg Tablet 1 Tab PO TID PRN Cephalexin 500 Mg Capsule 1 Cap PO BID Percocet 7.5-325 Mg Tablet (Oxycodone/Acetaminophen) 1 Each Tablet 1 Tab PO PRN Q4HRS PRN Amlodipine Besylate 10 Mg Tablet 10 Mg PO DAILY Allergies Allergies: Coded Allergies: No Known Drug Allergies (Unverified , 09/17/18) ROS Review of System neg 14 pt reviewed her Physical Exam General: Alert, Oriented X3, Cooperative, No acute distress HEENT: Atraumatic, PERRLA, EOMI Lungs: Clear to auscultation, Normal air movement Heart: S1S2, RRR, no thrills, no rubs, no gallops, no murmurs Cardiovascular: S1, S2 Breasts: Normal, Rt breast nml w/o mass, Lt breast nml w/o mass, Nipples normal Abdomen: Normal bowel sounds, Soft, No tenderness, No hepatosplenomegaly, No masses Rectal Exam: not examined PELVIC: Nml ext genitalia Extremities: No clubbing, No cyanosis, No edema, Normal pulses, No tenderness/swelling Skin: No rashes, No breakdown, No significant lesion Neuro: Normal gait, Normal speech, Strength at 5/5 X4 ext, Normal tone, Sensation intact, Cranial nerves 3-12 NL, Reflexes 2+ Psych/Mental Status: Mental status NL, Mood NL Vitals Vitals Vital Signs Date Time Temp Pulse Resp B/P (MAP) Pulse Ox O2 Delivery O2 Flow Rate FiO2 05/13/19 12:35 68 169/63 05/13/19 11:15 97.6 18 96 Room Air 97.6 Labs Labs Laboratory Tests Test 05/12/19 23:21 05/13/19 09:12 05/13/19 13:20 White Blood Count 8.8 x10^3/uL (4.0-11.0) Red Blood Count 5.23 x10^6/uL (3.50-5.40) Hemoglobin 13.9 g/dL (12.0-15.5) Hematocrit 43.3 % (36.0-47.0) Mean Corpuscular Volume 83 fL (79-100) Mean Corpuscular Hemoglobin 27 pg (25-35) Mean Corpuscular Hemoglobin Concent 32 g/dL (31-37) Red Cell Distribution Width 16.8 % (11.5-14.5) Platelet Count 333 x10^3/uL (140-400) Neutrophils (%) (Auto) 64 % (31-73) Lymphocytes (%) (Auto) 23 % (24-48) Monocytes (%) (Auto) 10 % (0-9) Eosinophils (%) (Auto) 1 % (0-3) Basophils (%) (Auto) 1 % (0-3) Neutrophils # (Auto) 5.6 x10^3/uL (1.8-7.7) Lymphocytes # (Auto) 2.0 x10^3/uL (1.0-4.8) Monocytes # (Auto) 0.9 x10^3/uL (0.0-1.1) Eosinophils # (Auto) 0.1 x10^3/uL (0.0-0.7) Basophils # (Auto) 0.1 x10^3/uL (0.0-0.2) Prothrombin Time 13.2 SEC (11.7-14.0) Prothromb Time International Ratio 1.0 (0.8-1.1) Activated Partial Thromboplast Time 29 SEC (24-38) Sodium Level 140 mmol/L (136-145) Potassium Level 3.9 mmol/L (3.5-5.1) Chloride Level 103 mmol/L (98-107) Carbon Dioxide Level 26 mmol/L (21-32) Anion Gap 11 (6-14) Blood Urea Nitrogen 15 mg/dL (7-20) Creatinine 0.9 mg/dL (0.6-1.0) Estimated GFR (Cockcroft-Gault) 77.3 BUN/Creatinine Ratio 17 (6-20) Glucose Level 101 mg/dL (70-99) Calcium Level 9.3 mg/dL (8.5-10.1) Magnesium Level 1.9 mg/dL (1.8-2.4) Total Bilirubin 0.1 mg/dL (0.2-1.0) Aspartate Amino Transf (AST/SGOT) 22 U/L (15-37) Alanine Aminotransferase (ALT/SGPT) 14 U/L (14-59) Alkaline Phosphatase 104 U/L (46-116) Total Protein 8.5 g/dL (6.4-8.2) Albumin 3.8 g/dL (3.4-5.0) Albumin/Globulin Ratio 0.8 (1.0-1.7) Thyroid Stimulating Hormone (TSH) 2.520 uIU/mL (0.358-3.74) Ethyl Alcohol Level < 10 mg/dL (0-10) Triglycerides Level 107 mg/dL (0-150) Cholesterol Level 146 mg/dL (0-200) LDL Cholesterol, Calculated 92 mg/dL (0-100) VLDL Cholesterol, Calculated 21 mg/dL (0-40) Non-HDL Cholesterol Calculated 113 mg/dL (0-129) HDL Cholesterol 33 mg/dL (40-60) Cholesterol/HDL Ratio 4.4 Urine Opiates Screen Neg (NEG) Urine Methadone Screen Neg (NEG) Urine Barbiturates Neg (NEG) Urine Phencyclidine Screen Neg (NEG) Urine Amphetamine/Methamphetamine Neg (NEG) Urine Benzodiazepines Screen Neg (NEG) Urine Cocaine Screen Neg (NEG) Urine Cannabinoids Screen Neg (NEG) Urine Ethyl Alcohol Neg (NEG) Laboratory Tests Test 05/12/19 23:21 05/13/19 09:12 05/13/19 13:20 White Blood Count 8.8 x10^3/uL (4.0-11.0) Red Blood Count 5.23 x10^6/uL (3.50-5.40) Hemoglobin 13.9 g/dL (12.0-15.5) Hematocrit 43.3 % (36.0-47.0) Mean Corpuscular Volume 83 fL (79-100) Mean Corpuscular Hemoglobin 27 pg (25-35) Mean Corpuscular Hemoglobin Concent 32 g/dL (31-37) Red Cell Distribution Width 16.8 % (11.5-14.5) Platelet Count 333 x10^3/uL (140-400) Neutrophils (%) (Auto) 64 % (31-73) Lymphocytes (%) (Auto) 23 % (24-48) Monocytes (%) (Auto) 10 % (0-9) Eosinophils (%) (Auto) 1 % (0-3) Basophils (%) (Auto) 1 % (0-3) Neutrophils # (Auto) 5.6 x10^3/uL (1.8-7.7) Lymphocytes # (Auto) 2.0 x10^3/uL (1.0-4.8) Monocytes # (Auto) 0.9 x10^3/uL (0.0-1.1) Eosinophils # (Auto) 0.1 x10^3/uL (0.0-0.7) Basophils # (Auto) 0.1 x10^3/uL (0.0-0.2) Prothrombin Time 13.2 SEC (11.7-14.0) Prothromb Time International Ratio 1.0 (0.8-1.1) Activated Partial Thromboplast Time 29 SEC (24-38) Sodium Level 140 mmol/L (136-145) Potassium Level 3.9 mmol/L (3.5-5.1) Chloride Level 103 mmol/L (98-107) Carbon Dioxide Level 26 mmol/L (21-32) Anion Gap 11 (6-14) Blood Urea Nitrogen 15 mg/dL (7-20) Creatinine 0.9 mg/dL (0.6-1.0) Estimated GFR (Cockcroft-Gault) 77.3 BUN/Creatinine Ratio 17 (6-20) Glucose Level 101 mg/dL (70-99) Calcium Level 9.3 mg/dL (8.5-10.1) Magnesium Level 1.9 mg/dL (1.8-2.4) Total Bilirubin 0.1 mg/dL (0.2-1.0) Aspartate Amino Transf (AST/SGOT) 22 U/L (15-37) Alanine Aminotransferase (ALT/SGPT) 14 U/L (14-59) Alkaline Phosphatase 104 U/L (46-116) Total Protein 8.5 g/dL (6.4-8.2) Albumin 3.8 g/dL (3.4-5.0) Albumin/Globulin Ratio 0.8 (1.0-1.7) Thyroid Stimulating Hormone (TSH) 2.520 uIU/mL (0.358-3.74) Ethyl Alcohol Level < 10 mg/dL (0-10) Triglycerides Level 107 mg/dL (0-150) Cholesterol Level 146 mg/dL (0-200) LDL Cholesterol, Calculated 92 mg/dL (0-100) VLDL Cholesterol, Calculated 21 mg/dL (0-40) Non-HDL Cholesterol Calculated 113 mg/dL (0-129) HDL Cholesterol 33 mg/dL (40-60) Cholesterol/HDL Ratio 4.4 Urine Opiates Screen Neg (NEG) Urine Methadone Screen Neg (NEG) Urine Barbiturates Neg (NEG) Urine Phencyclidine Screen Neg (NEG) Urine Amphetamine/Methamphetamine Neg (NEG) Urine Benzodiazepines Screen Neg (NEG) Urine Cocaine Screen Neg (NEG) Urine Cannabinoids Screen Neg (NEG) Urine Ethyl Alcohol Neg (NEG) VTE Prophylaxis Ordered VTE Prophylaxis Devices: Yes VTE Pharmacological Prophylaxi: Yes Assessment/Plan Assessment/Plan Acute to early subacute ischemic strokes, lacunar areas SMall maybe chronic cerebellar hemorrhage Accel HTN POA PLAN: Echo ASA 321 PT OT to add check lipids, statin Stroke protocol KEep on 6th floor dw her SHe will need excuse from work ((Place sun -) ANJELICA SHETH MD May 13, 2019 16:03
--- NOTE | 2019-05-13 18:02 | PDOC2 ---
NEUROLOGY CONSULT Date of Admission Date of Admission DATE: 05/13/19 TIME: 17:46 Reason for Consult Reason for Consult: IMPRESSION: Acute/subacute left caudate nuclear and lentiform nuclear infarct. Left side facial drooping for about 5 minutes on 05/12/19. Slurred speech for about 5 minutes on 05/12/19. HTN. Obesity. RECOMMENDATIONS/PLAN: ASA 325 mg daily. Zocor 10 mg HS. Control BP. Treat medical diseases. Brain MRI performed. Carotid A US + Doppler performed. FU Echo + Bubble study. Weight reduction. FU with PCP. FU with Neurology in 1-2 months. History of Present Illness This is a 58 AA female patient with history of HTN. Zaria working in [facility] on 05/12/2019, she suddenly had symptoms of left side of facial drooping and slurred speech. Her co workers noticed her bumping into gaviria, transient slurred speech, and for a few minutes and she could not write properly, she she was brought to the ER of [facility]. Her symptoms lasted for about 5 minutes then resolved on arrival and her NIH score was 0. Past Medical History Cardiovascular: No pertinent hx, HTN Pulmonary: No pertinent hx GI: No pertinent hx Heme/Onc: No pertinent hx Hepatobiliary: No pertinent hx Psych: No pertinent hx Rheumatologic: No pertinent hx Infectious disease: No pertinent hx Past Surgical History Cholecystectomy, Hysterectomy, Knee Replacement Family History Unknown. Social History Smoke: Denied. ALCOHOL: Denied. Drugs: Denied. ALLERGY: NKDA MEDICATIONS: Refer to [facility] REVIEW OF SYSTEMS: Constitutional: Obesity. Head: No traumatic brain or head injury. Skin: No edema, or rash. Ear: No infection. Eyes: No vision loss or color blindness. Nose: No bleeding or purulent discharges. Hearing: No hearing decrease. Neck: No injury. Breast: No history of cancer, masses,or discharges. Cardiac: HTN. Pulmonary: No COPD. GI: No GI ulcer, GI bleeding. Urinary/genital: UTI. Endocrinologic: Obesity. Skeletomuscular: No muscular atrophy. Neurological: see HP. Psychiatric: Denies drug use/abuse. Otherwise, not [id number] review of systems. PHYSICAL EXAMINATION: General appearance is in subacute distress. HEENT: Normocephalic and nontraumatic. Eyes, nose, ears, and throat are unremarkable. Neck is supple. No lymphadenopathy. No bruits are heard over the carotid artery. No crepitus. Cardiovascular: S1, S2, regular rate and rhythm. Pulmonary: Clear to auscultation bilaterally. Abdomen: Bowel sounds are positive. Abdomen is soft, nontender, and nondistended. Extremities: No rash, lesions, or edema. No restriction of range of motion NEUROLOGICAL EXAMINATION: Alert Oriented to time, place and person. PERRL. EOMI. CN: no focal findings. Muscle tone: within normal. Muscle strength: 5 DTR: 2 Plantar reflex: Flexor response bilaterally Gait: not examined in bed. Sensory exam: no abnormal findings. No cerebellar signs elicited. F-T-N test accurate. Current Medications Current Medications Current Medications Hydralazine HCl (Apresoline Inj) 10 mg PRN Q4HRS PRN IVP ELEVATED BP, SEE COMMENTS; Start 05/13/19 at 11:30 Acetaminophen (Tylenol) 500 mg PRN Q6HRS PRN PO MILD PAIN / TEMP; Start 05/13/19 at 11:30 Acetaminophen/ Codeine Phosphate (Tylenol #3) 1 tab PRN Q6HRS PRN PO MODERATE PAIN; Start 05/13/19 at 11:30 Ondansetron HCl (Zofran) 4 mg PRN Q6HRS PRN IVP NAUSEA/VOMITING; Start 05/13/19 at 11:30 Amlodipine Besylate (Norvasc) 10 mg DAILY PO Last administered on 05/13/19at 12:35; Start 05/13/19 at 11:45 Meclizine HCl (Antivert) 12.5 mg PRN TID PRN PO DIZZINESS; Start 05/13/19 at 11:30 Oxycodone/ Acetaminophen (Percocet 7.5/ 325) 1 tab PRN Q4HRS PRN PO SEVERE PAIN; Start 05/13/19 at 11:30 Aspirin (Yvette Aspirin) 325 mg DAILYWBKFT PO Last administered on 05/13/19at 15:47; Start 05/13/19 at 14:00 Simvastatin (Zocor) 10 mg QHS PO ; Start 05/13/19 at 21:00 Active Scripts Active Meclizine Hcl 12.5 Mg Tablet 1 Tab PO TID PRN Cephalexin 500 Mg Capsule 1 Cap PO BID Percocet 7.5-325 Mg Tablet (Oxycodone/Acetaminophen) 1 Each Tablet 1 Tab PO PRN Q4HRS PRN Amlodipine Besylate 10 Mg Tablet 10 Mg PO DAILY Allergies Allergies: Allergies Coded Allergies Type Severity Reaction Last Updated Verified No Known Drug Allergies 09/17/18 No ROS Review of System The patient denies any associated fevers, chills, headache, ear pain, rhinorrhea, sore throat, stiff neck, productive cough, chest pain, shortness of breath, back or flank pain, abdominal pain, nausea, vomiting, diarrhea, constipation, dysuria, rash, numbness, weakness, tingling, incontinence, di fficulty ambulating, or diaphoresis. Physical Exam Physical Exam General: Well developed, well nourished, no acute distress, well appearing HEENT: Pupils equally round and reactive to light, EOMI, no discharge, normal conjunctiva Neck: Supple, no nuchal rigidity, no JVD, trachea midline, no tenderness Cardiac: RRR, no murmurs, no gallops, no rubs Chest/Lungs: CTAB, no wheeze, no rhonchi, no crackles Abdomen: soft, non-distended, no guarding, no peritoneal signs, non-tender Back: No tenderness Extremities: no edema, pulses intact, non-tender,capillary refill <3 sec bilateral upper and lower extremities, Neuro: Alert and oriented x 4, no focal deficits, normal speech Vitals Vitals: Vital Signs Date Time Temp Pulse Resp B/P (MAP) Pulse Ox O2 Delivery O2 Flow Rate FiO2 05/13/19 15:06 97.3 76 20 172/70 (104) 97 Room Air 97.3 Labs Labs Laboratory Tests Test 05/12/19 23:21 05/13/19 09:12 05/13/19 13:20 White Blood Count 8.8 x10^3/uL (4.0-11.0) Red Blood Count 5.23 x10^6/uL (3.50-5.40) Hemoglobin 13.9 g/dL (12.0-15.5) Hematocrit 43.3 % (36.0-47.0) Mean Corpuscular Volume 83 fL (79-100) Mean Corpuscular Hemoglobin 27 pg (25-35) Mean Corpuscular Hemoglobin Concent 32 g/dL (31-37) Red Cell Distribution Width 16.8 % (11.5-14.5) Platelet Count 333 x10^3/uL (140-400) Neutrophils (%) (Auto) 64 % (31-73) Lymphocytes (%) (Auto) 23 % (24-48) Monocytes (%) (Auto) 10 % (0-9) Eosinophils (%) (Auto) 1 % (0-3) Basophils (%) (Auto) 1 % (0-3) Neutrophils # (Auto) 5.6 x10^3/uL (1.8-7.7) Lymphocytes # (Auto) 2.0 x10^3/uL (1.0-4.8) Monocytes # (Auto) 0.9 x10^3/uL (0.0-1.1) Eosinophils # (Auto) 0.1 x10^3/uL (0.0-0.7) Basophils # (Auto) 0.1 x10^3/uL (0.0-0.2) Prothrombin Time 13.2 SEC (11.7-14.0) Prothromb Time International Ratio 1.0 (0.8-1.1) Activated Partial Thromboplast Time 29 SEC (24-38) Sodium Level 140 mmol/L (136-145) Potassium Level 3.9 mmol/L (3.5-5.1) Chloride Level 103 mmol/L (98-107) Carbon Dioxide Level 26 mmol/L (21-32) Anion Gap 11 (6-14) Blood Urea Nitrogen 15 mg/dL (7-20) Creatinine 0.9 mg/dL (0.6-1.0) Estimated GFR (Cockcroft-Gault) 77.3 BUN/Creatinine Ratio 17 (6-20) Glucose Level 101 mg/dL (70-99) Calcium Level 9.3 mg/dL (8.5-10.1) Magnesium Level 1.9 mg/dL (1.8-2.4) Total Bilirubin 0.1 mg/dL (0.2-1.0) Aspartate Amino Transf (AST/SGOT) 22 U/L (15-37) Alanine Aminotransferase (ALT/SGPT) 14 U/L (14-59) Alkaline Phosphatase 104 U/L (46-116) Total Protein 8.5 g/dL (6.4-8.2) Albumin 3.8 g/dL (3.4-5.0) Albumin/Globulin Ratio 0.8 (1.0-1.7) Thyroid Stimulating Hormone (TSH) 2.520 uIU/mL (0.358-3.74) Ethyl Alcohol Level < 10 mg/dL (0-10) Triglycerides Level 107 mg/dL (0-150) Cholesterol Level 146 mg/dL (0-200) LDL Cholesterol, Calculated 92 mg/dL (0-100) VLDL Cholesterol, Calculated 21 mg/dL (0-40) Non-HDL Cholesterol Calculated 113 mg/dL (0-129) HDL Cholesterol 33 mg/dL (40-60) Cholesterol/HDL Ratio 4.4 Urine Opiates Screen Neg (NEG) Urine Methadone Screen Neg (NEG) Urine Barbiturates Neg (NEG) Urine Phencyclidine Screen Neg (NEG) Urine Amphetamine/Methamphetamine Neg (NEG) Urine Benzodiazepines Screen Neg (NEG) Urine Cocaine Screen Neg (NEG) Urine Cannabinoids Screen Neg (NEG) Urine Ethyl Alcohol Neg (NEG) Laboratory Tests Test 05/12/19 23:21 05/13/19 09:12 05/13/19 13:20 White Blood Count 8.8 x10^3/uL (4.0-11.0) Red Blood Count 5.23 x10^6/uL (3.50-5.40) Hemoglobin 13.9 g/dL (12.0-15.5) Hematocrit 43.3 % (36.0-47.0) Mean Corpuscular Volume 83 fL (79-100) Mean Corpuscular Hemoglobin 27 pg (25-35) Mean Corpuscular Hemoglobin Concent 32 g/dL (31-37) Red Cell Distribution Width 16.8 % (11.5-14.5) Platelet Count 333 x10^3/uL (140-400) Neutrophils (%) (Auto) 64 % (31-73) Lymphocytes (%) (Auto) 23 % (24-48) Monocytes (%) (Auto) 10 % (0-9) Eosinophils (%) (Auto) 1 % (0-3) Basophils (%) (Auto) 1 % (0-3) Neutrophils # (Auto) 5.6 x10^3/uL (1.8-7.7) Lymphocytes # (Auto) 2.0 x10^3/uL (1.0-4.8) Monocytes # (Auto) 0.9 x10^3/uL (0.0-1.1) Eosinophils # (Auto) 0.1 x10^3/uL (0.0-0.7) Basophils # (Auto) 0.1 x10^3/uL (0.0-0.2) Prothrombin Time 13.2 SEC (11.7-14.0) Prothromb Time International Ratio 1.0 (0.8-1.1) Activated Partial Thromboplast Time 29 SEC (24-38) Sodium Level 140 mmol/L (136-145) Potassium Level 3.9 mmol/L (3.5-5.1) Chloride Level 103 mmol/L (98-107) Carbon Dioxide Level 26 mmol/L (21-32) Anion Gap 11 (6-14) Blood Urea Nitrogen 15 mg/dL (7-20) Creatinine 0.9 mg/dL (0.6-1.0) Estimated GFR (Cockcroft-Gault) 77.3 BUN/Creatinine Ratio 17 (6-20) Glucose Level 101 mg/dL (70-99) Calcium Level 9.3 mg/dL (8.5-10.1) Magnesium Level 1.9 mg/dL (1.8-2.4) Total Bilirubin 0.1 mg/dL (0.2-1.0) Aspartate Amino Transf (AST/SGOT) 22 U/L (15-37) Alanine Aminotransferase (ALT/SGPT) 14 U/L (14-59) Alkaline Phosphatase 104 U/L (46-116) Total Protein 8.5 g/dL (6.4-8.2) Albumin 3.8 g/dL (3.4-5.0) Albumin/Globulin Ratio 0.8 (1.0-1.7) Thyroid Stimulating Hormone (TSH) 2.520 uIU/mL (0.358-3.74) Ethyl Alcohol Level < 10 mg/dL (0-10) Triglycerides Level 107 mg/dL (0-150) Cholesterol Level 146 mg/dL (0-200) LDL Cholesterol, Calculated 92 mg/dL (0-100) VLDL Cholesterol, Calculated 21 mg/dL (0-40) Non-HDL Cholesterol Calculated 113 mg/dL (0-129) HDL Cholesterol 33 mg/dL (40-60) Cholesterol/HDL Ratio 4.4 Urine Opiates Screen Neg (NEG) Urine Methadone Screen Neg (NEG) Urine Barbiturates Neg (NEG) Urine Phencyclidine Screen Neg (NEG) Urine Amphetamine/Methamphetamine Neg (NEG) Urine Benzodiazepines Screen Neg (NEG) Urine Cocaine Screen Neg (NEG) Urine Cannabinoids Screen Neg (NEG) Urine Ethyl Alcohol Neg (NEG) AYAKA DODGE MD May 13, 2019 18:02
[2019-05-13] MEDS ORDERED: SIMVASTATIN 10 MG TABLET PO SCH (21:00)
[2019-05-14 03:15] VITALS: BP 183/70
[2019-05-14 04:54] LABS: BASO % 0 % (0-3); EOS # 0.2 x10^3/uL (0.0-0.7); EOS % 5 % (0-3); HEMOGLOBIN 13.1 g/dL (12.0-15.5); LYMPH # 2.2 x10^3/uL (1.0-4.8); LYMPH % 51 % (24-48); MEAN CORPUSCULAR HEMOGLOBIN 27 pg (25-35); MEAN CORPUSCULAR HGB CONC 32 g/dL (31-37); MEAN CORPUSCULAR VOLUME 83 fL (79-100); MONO # 0.5 x10^3/uL (0.0-1.1); MONO % 12 % (0-9); NEUT # 1.4 x10^3/uL (1.8-7.7); NEUT % 33 % (31-73); PLATELET COUNT 293 x10^3/uL (140-400); RED BLOOD COUNT 4.92 x10^6/uL (3.50-5.40); RED CELL DISTRIBUTION WIDTH 16.4 % (11.5-14.5); WHITE BLOOD COUNT 4.3 x10^3/uL (4.0-11.0)
[2019-05-14 05:26] LABS: CALCIUM 8.8 mg/dL (8.5-10.1); CREATININE 0.7 mg/dL (0.6-1.0); GFR 103.3; POTASSIUM 3.8 mmol/L (3.5-5.1)
[2019-05-14 07:15] VITALS: BP 177/71
[2019-05-14] MEDS: ASPIRIN 325 MG TABLET PO SCH (08:04)
[2019-05-14] MEDS: amLODIPine BESYLATE 10 MG TABLET PO SCH (08:04)
[2019-05-14] MEDS ORDERED: SIMV10TA15 PO (09:20)
[2019-05-14] MEDS ORDERED: LISI1TAB23 PO (09:20)
[2019-05-14] MEDS ORDERED: ASPI325T8 PO (09:20)
[2019-05-14] MEDS ORDERED: hydroCHLOROthiazide 12.5 MG CAPSULE PO ONE (09:30)
[2019-05-14] MEDS ORDERED: LISINOPRIL 10 MG TABLET PO ONE (09:30)
--- NOTE | 2019-05-14 10:24 | CARD ---
MR#: [id number] Date of Study: 05/14/2019 Ordering Physician: AYAKA DODGE, Referring Physician: AYAKA DODGE, Tech: Cathleen Parnell APPROVED REPORT EXAM: Two-dimensional and M-mode echocardiogram with Doppler and color Doppler. Other Information Quality : AverageHR: 60bpm INDICATION CVA/TIA Echo Enhancing Agent Indication: Rule Out Septal Defect Agent/Amount Used: Agitated Saline 10mL RISK FACTORS Hypertension 2D DIMENSIONS RVDd3.5 (2.9-3.5cm)Left Atrium(2D)3.5 (1.6-4.0cm) IVSd1.0 (0.7-1.1cm)Aortic Root(2D)2.4 (2.0-3.7cm) LVDd4.0 (3.9-5.9cm)LVOT Diameter1.9 (1.8-2.4cm) PWd1.1 (0.7-1.1cm)LVDs1.9 (2.5-4.0cm) FS (%) 51.6 %SV57.3 ml Aortic Valve AoV Peak Juve.140.2cm/sAoV VTI26.5cm AO Peak GR.7.9mmHgLVOT VTI 24.86cm AO Mean GR.5mmHgAI P 1/2 [id number] Mitral Valve MV E Nflogbiy30.9cm/sMV E Peak Gr.2mmHg MV DECEL [id number] A Schjuwkq41.2cm/s MV E Mean Gr.1mmHgE/A Ratio1.2 TDI Lateral E' P. V8.11cm/sMedial E' P. V6.11cm/s E/Lateral E'8.7E/Medial E'11.6 Tricuspid Valve TR P. Cmyfkjny388ws/sRAP [id number] TR Peak Gr.94ewByHJHO91foQd Pulmonary Vein S1 Wbzwehgn53.6cm/sS2 Mgqoksdn09.14cm/s D2 Amlxerbb14.1cm/sPVa [id number] LEFT VENTRICLE The left ventricle is normal size. There is mild concentric left ventricular hypertrophy. The left ve ntricular systolic function is normal and the ejection fraction is within normal range. The Ejection Fraction is 60-65%. There is normal LV segmental wall motion. Transmitral Doppler flow pattern is Gra de II-pseudonormal filling dynamics. RIGHT VENTRICLE The right ventricle is normal size. There is normal right ventricular wall thickness. The right ventr icular systolic function is normal. ATRIA The left atrium size is normal. The right atrium size is normal. The interatrial septum is intact wit h no evidence for an atrial septal defect or patent foramen ovale as noted on 2-D or Doppler imaging and a negative Bubble study. AORTIC VALVE The aortic valve is thickened but opens well. Doppler and Color Flow revealed no significant aortic r egurgitation. There is no significant aortic valvular stenosis. MITRAL VALVE The mitral valve is normal in structure and function. There is no evidence of mitral valve prolapse. There is no mitral valve stenosis. Doppler and Color-flow revealed trace mitral regurgitation. TRICUSPID VALVE The tricuspid valve is normal in structure and function. Doppler and Color Flow revealed trace tricus pid regurgitation with an estimated PAP of 34 mmHg. There is no tricuspid valve stenosis. PULMONIC VALVE The pulmonary valve is normal in structure and function. Doppler and Color Flow revealed trace pulmon ic valvular regurgitation. GREAT VESSELS The aortic root is normal in size. The ascending aorta is normal in size. The IVC is normal in size a nd collapses >50% with inspiration. PERICARDIAL EFFUSION There is no evidence of significant pericardial effusion. Critical Notification Critical Value: No <Conclusion> The left ventricle is normal size. The left ventricular systolic function is normal and the ejection fraction is within normal range. The Ejection Fraction is 60-65%. There is mild concentric left ventricular hypertrophy. The interatrial septum is intact with no evidence for an atrial septal defect or patent foramen ovale as noted on 2-D or Doppler imaging and a negative Bubble study. Doppler and Color Flow revealed no significant aortic regurgitation. There is no significant aortic valvular stenosis. Doppler and Color-flow revealed trace mitral regurgitation. Doppler and Color Flow revealed trace tricuspid regurgitation with an estimated PAP of 34 mmHg. Signed by : Oumar Wilson MD Electronically Approved : 05/14/2019 10:23:51
[2019-05-14 10:55] VITALS: BP 161/67
--- NOTE | 2019-05-14 13:08 | PDOC3 ---
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 Left side facial drooping for about 5 minutes on 05/12/19. Slurred speech for about 5 minutes on 05/12/19. HTN. Obesity. Brief Hospital Course Allergies Allergies Coded Allergies Type Severity Reaction Last Updated Verified No Known Drug Allergies 09/17/18 No Vital Signs Vital Signs Date Time Temp Pulse Resp B/P (MAP) Pulse Ox O2 Delivery O2 Flow Rate FiO2 05/14/19 10:55 97.5 67 18 161/67 (98) 98 Room Air 97.5 Lab Results Laboratory Tests Test 05/12/19 23:21 05/13/19 09:12 05/13/19 13:20 05/14/19 04:15 White Blood Count 8.8 x10^3/uL (4.0-11.0) 4.3 x10^3/uL (4.0-11.0) Red Blood Count 5.23 x10^6/uL (3.50-5.40) 4.92 x10^6/uL (3.50-5.40) Hemoglobin 13.9 g/dL (12.0-15.5) 13.1 g/dL (12.0-15.5) Hematocrit 43.3 % (36.0-47.0) 41.0 % (36.0-47.0) Mean Corpuscular Volume 83 fL (79-100) 83 fL (79-100) Mean Corpuscular Hemoglobin 27 pg (25-35) 27 pg (25-35) Mean Corpuscular Hemoglobin Concent 32 g/dL (31-37) 32 g/dL (31-37) Red Cell Distribution Width 16.8 % (11.5-14.5) 16.4 % (11.5-14.5) Platelet Count 333 x10^3/uL (140-400) 293 x10^3/uL (140-400) Neutrophils (%) (Auto) 64 % (31-73) 33 % (31-73) Lymphocytes (%) (Auto) 23 % (24-48) 51 % (24-48) Monocytes (%) (Auto) 10 % (0-9) 12 % (0-9) Eosinophils (%) (Auto) 1 % (0-3) 5 % (0-3) Basophils (%) (Auto) 1 % (0-3) 0 % (0-3) Neutrophils # (Auto) 5.6 x10^3/uL (1.8-7.7) 1.4 x10^3/uL (1.8-7.7) Lymphocytes # (Auto) 2.0 x10^3/uL (1.0-4.8) 2.2 x10^3/uL (1.0-4.8) Monocytes # (Auto) 0.9 x10^3/uL (0.0-1.1) 0.5 x10^3/uL (0.0-1.1) Eosinophils # (Auto) 0.1 x10^3/uL (0.0-0.7) 0.2 x10^3/uL (0.0-0.7) Basophils # (Auto) 0.1 x10^3/uL (0.0-0.2) 0.0 x10^3/uL (0.0-0.2) Prothrombin Time 13.2 SEC (11.7-14.0) Prothromb Time International Ratio 1.0 (0.8-1.1) Activated Partial Thromboplast Time 29 SEC (24-38) Sodium Level 140 mmol/L (136-145) 141 mmol/L (136-145) Potassium Level 3.9 mmol/L (3.5-5.1) 3.8 mmol/L (3.5-5.1) Chloride Level 103 mmol/L (98-107) 105 mmol/L (98-107) Carbon Dioxide Level 26 mmol/L (21-32) 28 mmol/L (21-32) Anion Gap 11 (6-14) 8 (6-14) Blood Urea Nitrogen 15 mg/dL (7-20) 13 mg/dL (7-20) Creatinine 0.9 mg/dL (0.6-1.0) 0.7 mg/dL (0.6-1.0) Estimated GFR (Cockcroft-Gault) 77.3 103.3 BUN/Creatinine Ratio 17 (6-20) Glucose Level 101 mg/dL (70-99) 100 mg/dL (70-99) Calcium Level 9.3 mg/dL (8.5-10.1) 8.8 mg/dL (8.5-10.1) Magnesium Level 1.9 mg/dL (1.8-2.4) Total Bilirubin 0.1 mg/dL (0.2-1.0) Aspartate Amino Transf (AST/SGOT) 22 U/L (15-37) Alanine Aminotransferase (ALT/SGPT) 14 U/L (14-59) Alkaline Phosphatase 104 U/L (46-116) Total Protein 8.5 g/dL (6.4-8.2) Albumin 3.8 g/dL (3.4-5.0) Albumin/Globulin Ratio 0.8 (1.0-1.7) Thyroid Stimulating Hormone (TSH) 2.520 uIU/mL (0.358-3.74) Ethyl Alcohol Level < 10 mg/dL (0-10) Triglycerides Level 107 mg/dL (0-150) Cholesterol Level 146 mg/dL (0-200) LDL Cholesterol, Calculated 92 mg/dL (0-100) VLDL Cholesterol, Calculated 21 mg/dL (0-40) Non-HDL Cholesterol Calculated 113 mg/dL (0-129) HDL Cholesterol 33 mg/dL (40-60) Cholesterol/HDL Ratio 4.4 Urine Opiates Screen Neg (NEG) Urine Methadone Screen Neg (NEG) Urine Barbiturates Neg (NEG) Urine Phencyclidine Screen Neg (NEG) Urine Amphetamine/Methamphetamine Neg (NEG) Urine Benzodiazepines Screen Neg (NEG) Urine Cocaine Screen Neg (NEG) Urine Cannabinoids Screen Neg (NEG) Urine Ethyl Alcohol Neg (NEG) Laboratory Tests Test 05/13/19 13:20 05/14/19 04:15 Urine Opiates Screen Neg (NEG) Urine Methadone Screen Neg (NEG) Urine Barbiturates Neg (NEG) Urine Phencyclidine Screen Neg (NEG) Urine Amphetamine/Methamphetamine Neg (NEG) Urine Benzodiazepines Screen Neg (NEG) Urine Cocaine Screen Neg (NEG) Urine Cannabinoids Screen Neg (NEG) Urine Ethyl Alcohol Neg (NEG) White Blood Count 4.3 x10^3/uL (4.0-11.0) Red Blood Count 4.92 x10^6/uL (3.50-5.40) Hemoglobin 13.1 g/dL (12.0-15.5) Hematocrit 41.0 % (36.0-47.0) Mean Corpuscular Volume 83 fL (79-100) Mean Corpuscular Hemoglobin 27 pg (25-35) Mean Corpuscular Hemoglobin Concent 32 g/dL (31-37) Red Cell Distribution Width 16.4 % (11.5-14.5) Platelet Count 293 x10^3/uL (140-400) Neutrophils (%) (Auto) 33 % (31-73) Lymphocytes (%) (Auto) 51 % (24-48) Monocytes (%) (Auto) 12 % (0-9) Eosinophils (%) (Auto) 5 % (0-3) Basophils (%) (Auto) 0 % (0-3) Neutrophils # (Auto) 1.4 x10^3/uL (1.8-7.7) Lymphocytes # (Auto) 2.2 x10^3/uL (1.0-4.8) Monocytes # (Auto) 0.5 x10^3/uL (0.0-1.1) Eosinophils # (Auto) 0.2 x10^3/uL (0.0-0.7) Basophils # (Auto) 0.0 x10^3/uL (0.0-0.2) Sodium Level 141 mmol/L (136-145) Potassium Level 3.8 mmol/L (3.5-5.1) Chloride Level 105 mmol/L (98-107) Carbon Dioxide Level 28 mmol/L (21-32) Anion Gap 8 (6-14) Blood Urea Nitrogen 13 mg/dL (7-20) Creatinine 0.7 mg/dL (0.6-1.0) Estimated GFR (Cockcroft-Gault) 103.3 Glucose Level 100 mg/dL (70-99) Calcium Level 8.8 mg/dL (8.5-10.1) Brief Hospital Course Ms. Muhammad is a 58 old [sex] who presented with [ ] 58 AA female, works at [employer] when her co workers noticed her bumping into gaviria, transient slurred speech, and for a few mins she could not write properly, MRI shows: Impression: 1. There are foci of restricted diffusion of the left caudate nucleus and lentiform nucleus, evidence of recent acute or early subacute infarcts. 2. There is other multifocal T2 and FLAIR hyperintense signal abnormality of the supratentorial parenchyma bilaterally, nonspecific findings which may be due to chronic microvascular ischemic disease especially if risk factors such as hypertension or diabetes and also given the presence of recent infarcts although sequela of an inflammatory demyelinating disease would be difficult to exclude based on imaging features given the foci which have a perpendicular orientation relative to the lateral ventricles. 3. Focus of signal change of the right cerebellum is likely sequela of previous hemorrhage. CT head, CXR, carotid neg.Echo bubble pending Was not on asa at home, hx of gait problesm in past, UDS neg etoh SOme small cerebellar hemorrhage maybe in the past NOn smoker, non drinker BP was high on admit She is back to her baseline now and on ER arrival NIH 0. NO pt needs HOme today on PO asa 325, statin 10, and LISINOPRIl HCTZ 10/12. 5 combo once a day to help control BP pt seen and examined dc < 30 Discharge Information Condition at Discharge: Improved, Stable Disposition/Orders: D/C to Home Scheduled Amlodipine Besylate (Amlodipine Besylate) 10 Mg Tablet, 10 MG PO DAILY, #30 Prescribed by: STAR LOWERY MD on 11/08/161130 Last Action: Continued on 05/13/191130 by ANJELICA SHETH Aspirin (Aspirin) 325 Mg Tablet, 325 MG PO DAILYWBKFT for cva for 60 Days, #60 Prescribed by: ANJELICA SHETH on 05/14/19 0920 Lisinopril/Hydrochlorothiazide (Lisinopril-Hctz 10-12.5 Mg Tab) 1 Each Tablet, 1 TAB PO DAILY for htn, #30 Ref 5 Prescribed by: ANJELICA SHETH on 05/14/19 0920 Simvastatin (Simvastatin) 10 Mg Tablet, 10 MG PO QHS for cva for 60 Days, #60 Prescribed by: ANJLEICA SHETH on 05/14/19 0920 Scheduled PRN Meclizine Hcl (Meclizine Hcl) 12.5 Mg Tablet, 1 TAB PO TID PRN for DIZZINESS, #20 Ref 3 Prescribed by: Christen Carlos APRN on 10/08/182016 Last Action: Continued on 05/13/191130 by ANJELICA SHETH Oxycodone/Apap 7.5-325 (Percocet 7.5-325 Mg Tablet ) 1 Each Tablet, 1 TAB PO PRN Q4HRS PRN for PAIN, #50 Ref 0 Prescribed by: ADELA KIRKPATRICK on 09/17/18 1142 Last Action: Continued on 05/13/19 1131 by ANJELICA SHETH Discontinued Medications Cephalexin (Cephalexin) 500 Mg Capsule, 1 CAP PO BID, #14 Prescribed by: Christen Carlos APRN on 10/08/182016 Last Action: HELD on 05/13/19 1131 by ANJELICA MURRELL MD May 14, 2019 13:08
--- NOTE | 2019-05-14 13:48 | PDOC ---
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 Left side facial drooping for about 5 minutes on 05/12/19. Slurred speech for about 5 minutes on 05/12/19. HTN. Obesity. RECOMMENDATIONS/PLAN: Continue ASA 325 mg daily. Continue Zocor 10 mg HS. Control BP. Treat medical diseases. Brain MRI performed. Carotid A US + Doppler performed. Echo + Bubble study performed. Weight reduction. FU with PCP. FU with Neurology in 1-2 months. History of Present Illness This is a 58 AA female patient with history of HTN. Zaria working in [employer] on 05/12/2019, she suddenly had symptoms of left side of facial drooping and slurred speech. Her co workers noticed her bumping into gaviria, transient slurred speech, and for a few minutes and she could not write properly, she she was brought to the ER of [facility]. Her symptoms lasted for about 5 minutes then resolved on arrival and her NIH score was 0. 05/14/19: No recurrent CVA symptoms. Past Medical History Cardiovascular: No pertinent hx, HTN Pulmonary: No pertinent hx GI: No pertinent hx Heme/Onc: No pertinent hx Hepatobiliary: No pertinent hx Psych: No pertinent hx Rheumatologic: No pertinent hx Infectious disease: No pertinent hx Past Surgical History Cholecystectomy, Hysterectomy, Knee Replacement Family History Unknown. Social History Smoke: Denied. ALCOHOL: Denied. Drugs: Denied. ALLERGY: NKDA MEDICATIONS: Refer to MAR REVIEW OF SYSTEMS: Constitutional: Obesity. Head: No traumatic brain or head injury. Skin: No edema, or rash. Ear: No infection. Eyes: No vision loss or color blindness. Nose: No bleeding or purulent discharges. Hearing: No hearing decrease. Neck: No injury. Breast: No history of cancer, masses,or discharges. Cardiac: HTN. Pulmonary: No COPD. GI: No GI ulcer, GI bleeding. Urinary/genital: UTI. Endocrinologic: Obesity. Skeletomuscular: No muscular atrophy. Neurological: see HP. Psychiatric: Denies drug use/abuse. Otherwise, not [id number] review of systems. PHYSICAL EXAMINATION: General appearance is in no acute distress. HEENT: Normocephalic and nontraumatic. Eyes, nose, ears, and throat are unremarkable. Neck is supple. No lymphadenopathy. No bruits are heard over the carotid artery. No crepitus. Cardiovascular: S1, S2, regular rate and rhythm. Pulmonary: Clear to auscultation bilaterally. Abdomen: Bowel sounds are positive. Abdomen is soft, nontender, and nondist ended. Extremities: No rash, lesions, or edema. No restriction of range of motion NEUROLOGICAL EXAMINATION: Alert Oriented to time, place and person. PERRL. EOMI. CN: no focal findings. Muscle tone: within normal. Muscle strength: 5 DTR: 2 Plantar reflex: Flexor response bilaterally Gait: at her baseline normal. Sensory exam: no abnormal findings. No cerebellar signs elicited. F-T-N test accurate. Objective Objective Vital Signs Date Time Temp Pulse Resp B/P (MAP) Pulse Ox O2 Delivery O2 Flow Rate FiO2 05/14/19 10:55 97.5 67 18 161/67 (98) 98 Room Air 97.5 Intake and Output 05/14/19 07:00 Intake Total 1040 ml Output Total 2 ml Balance 1038 ml Intake Oral 1040 ml Output Urine Total 2 ml Vitals Signs Vitals VS - Last 72 Hours, by Label Date Time Temp Pulse Resp B/P (MAP) Pulse Ox O2 Delivery O2 Flow Rate FiO2 05/14/19 10:55 97.5 67 18 161/67 (98) 98 Room Air 97.5 05/14/19 09:54 67 148/52 05/14/19 08:04 70 177/71 05/14/19 07:15 97.7 70 20 177/71 (106) 97 Room Air 97.7 05/14/19 03:15 97.6 62 20 183/70 (107) 98 Room Air 97.6 05/13/19 23:35 97.9 66 18 154/66 (95) 96 Room Air 97.9 05/13/19 20:10 Room Air 05/13/19 19:45 98.1 68 20 182/63 (102) 95 Room Air 98.1 05/13/19 15:06 97.3 76 20 172/70 (104) 97 Room Air 97.3 05/13/19 12:35 68 169/63 05/13/19 11:15 97.6 68 18 169/63 (98) 96 Room Air 97.6 05/13/19 08:00 Room Air 05/13/19 07:15 98.1 65 20 173/64 (100) 98 Room Air 98.1 Laboratory Laboratory Laboratory Tests Test 05/14/19 04:15 White Blood Count 4.3 x10^3/uL (4.0-11.0) Red Blood Count 4.92 x10^6/uL (3.50-5.40) Hemoglobin 13.1 g/dL (12.0-15.5) Hematocrit 41.0 % (36.0-47.0) Mean Corpuscular Volume 83 fL (79-100) Mean Corpuscular Hemoglobin 27 pg (25-35) Mean Corpuscular Hemoglobin Concent 32 g/dL (31-37) Red Cell Distribution Width 16.4 % (11.5-14.5) Platelet Count 293 x10^3/uL (140-400) Neutrophils (%) (Auto) 33 % (31-73) Lymphocytes (%) (Auto) 51 % (24-48) Monocytes (%) (Auto) 12 % (0-9) Eosinophils (%) (Auto) 5 % (0-3) Basophils (%) (Auto) 0 % (0-3) Neutrophils # (Auto) 1.4 x10^3/uL (1.8-7.7) Lymphocytes # (Auto) 2.2 x10^3/uL (1.0-4.8) Monocytes # (Auto) 0.5 x10^3/uL (0.0-1.1) Eosinophils # (Auto) 0.2 x10^3/uL (0.0-0.7) Basophils # (Auto) 0.0 x10^3/uL (0.0-0.2) Sodium Level 141 mmol/L (136-145) Potassium Level 3.8 mmol/L (3.5-5.1) Chloride Level 105 mmol/L (98-107) Carbon Dioxide Level 28 mmol/L (21-32) Anion Gap 8 (6-14) Blood Urea Nitrogen 13 mg/dL (7-20) Creatinine 0.7 mg/dL (0.6-1.0) Estimated GFR (Cockcroft-Gault) 103.3 Glucose Level 100 mg/dL (70-99) Calcium Level 8.8 mg/dL (8.5-10.1) Medication Medications Current Medications Aspirin ([email or web address] Aspirin) 325 mg DAILYWBKFT PO Last administered on 05/14/19at 08:04; Start 05/13/19 at 14:00 Hydrochlorothiazide (Microzide) 12.5 mg 1X ONCE PO Last administered on 05/14/19at 09:53; Start 05/14/19 at 09:30; Stop 05/14/19 at 09:31; Status DC Hydrochlorothiazide (Microzide) 12.5 mg DAILY PO ; Start 05/15/19 at 09:00 Lisinopril (Prinivil) 10 mg 1X ONCE PO Last administered on 05/14/19at 09:54; Start 05/14/19 at 09:30; Stop 05/14/19 at 09:31; Status DC Lisinopril (Prinivil) 10 mg DAILY PO ; Start 05/15/19 at 09:00 Simvastatin (Zocor) 10 mg QHS PO Last administered on 05/13/19at 20:43; Start 05/13/19 at 21:00 Comment Review of Relevant I have reviewed the following items thang (where applicable) has been applied. AYAKA DODGE MD May 14, 2019 13:48
[2019-05-14 15:03] VITALS: BP 142/56
--- NOTE | 2019-05-14 15:53 | NUR ---
Discharge Note: MIRELA PERALES [address] [place] [address] Discharge instructions and discharge home medications reviewed with Patient and a copy given. All questions have been answered and understanding verbalized. CVA, HTN, Diet Discontinued lines and drains: peripheral IV. Patient discharged to Home or Self Care with Self via Wheelchair
[2019-05-15] MEDS ORDERED: hydroCHLOROthiazide 12.5 MG CAPSULE PO SCH (09:00)
[2019-05-15] MEDS ORDERED: LISINOPRIL 10 MG TABLET PO SCH (09:00)
== END 2019-05-14 16:01 | disposition home or self-care (01) | DRG 66 ==
LOC: ER 22:58 → 6 SOUTH 05-13 00:30
PROVIDERS: ADMIT Internal Medicine; ATTEND Internal Medicine
DX: I63.9 Cerebral infarction, unspecified (principal); E66.9 Obesity, unspecified; I10 Essential (primary) hypertension; Z79.82 Long term (current) use of aspirin; Z90.710 Acquired absence of both cervix and uterus; Z96.659 Presence of unspecified artificial knee joint; Z68.34 Body mass index [BMI] 34.0-34.9, adult
CPT/HCPCS: 36415; 70450; 70551; 71045; 80048; 80053; 80061; 80307; 83735; 84443; 85025; 85610; 85730; 93005; 93306; 93880; 99285; G0480; G0378

== ENCOUNTER → 2021-07-29 | Outpatient (CLI) | payer OTHER ==
[~2021-07-29] MED LIST changes: +AMLO-187 PO; -AMLO10TA8 PO; +ASPI325T8 PO; +LISI10TA16 PO; -LISI10TA2 PO; +LISI1TAB35 PO; -MECL12.573 PO; +MECL12.582 PO; +SIMV10TA15 PO; -WARF-78 PO; +WARF5TAB2 PO
[2021-07-29 13:02] LABS: BASO # 0.1 x10^3/uL (0.0-0.2); BASO % 1 % (0-3); EOS # 0.3 x10^3/uL (0.0-0.7); EOS % 5 % (0-3); HEMATOCRIT 42.3 % (36.0-47.0); HEMOGLOBIN 13.8 g/dL (12.0-15.5); LYMPH # 2.2 x10^3/uL (1.0-4.8); LYMPH % 40 % (24-48); MEAN CORPUSCULAR HEMOGLOBIN 28 pg (25-35); MEAN CORPUSCULAR HGB CONC 33 g/dL (31-37); MEAN CORPUSCULAR VOLUME 86 fL (79-100); MONO # 0.6 x10^3/uL (0.0-1.1); MONO % 11 % (0-9); NEUT # 2.4 x10^3/uL (1.8-7.7); NEUT % 44 % (31-73); PLATELET COUNT 286 x10^3/uL (140-400); RED BLOOD COUNT 4.91 x10^6/uL (3.50-5.40); RED CELL DISTRIBUTION WIDTH 14.3 % (11.5-14.5); WHITE BLOOD COUNT 5.6 x10^3/uL (4.0-11.0)
[2021-07-29 13:44] LABS: ALBUMIN 3.9 g/dL (3.4-5.0); ALBUMIN/GLOBULIN RATIO 0.9 (1.0-1.7); CALCIUM 9.3 mg/dL (8.5-10.1); CREATININE 0.9 mg/dL (0.6-1.0); GFR 76.5; POTASSIUM 3.9 mmol/L (3.5-5.1); TOTAL BILIRUBIN 0.3 mg/dL (0.2-1.0); TOTAL PROTEIN 8.2 g/dL (6.4-8.2)
[2021-07-29 13:49] LABS: CHOLESTEROL/HDL RATIO 4.7
== END ==
LOC: LAB 12:36
PROVIDERS: ATTEND Family Medicine
DX: Z13.220 Encounter for screening for lipoid disorders (principal); I10 Essential (primary) hypertension
CPT/HCPCS: 36415; 80053; 80061; 83721; 85025

== ENCOUNTER → 2021-08-04 | Outpatient (CLI) | payer OTHER ==
--- NOTE | 2021-08-04 15:02 | KCIC ---
EXAM: XR WRIST 3V 08/04/2021 11:00 AM CLINICAL INDICATION: Bilateral wrist pain, evaluate for degenerative changes. Worsening swelling rad ially. COMPARISON: None TECHNIQUE: PA, oblique, and lateral views of the left and right wrist. FINDINGS: Both scaphoids are sclerotic in appearance. There is widening of the scapholunate interval s bilaterally with proximal migration of capitate. There is moderate radiocarpal joint space narrowin g, greater on the right. There are cystic changes in the distal radius bilaterally and scattered cyst s or erosions, throughout the carpus bilaterally. There is degenerative joint disease in the mid carp al joints, triscaphe joint, and first CMC joints. Ulnar negative variance is noted bilaterally. There is a large chronic-appearing osseous fragment or osteophyte near the radial styloid on the left. The re is soft tissue swelling bilaterally, greatest radially. 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 S clerotic appearance of both scaphoids and widening of the scapholunate intervals. Findings may be seq uela of SLAC wrist. Electronically signed by: Roslyn Zheng MD (08/04/2021 2:59 PM) [id number]
== END ==
LOC: KCIC 10:54
PROVIDERS: ATTEND Family Medicine
DX: M19.032 Primary osteoarthritis, left wrist (principal); M19.031 Primary osteoarthritis, right wrist; M79.89 Other specified soft tissue disorders
CPT/HCPCS: 73110-50

== ENCOUNTER → 2021-08-17 | Outpatient (CLI) | payer OTHER ==
--- NOTE | 2021-08-18 10:36 | RAD ---
INDICATION: 61 years of age asymptomatic female patient presents for screening mammography. No person al or family history of breast cancer. TECHNIQUE: Full field craniocaudal and mediolateral oblique images of both breasts were obtained usi ng digital technique with tomosynthesis. COMPARISON: Prior mammographic imaging dating back to 02/03/2008. BREAST COMPOSITION: Category B: There are scattered fibroglandular densities. FINDINGS: The parenchymal pattern appears stable. Benign calcifications are present. No suspicious masses, microcalcifications or architectural distortion is present to suggest malignanc y in either breast. The visualized axillae are unremarkable. IMPRESSION: No mammographic evidence of malignancy. RECOMMENDATION: Annual screening mammography is recommended, unless clinically indicated sooner based on symptoms or change in physical exam. BIRADS 2: BENIGN Patient information is entered into the reminder system with a target due date for the next screening mammogram. Mammography is the most sensitive method for finding small breast cancers, but it does not detect the m all and is not a substitute for careful clinical examination. A negative mammogram does not negate a clinically suspicious finding and should not result in delay in biopsying a clinically suspicious a bnormality. "Our facility is accredited by the [employer] Mammography Program." Electronically signed by: Eladio Ortega DO (08/18/2021 10:33 AM) [id number]
== END ==
LOC: MAMMO 10:40
PROVIDERS: ATTEND Family Medicine
DX: Z12.31 Encounter for screening mammogram for malignant neoplasm of breast (principal)
CPT/HCPCS: 77063; 77067